=== PATIENT | female | born 1970 | race African-American/Black ===

== ENCOUNTER → 2020-01-02 13:25 | Outpatient (BNVA) | payer OTHER, SELFPAY | PROVIDERS: Visit Provider Advanced Practice Midwife | DX: Z30.42 Encounter for surveillance of injectable contraceptive (principal) | CPT/HCPCS: 96372; 99211; J1050 ==

== ENCOUNTER 2020-02-08 10:22 | Outpatient (REF) | payer OTHER, SELFPAY ==
--- NOTE | 2020-02-08 10:30 | EMG_ITS ---
HISTORY OF PRESENT ILLNESS: This is a 50-year-old woman with more than 6 month history of bilateral upper extremity numbness, tingling, dull ache, and some pain on opening and closing and spreading her fingers out. MEDICATIONS: She is currently on no medications. PHYSICAL EXAMINATION: On examination, she is alert and oriented with normal intellectual functions. Cranial nerves II through XII are normal. Muscle tone and strength are normal. No Tinel or Phalen sign. IMPRESSION: Rule out carpal tunnel syndrome, rule out cervical radiculopathy. Nerve conduction EMG study: Normal electrodiagnostic study of both upper extremities with no evidence of carpal tunnel syndrome or nerve entrapment. Normal EMG of C5-T1 innervated muscles bilaterally. MD KIA Coleman/KATHIE / [id number]
== END 2020-02-08 10:23 | disposition home or self-care (01) ==
LOC: HO.NEURO 10:22
PROVIDERS: PCP Internal Medicine; Visit Provider Internal Medicine
DX: R29.898 Other symptoms and signs involving the musculoskeletal system (principal); M79.641 Pain in right hand
CPT/HCPCS: 95886; 95913

== ENCOUNTER 2020-02-20 13:52 | Outpatient (REF) | payer OTHER, SELFPAY ==
[2020-02-21 11:56] LABS: BV Int Neg Control Negative (Negative); BV Int Pos Control Positive (Positive)
[2020-02-22 21:42] LABS: C. trachomatis RNA TMA NOT DETECTED (NOT DETECTED); N. gonorrhoeae RNA TMA NOT DETECTED (NOT DETECTED)
== END 2020-02-20 13:53 | disposition home or self-care (01) ==
LOC: HO.LAB 13:52
PROVIDERS: PCP Internal Medicine; Visit Provider Obstetrics & Gynecology
DX: Z01.419 Encounter for gynecological examination (general) (routine) without abnormal findings (principal); N84.1 Polyp of cervix uteri
CPT/HCPCS: 87480; 87491; 87510; 87591; 87660; 88305

== ENCOUNTER → 2020-02-29 13:38 | Outpatient (BNVA) | payer OTHER, SELFPAY | PROVIDERS: PCP Internal Medicine; Visit Provider Nurse Practitioner Family | DX: Z76.89 Persons encountering health services in other specified circumstances (principal) ==

== ENCOUNTER → 2020-03-23 13:59 | Outpatient (BNVA) | payer OTHER, SELFPAY | PROVIDERS: PCP Internal Medicine; Visit Provider Advanced Practice Midwife | DX: Z30.42 Encounter for surveillance of injectable contraceptive (principal) | CPT/HCPCS: 96372; 99211 ==

== ENCOUNTER 2020-03-26 12:29 | Outpatient (REF) | payer OTHER, SELFPAY ==
--- NOTE | ~2020-03-26 | MM_ITS ---
EXAMINATION: MM DIAGNOSTIC DIGITAL MAMMOGRAPHY, BILATERAL CLINICAL INFORMATION: Due for yearly. Follow-up benign-appearing nodule/duct ectasia mid right breast. No known family history breast cancer. The lifetime risk of breast cancer based on the Tyrer-Cuzick Model is 12%. COMPARISON: Mammography: 09/26/2019, 03/23/2019 (BI-RADS 0), 03/17/2018, 03/10/2017, targeted right breast ultrasound 03/29/2019. TECHNIQUE: Digital mammography is performed in craniocaudal and mediolateral oblique views along with computer-aided detection (CAD). FINDINGS: There are scattered areas of fibroglandular density (ACR BI-RADS breast composition Category b). Parenchymal pattern is similar to prior study. Nodularity central right breast just lateral to midline is stable from recent studies. There is no developing density or architectural abnormality. No abnormal calcifications. The left breast is unremarkable. The bilateral axilla and skin contours are unremarkable. There are no significant changes from prior study. Results are provided to the patient at time of visit by the technologist. MM/MM diagnostic mammo BI IMPRESSION: 1. Right: Benign nodularity central breast similar to recent exams. No suspicious changes. 2. Left: No mammographic evidence of malignancy. ASSESSMENT: BI-RADS 3: Probably Benign RECOMMENDATION: Diagnostic mammography at time of next annual exam, due in 12 months. This patient's information was entered into a reminder system with a target due date for their next mammogram.
== END 2020-03-26 12:30 | disposition home or self-care (01) ==
LOC: HO.MAMMO 12:29
PROVIDERS: PCP Internal Medicine; Visit Provider Internal Medicine
DX: R92.2 Inconclusive mammogram (principal)
CPT/HCPCS: 77066

== ENCOUNTER 2020-04-12 06:28 | Day surgery (SDC) | payer OTHER, SELFPAY ==
[2020-04-06 12:56] VITALS: BMI 20.5
--- NOTE | 2020-04-11 09:17 | P.CONAN_ITS ---
Documented by User: Enriqueta Dumont 04/11/20 09:18 HPI - Anesthesia Eval Consult details Narrative: 50yo F for Colonoscopy Confirm Height and Weight PMFSH Active Problems Active Problems: All Active Problems (Updated 04/06/20 @ 12:53 by Elma Larose) [place] contraception (Acute) Hives (Acute) Morbid obesity with BMI of 40.0-44.9, adult (Acute) Smoker (Acute) Asthma (Acute) Fibromyalgia (Acute) Bilateral hand pain (Acute) Weakness of both hands (Acute) Arthralgia (Acute) Past Medical History Medical History Arthralgia Asthma Bilateral hand pain Fibromyalgia Hives Morbid obesity with BMI of 40.0-44.9, adult REGINO on CPAP Smoker Weakness of both hands Family History Family History Father Medical history unknown Mother Medical history unknown Surgical History Surgical History History of History of repair of rotator cuff Social History Social History Are you a primary animal care provider to a significant other at home: No Do you presently have visiting nurse or other home services: No Alcohol intake: current Alcohol intake frequency: holidays/special occasions only Smoking Status: Current every day smoker Tobacco Type: Cigarette Packs Per Day: 1 Cigarettes Per Day: 20.0 Smoked in Last 30 Days: Yes Patient Interested in Nicotine Replacement: No Patient Given Instructions on How to Stop Smoking: Yes Date Education Initiated: 04/06/20 Use of substances other than those prescribed or required for medical reasons: No Have you been hit, kicked, punched, or otherwise hurt by someone within the past year? If so, by whom?: No Advance Directives: No Advance Directives Information Provided: No Advance Directives on File: No Recently lost weight without trying: No Gender identity: female Meds Allergies Allergy/AdvReac Type Severity Reaction Status Date / Time penicillin V Allergy Intermediate Hives, Verified 03/23/20 08:57 anaphylaxis Penicillins [PENICILLINS] Allergy Intermediate HIVES Verified 03/23/20 08:57 Home Medications Medication Instructions Recorded Confirmed Last Taken Type albuterol sulfate 2.5 mg CONTINUOUS NEBULIZATION TID 01/06/20 04/06/20 Unknown History PRN ml albuterol sulfate 90 mcg/actuation 2 puff INHALATION .4 TIMES A DAY 01/06/20 04/06/20 Unknown History aerosol inhaler PRN g Exam Exam Date and Time: April 11, 2020 0917 Height,Weight and Vital Signs: Height 5 ft 4 in Weight 54.431 kg Assessment and Plan Assessment Anesthesia Assessment: Chart Reviewed Documented by User: Sri Hines 04/12/20 07:35 PMFSH Past Medical History Medical History Arthralgia Asthma Bilateral hand pain Fibromyalgia Hives Morbid obesity with BMI of 40.0-44.9, adult REGINO on CPAP Smoker Weakness of both hands Family History Family History Father Medical history unknown Mother Medical history unknown Surgical History Surgical History History of History of repair of rotator cuff Social History Social History Are you a primary animal care provider to a significant other at home: No Do you presently have visiting nurse or other home services: No Alcohol intake: current Alcohol intake frequency: holidays/special occasions only Smoking Status: Current every day smoker Tobacco Type: Cigarette Packs Per Day: 1 Cigarettes Per Day: 20.0 Smoked in Last 30 Days: Yes Patient Interested in Nicotine Replacement: No Patient Given Instructions on How to Stop Smoking: Yes Date Education Initiated: 04/06/20 Use of substances other than those prescribed or required for medical reasons: No Have you been hit, kicked, punched, or otherwise hurt by someone within the past year? If so, by whom?: No Advance Directives: No Advance Directives Information Provided: No Advance Directives on File: No Recently lost weight without trying: No Gender identity: female Meds Allergies Allergy/AdvReac Type Severity Reaction Status Date / Time penicillin V Allergy Intermediate Hives, Verified 03/23/20 08:57 anaphylaxis Penicillins [PENICILLINS] Allergy Intermediate HIVES Verified 03/23/20 08:57 Home Medications Medication Instructions Recorded Confirmed Last Taken Type albuterol sulfate 2.5 mg CONTINUOUS NEBULIZATION TID 01/06/20 04/06/20 Unknown History PRN ml albuterol sulfate 90 mcg/actuation 2 puff INHALATION .4 TIMES A DAY 01/06/20 04/06/20 Unknown History aerosol inhaler PRN g Exam Airway Mallampati Class: I Neck ROM: Full Heart: RRR Lungs: CTA
[2020-04-12 06:42] VITALS: BP 136/84; PULSE 96; RESP 16; TEMP 37.1; O2SAT 97
[2020-04-12] MEDS: Lactated Ringers 1,000 ML 100 ML IVCONT (06:58)
[2020-04-12 07:46] VITALS: BMI 46.8
--- NOTE | 2020-04-12 07:48 | MHC.SHP ---
Pre-Procedural Eval Section B Chief Complaint: Screening Details of Present Illness: colon cancer screening No changes in clinical status since preop Relevant Family History (Specify if Yes): No Relevant Social History: None Present Medications: see Short Stay Collaborative assessment Medical History: Significant History (Morbid Obesity, asthma) History of Previous Operations: No relevant previous surgery Allergies: Allergies Allergy/AdvReac Type Severity Reaction Status Date / Time penicillin V Allergy Intermediate Hives, Verified 03/23/20 08:57 anaphylaxis Penicillins [PENICILLINS] Allergy Intermediate HIVES Verified 03/23/20 08:57 Review of Systems Sugical H&P ROS: Negative: Constitution, Cardiovascular and Gastrointestinal and Yes, Specify: Respiratory (asthma stable) Exam Surgical H&P Exam: Normal: HEENT, Normal: Heart, Normal: Lungs and Normal: Extremities and Significant Findings: Abdomen (central obesity) Plan Diagnosis/Plan: Unchanged I have reviewed the history and physical and performed a pertinent physical examination on my patient. No changes have occurred unless specified.yes
[2020-04-12 08:38] VITALS: BP 145/76; PULSE 97; RESP 16; TEMP 36.8; O2SAT 98
--- NOTE | 2020-04-12 08:50 | PM.OP ---
Brief Operative Note Date of Service: 04/12/20 Pre-op diagnosis: COLON CANCER SCREENING-#1 MORBID OBESITY HX REGINO-NO CPAP//ASTHMA Post-op diagnosis: other (POLYPS, ASPIRATION RISK WITH SEDATION/REGINO) Procedure: COLONOSCOPY EXCIS POLYPECTOMY X2, EPI INJECTION, HOT SNARE POLYPECTOMY X1 Implants: NONE Surgeon: Elvia Mendez MD Anesthesia: MAC (MD JOSE G--MD DONELL; RECOMEND CONSIDER GA FOR ANY FURTHER PROCEDURES WITH SEDATION.) Estimated blood loss (mL): 10 Pathology: other (PROX ASCENDING COLON, RECTAL(2POLYPS)) Condition: stable Disposition: PACU
[2020-04-12 08:53] VITALS: BP 150/78; PULSE 89; RESP 16; O2SAT 96
[2020-04-12 09:06] VITALS: BP 121/65; PULSE 86; RESP 16; O2SAT 98
--- NOTE | 2020-04-12 09:49 | HO.POSTANES ---
Post Anesthesia Evaluation Post Anesthesia Evaluation Vital Signs: Vital Signs Temp Pulse Resp BP Pulse Ox 04/12/20 09:06 86 16 121/65 98 04/12/20 08:53 89 16 150/78 H 96 04/12/20 08:38 98.2 F 97 16 145/76 H 98 04/12/20 06:42 98.8 F 96 16 136/84 97 Anesthesia: Monitored Mental Status: Awake Pain Control: Satisfactory Nausea/Vomiting: None Hydration: Adequate Anesthesia-Related Issues: No Anes. Related Issues
--- NOTE | 2020-04-12 12:59 | W.PM.OPN ---
Operative Note Operative Note Date of Service: 04/12/20 Narrative: 04/12/20 Pre-op diagnosis: COLON CANCER SCREENING-#1 MORBID OBESITY HX REGINO-NO CPAP//ASTHMA Post-op diagnosis: other (POLYPS, ASPIRATION RISK WITH SEDATION/REGINO) Procedure: COLONOSCOPY EXCIS POLYPECTOMY X2, EPI INJECTION, HOT SNARE POLYPECTOMY X1 Implants: NONE Surgeon: Elvia Mendez MD Anesthesia: MAC (MD JOSE G--MD DONELL; RECOMEND CONSIDER GA FOR ANY FURTHER PROCEDURES WITH SEDATION.) FINDINGS: MAR: Sphincter tone adequate Video colonoscope introduced without difficulty and navigated into the rectosigmoid sigmoid area. From there passage up through transverse, ascending colon wasdown into the cecum. PREP: SOME RESIDUAL SLIGHTLY THICK FLUID NEEDED FLUSNING AND SUCTIONING. There was significant spasm and increased respiratory excursions due to her REGINO. I identified a diminutive polyp in cecum-removed with excisional bx forceps. Slow withdrawal of scope, good rotational views were had. Another polyp identified in the rectum: epi injection 2cc submucosal, hot snare removal-retrieved. ARV was clear. Complex airway management due to her Morbid Obesity, Smoking hx and REGINO. Anesthesia suggested for next procedure like this consider General Anesthesia evaluation pre procedure. Estimated blood loss (mL): 10 Pathology: other (PROX ASCENDING COLON, RECTAL(2POLYPS)) Condition: stable Disposition: PACU REPEAT COLON CANCE SCREENING IN 3 YEARS DUE TO PRESENCE OF POLYPS AND SOME LIMITATIONS OF VIEWS DUE TO DIFFICULTY OF THE SEDATION.
== END 2020-04-12 09:35 | disposition home or self-care (01) ==
PROVIDERS: PCP Internal Medicine; Visit Provider Internal Medicine Gastroenterology
PROC: 0DJD8ZZ Inspection of Lower Intestinal Tract, Via Natural or Artificial Opening Endoscopic (ICD-10-PCS; CPT 45378; principal; 2020-04-12 07:30)
DX: Z12.11 Encounter for screening for malignant neoplasm of colon (principal); D12.2 Benign neoplasm of ascending colon; K62.1 Rectal polyp; J45.20 Mild intermittent asthma, uncomplicated; G47.33 Obstructive sleep apnea (adult) (pediatric); E66.01 Morbid (severe) obesity due to excess calories; Z68.41 Body mass index [BMI] 40.0-44.9, adult; F17.210 Nicotine dependence, cigarettes, uncomplicated; Z79.899 Other long term (current) drug therapy; Z88.0 Allergy status to penicillin
CPT/HCPCS: 45385; 45380; 45381; 88305; J0171

== ENCOUNTER → 2020-05-16 13:21 | Outpatient (BNVA) | payer OTHER, SELFPAY | PROVIDERS: PCP Internal Medicine; Visit Provider Nurse Practitioner Family ==

== ENCOUNTER 2020-05-17 13:39 | Outpatient (REF) | payer OTHER, SELFPAY ==
--- NOTE | ~2020-05-17 | XR_ITS ---
EXAMINATION: XR SHOULDER, LEFT CLINICAL INFORMATION: Pain COMPARISON: 07/28/2012 TECHNIQUE: AP external rotation, Grashey, scapular Y, and axillary views of the left shoulder. FINDINGS: No acute fracture or dislocation. There is widening of the acromioclavicular joint measuring up to 10 mm without step-off. Glenohumeral joint unremarkable. Soft tissues unremarkable. XR/XR shoulder LT min 2V IMPRESSION: No acute fracture or dislocation. Widening of the acromioclavicular joint may represent a grade 1 shoulder separation, indeterminate chronology.
== END 2020-05-17 13:40 | disposition home or self-care (01) ==
LOC: HO.XRAY 13:39
PROVIDERS: PCP Internal Medicine; Visit Provider Internal Medicine
DX: M25.512 Pain in left shoulder (principal)
CPT/HCPCS: 73030

== ENCOUNTER → 2020-05-23 08:46 | Outpatient (BNVA) | payer OTHER, SELFPAY | PROVIDERS: PCP Internal Medicine; Visit Provider Physician Assistant | DX: M75.82 Other shoulder lesions, left shoulder (principal) | CPT/HCPCS: 20610; 99202; J1040 ==

== ENCOUNTER 2020-05-25 18:50 | Outpatient (REF) | payer OTHER, SELFPAY ==
--- NOTE | ~2020-05-25 | MR_ITS ---
EXAMINATION: MRI LEFT SHOULDER WITHOUT CONTRAST CLINICAL INFORMATION: Left shoulder pain COMPARISON: Radiographs 05/17/2020. TECHNIQUE: MRI of the shoulder without contrast is performed on a 1.5 Kellie high-field scanner. FINDINGS: ROTATOR CUFF: Intact. Mild fatty atrophy at the subscapularis myotendinous junction which may be the result of a remote injury. BICEPS: Normal. CORACOACROMIAL ARCH: The undersurface of the acromion is flat, possibly post acromioplasty with a small subacromial spur. Resection of the distal clavicle. Mild subacromial-subdeltoid bursitis. Longitudinal edema along the posterolateral deltoid muscle superficially may be the result of a recent injection. LABRUM/CAPSULE: The posterior labrum is diminutive. GLENOHUMERAL JOINT/MARROW: No significant joint effusion. The humeral head is slightly subluxed posteriorly. ADDITIONAL FINDINGS: None. MR/MR shoulder LT wo con IMPRESSION: No rotator cuff tear. Possible remote injury at the subscapularis myotendinous junction noting fatty atrophy. Mild subacromial-subdeltoid bursitis. The posterior labrum is diminutive and the humeral head is slightly subluxed posteriorly. No acute findings.
== END 2020-05-25 18:51 | disposition home or self-care (01) ==
LOC: HO.MRI 18:50
PROVIDERS: Visit Provider Physician Assistant
DX: S46.002A Unspecified injury of muscle(s) and tendon(s) of the rotator cuff of left shoulder, initial encounter (principal)
CPT/HCPCS: 73221

== ENCOUNTER → 2020-06-07 14:26 | Outpatient (BNVA) | payer OTHER, SELFPAY | PROVIDERS: PCP Internal Medicine; Visit Provider Physician Assistant | DX: M75.82 Other shoulder lesions, left shoulder (principal); M79.7 Fibromyalgia | CPT/HCPCS: 99212 ==

== ENCOUNTER → 2020-06-08 13:00 | Outpatient (BNVA) | payer OTHER, SELFPAY | PROVIDERS: PCP Internal Medicine; Visit Provider Advanced Practice Midwife | DX: Z30.42 Encounter for surveillance of injectable contraceptive (principal) | CPT/HCPCS: 96372; 99211; J1050 ==

== ENCOUNTER 2020-06-20 15:30 | Outpatient (REF) | payer OTHER, SELFPAY ==
--- NOTE | ~2020-06-20 | US_ITS ---
EXAMINATION: LEFT UPPER EXTREMITY ULTRASOUND VENOUS DUPLEX. RIGHT SHOULDER. X-RAY. CLINICAL INFORMATION: Left arm pain. Right shoulder pain COMPARISON: None TECHNIQUE: Color, grayscale and Doppler imaging of left upper extremity was performed. Right shoulder 4 views. FINDINGS: RIGHT SHOULDER: The glenohumeral joint space is maintained normal. AC joint space is normal. There is minimal inferior glenohumeral and superior acromial spurring at the AC joint. No soft tissue calcification or loose body seen. No bony erosive changes. No acute fracture, dislocation or lytic process seen. The soft tissues are normal. ULTRASOUND VENOUS LEFT UPPER EXTREMITY: There is normal Doppler and color flow seen within left internal jugular, subclavian, axillary, basilic, brachial, radial, cephalic and ulnar veins. The soft tissues are normal. US/US venous duplex UE LT IMPRESSION: No visible acute fracture or dislocation right shoulder.
== END 2020-06-20 15:31 | disposition home or self-care (01) ==
LOC: HO.HMGCX 15:30
PROVIDERS: PCP Internal Medicine; Visit Provider Internal Medicine
DX: M79.602 Pain in left arm (principal); M25.511 Pain in right shoulder; M79.89 Other specified soft tissue disorders
CPT/HCPCS: 73030; 93971

== ENCOUNTER → 2020-07-02 15:31 | Outpatient (BNVA) | payer OTHER, SELFPAY | PROVIDERS: PCP Internal Medicine; Visit Provider Nurse Practitioner Family | DX: M79.18 Myalgia, other site (principal); M54.12 Radiculopathy, cervical region | CPT/HCPCS: 99202 ==

== ENCOUNTER 2020-07-03 12:51 | Outpatient (REF) | payer OTHER, SELFPAY ==
--- NOTE | ~2020-07-03 | XR_ITS ---
EXAMINATION: XR CERVICAL SPINE CLINICAL INFORMATION: Cervicalgia COMPARISON: 11/22/2014 TECHNIQUE: 3 views of the cervical spine were obtained. FINDINGS: No abnormal prevertebral soft tissue swelling is seen. No acute fracture is evident. There is again noted to be mild narrowing of the C5-6 disc space. Minimal spurring is present at this level. XR/XR cervical spine 3V IMPRESSION: Stable mild cervical spondylosis at the C5-6 level.
== END 2020-07-03 12:52 | disposition home or self-care (01) ==
LOC: HO.XRAY 12:51
PROVIDERS: PCP Internal Medicine; Visit Provider Nurse Practitioner Family
DX: M54.2 Cervicalgia (principal)
CPT/HCPCS: 72040

== ENCOUNTER → 2020-07-09 10:34 | Outpatient (BNVA) | payer OTHER, SELFPAY | PROVIDERS: PCP Internal Medicine; Visit Provider Nurse Practitioner Family ==

== ENCOUNTER 2020-07-10 15:08 | Outpatient (REF) | payer OTHER, SELFPAY ==
--- NOTE | ~2020-07-10 | MR_ITS ---
EXAMINATION: MR CERVICAL SPINE WITHOUT CONTRAST CLINICAL INFORMATION: Cervical region radiculopathy. COMPARISON: Cervical spine MRI 04/11/2015. TECHNIQUE: MRI of the cervical spine was obtained using routine sequences without contrast. FINDINGS: Straightening the cervical lordosis. The vertebral body heights are maintained. There is moderate disc volume loss at C5-C6. There is no bone marrow edema. There are no acute fractures. The craniocervical junction is unremarkable. The partially imaged intracranial compartment is unremarkable. No definite cord signal abnormality accounting for artifact. The cervical arterial flow voids are maintained. No significant extraspinal soft tissue findings. Small pars intermedia cyst within the posterior pituitary without mass effect. C2-C3: Shallow central disc protrusion without central canal stenosis. No foraminal stenosis. C3-C4: Uncovertebral joint spurring results in mild left-sided foraminal encroachment. No central canal and no right foraminal stenosis. C4-C5: Disc osteophyte results in mild to moderate central canal stenosis and flattening of the ventral cord. Uncovertebral joint hypertrophy and hypertrophic facet arthropathy result in mild bilateral foraminal encroachment. C5-C6: Diffuse disc osteophyte complex results in flattening of the ventral cord and moderate central canal stenosis. Advanced uncovertebral joint hypertrophy and hypertrophic facet arthropathy result in severe bilateral foraminal stenosis. C6-C7: Shallow central disc protrusion flattens the ventral cord resulting in mild to moderate central canal stenosis. Uncovertebral joint spurring and facet arthropathy result in mild to moderate left and mild right foraminal stenosis. C7-T1: Disc contour is normal. No central canal stenosis and no foraminal stenosis. MR/MR cervical spine wo con IMPRESSION: - Multilevel cervical spondylosis, greatest at C5-C6 where multifactorial degenerative changes result in moderate central canal stenosis, flattening of the ventral cord, and severe bilateral foraminal stenosis. - Spondylitic changes also result in mild to moderate central canal stenosis and flattening of the ventral cord at C4-C5 and C6-C7.
== END 2020-07-10 15:09 | disposition home or self-care (01) ==
LOC: HO.MRI 15:08
PROVIDERS: Visit Provider Anesthesiology
DX: M54.12 Radiculopathy, cervical region (principal)
CPT/HCPCS: 72141

== ENCOUNTER → 2020-07-17 11:49 | Outpatient (BNVA) | payer OTHER, SELFPAY | PROVIDERS: PCP Internal Medicine; Visit Provider Nurse Practitioner Family ==

== ENCOUNTER → 2020-08-29 13:04 | Outpatient (BNVA) | payer OTHER, SELFPAY | PROVIDERS: PCP Internal Medicine; Visit Provider Advanced Practice Midwife | DX: Z30.42 Encounter for surveillance of injectable contraceptive (principal) | CPT/HCPCS: 96372; 99211 ==

== ENCOUNTER → 2020-11-13 13:03 | Outpatient (BNVA) | payer OTHER, SELFPAY | PROVIDERS: PCP Internal Medicine; Visit Provider Advanced Practice Midwife | DX: Z30.42 Encounter for surveillance of injectable contraceptive (principal) | CPT/HCPCS: 96372; 99211 ==

== ENCOUNTER 2021-01-28 11:07 | Outpatient (REF) | payer OTHER, SELFPAY ==
[2021-01-28 11:23] LABS: MANUAL DIFF FLAG NO
[2021-01-28 11:55] LABS: Basophils Absolute Auto 0.1 X10*3/uL (0.0-0.2); Basophils Percent Auto 1.1 % (0-2); Eosinophils Absolute Auto 0.2 X10*3/uL (0.0-0.4); Eosinophils Percent Auto 2.1 % (0-4); Hematocrit 43.1 % (37.0-47.0); Hemoglobin 13.8 g/dl (12.0-16.0); Imm Gran Abs Auto 0.02 X10*3/uL (0.00-0.03); Imm Gran Pct Auto 0.3 % (0.0-0.4); Lymphocytes Absolute Auto 2.3 X10*3/uL (1.2-4.9); Lymphocytes Percent Auto 32.2 % (20-40); Mean Corpuscular Hemoglobin 29.7 pg (27.0-33.0); Mean Corpuscular Volume 92.9 fL (80.0-98.0); Mean Platelet Volume 11.2 fL (9.4-12.3); Monocytes Absolute Auto 0.6 X10*3/uL (0.1-1.2); Monocytes Percent Auto 8.1 % (2-11); Neutrophils Percent Auto 56.2 % (45-73); Platelet Count 227 X10*3/uL (160-400); Red Blood Count 4.64 X10*6/uL (4.20-5.50); Red Cell Distribution Width 15.4 % (11.0-16.0); White Blood Count 7.1 X10*3/uL (4.8-10.8)
[2021-01-28 12:20] LABS: Anion Gap 13 (12-20); Blood Urea Nitrogen 9 mg/dL (9-16); Calcium 9.3 mg/dL (8.4-10.2); Carbon Dioxide 24 mmol/L (22-29); Chloride 110 mmol/L (96-108); Cholesterol 199 mg/dL; Estimated Glomerular Filt Rate > 60; Glucose Random 111 mg/dL (60-115); HDL Cholesterol 36 mg/dL; LDL Cholesterol Calculated 145 mg/dl; Potassium 4.6 mmol/L (3.3-5.1); Sodium 142 mmol/L (135-145); Triglycerides 94 mg/dL; Uric Acid 5.8 mg/dL (2.4-5.7)
[2021-01-28 12:35] LABS: Estimated Average Glucose 120 mg/dL; Hemoglobin A1c % 5.8 %
[2021-01-28 13:07] LABS: Vitamin B12 482 pg/mL (200-900)
[2021-02-01 13:20] LABS: Vitamin D 25-OH, D2 <4 ng/mL; Vitamin D 25-OH, D3 10 ng/mL; Vitamin D 25-OH, Total 10 ng/mL (30-100)
== END 2021-01-28 11:08 | disposition home or self-care (01) ==
LOC: HO.LAB 11:07
PROVIDERS: PCP Internal Medicine; Visit Provider Nurse Practitioner Acute Care
DX: R73.03 Prediabetes (principal); M10.9 Gout, unspecified; E66.01 Morbid (severe) obesity due to excess calories
CPT/HCPCS: 36415; 80048; 80061; 82306; 82607; 82746; 83036; 84550; 85025

== ENCOUNTER 2021-02-01 13:33 | Outpatient (REF) | payer OTHER, SELFPAY ==
--- NOTE | ~2021-02-01 | MM_ITS ---
EXAMINATION: BONE DENSITOMETRY CLINICAL INDICATION: Screening for osteoporosis. COMPARISON: This is the patient's baseline examination. TECHNIQUE: Using a [employer] DXA System (software version: 13.1) manufactured by [employer], dual-energy x-ray absorptiometry was performed of the lumbar spine and left hip. The images are of good technical quality. Summary results are attached. FINDINGS: AP SPINE L1-L4: BMD 1.219 g/cm2, Z-score -0.9, T-score 0.3, normal. LEFT FEMUR, NECK: BMD 0.966 g/cm2, Z-score -1.3, T-score -0.5, normal. LEFT FEMUR, TOTAL: BMD 1.156 g/cm2, Z-score -0.1, T-score 1.2, normal. IDENTIFIED RISK FACTORS: Menopause, tobacco use (current smoker). HISTORY OF FRACTURE: None listed. MEDICATIONS: None listed. MM/XR DEXA axial skeleton IMPRESSION: 1. DIAGNOSIS: Normal bone density based on the lowest T-score value of -0.5 in the femoral neck applying World Health Organization criteria. 2. 10-YEAR FRACTURE RISK PREDICTION, FRAX: Major osteoporotic fracture (clinical spine, forearm, hip or shoulder) 1.7%. Hip fracture 0.1%. 3. Treatment Recommendations: NOF guidelines recommend consideration for treatment in postmenopausal women and men age 50 and older presenting with the following: -A hip or vertebral (clinical or morphometric) fracture. -T-score less than or equal to -2.5 at the femoral neck or spine after appropriate evaluation to exclude secondary causes. -Low bone mass at the hip or spine and a 10-year fracture probability by FRAX of greater than or equal to 3% for hip fracture or greater than or equal to 20% for major osteoporotic fracture based on the [place] adapted WHO algorithm. 4. Other Recommendations: All treatment decisions require clinical judgment and consideration of individual patient factors, including patient preferences, comorbidities, previous drug use, risk factors not captured in the FRAX model (e.g. frailty, falls, vitamin D deficiency, increased bone turnover, interval significant decline in bone density) and possible under or overestimation of fracture risk by FRAX. FUTURE SCAN RECOMMENDATION: People with diagnosed cases of osteoporosis or at high risk for fracture should have regular bone mineral density tests. For patients eligible for Medicare, routine testing is allowed once every 2 years. The testing frequency can be increased to one year for patients who have rapidly progressing disease, those who are receiving or discontinuing medical therapy to restore bone mass, or have additional risk factors.
== END 2021-02-01 13:34 | disposition home or self-care (01) ==
LOC: HO.MAMMO 13:33
PROVIDERS: PCP Internal Medicine; Visit Provider Nurse Practitioner Acute Care
DX: Z13.820 Encounter for screening for osteoporosis (principal); Z78.0 Asymptomatic menopausal state; F17.200 Nicotine dependence, unspecified, uncomplicated
CPT/HCPCS: 77080

== ENCOUNTER → 2021-02-13 15:40 | Outpatient (BNVA) | payer OTHER, SELFPAY | PROVIDERS: PCP Internal Medicine; Visit Provider Nurse Practitioner Family | DX: M25.561 Pain in right knee (principal); M25.562 Pain in left knee; M25.50 Pain in unspecified joint; M79.7 Fibromyalgia | CPT/HCPCS: 99212 ==

== ENCOUNTER 2021-02-21 13:49 | Outpatient (REF) | payer OTHER, SELFPAY ==
--- NOTE | ~2021-02-21 | XR_ITS ---
EXAMINATION: RIGHT KNEE 3 VIEWS LEFT KNEE 3 VIEWS CLINICAL INFORMATION: Pain bilateral knees COMPARISON: Knees 09/09/2017 TECHNIQUE: 3 views of the right knee 3 views of the left knee FINDINGS: Right knee: The joint spaces are preserved. There is mild osteophyte formation in the medial compartment. No joint effusion. Findings similar to prior. Left knee: The joint spaces are preserved. There is mild osteophyte formation in the medial compartment. No joint effusion. Findings progressed from prior. XR/XR knee LT 3V IMPRESSION: Mild osteoarthritis bilateral knees. No joint effusions.
--- NOTE | ~2021-02-21 | XR_ITS ---
EXAMINATION: RIGHT KNEE 3 VIEWS LEFT KNEE 3 VIEWS CLINICAL INFORMATION: Pain bilateral knees COMPARISON: Knees 09/09/2017 TECHNIQUE: 3 views of the right knee 3 views of the left knee FINDINGS: Right knee: The joint spaces are preserved. There is mild osteophyte formation in the medial compartment. No joint effusion. Findings similar to prior. Left knee: The joint spaces are preserved. There is mild osteophyte formation in the medial compartment. No joint effusion. Findings progressed from prior. XR/XR knee RT 3V IMPRESSION: Mild osteoarthritis bilateral knees. No joint effusions.
== END 2021-02-21 13:50 | disposition home or self-care (01) ==
LOC: HO.XRAY 13:49
PROVIDERS: PCP Internal Medicine; Visit Provider Nurse Practitioner Family
DX: M25.561 Pain in right knee (principal); M25.562 Pain in left knee
CPT/HCPCS: 73562

== ENCOUNTER 2021-03-07 16:28 | Outpatient (REF) | payer OTHER, SELFPAY ==
--- NOTE | ~2021-03-07 | MM_ITS ---
EXAMINATION: MM DIAGNOSTIC DIGITAL BREAST TOMOSYNTHESIS, BILATERAL CLINICAL INFORMATION: Due for yearly. Also follow-up probable benign circumscribed nodule central 11:00 right breast. The lifetime risk of breast cancer based on the Tyrer-Cuzick Model is 12%. COMPARISON: Mammography: 03/26/2020, 09/26/2019, 03/23/2019 (BI-RADS 0), 03/17/2018, 03/10/2017, targeted left breast ultrasound 03/29/2019. TECHNIQUE: Digital breast tomosynthesis is performed in both the craniocaudal and mediolateral oblique views along with computer-aided detection (CAD). Synthesized 2D images are generated from the tomosynthesis. FINDINGS: There are scattered areas of fibroglandular density (ACR BI-RADS breast composition Category b). There are no significant masses, abnormal calcifications, or other abnormalities. There is no developing density. The circumscribed nodule central 11:00 right breast is no longer seen with certainty. The axilla and skin contours are unremarkable. Results are provided to the patient at time of visit by the technologist. MM/MM tomosynthesis diagnostic BI IMPRESSION: 1. No mammographic evidence of malignancy. 2. Benign circumscribed nodule central 11:00 right breast for follow-up no longer seen with certainty. ASSESSMENT: BI-RADS 2: Benign RECOMMENDATION: Routine annual mammography screening. This patient's information was entered into a reminder system with a target due date for their next mammogram.
== END 2021-03-07 16:29 | disposition home or self-care (01) ==
LOC: HO.MAMMO 16:28
PROVIDERS: PCP Internal Medicine; Visit Provider Internal Medicine
DX: N63.11 Unspecified lump in the right breast, upper outer quadrant (principal)
CPT/HCPCS: 77062; 77066

== ENCOUNTER 2021-05-07 13:55 | Outpatient (REF) | payer OTHER, SELFPAY ==
--- NOTE | ~2021-05-07 | XR_ITS ---
EXAMINATION: XR HAND, LEFT CLINICAL INFORMATION: Pain COMPARISON: Previous x-ray September 2019 TECHNIQUE: PA, lateral, and oblique views of the left hand. FINDINGS: The bones and soft tissues are normal. No fracture. Alignment is anatomic. Joint spaces are maintained. No erosions or soft tissue calcifications. XR/XR hand LT min 3V IMPRESSION: Normal left hand.
== END 2021-05-07 13:56 | disposition home or self-care (01) ==
LOC: HO.HOSX 13:55
PROVIDERS: PCP Internal Medicine; Visit Provider Orthopaedic Surgery
DX: M77.8 Other enthesopathies, not elsewhere classified (principal); M25.532 Pain in left wrist; M79.642 Pain in left hand
CPT/HCPCS: 73130; 99202

== ENCOUNTER 2021-05-20 12:06 | Outpatient (REF) | payer OTHER, SELFPAY ==
[2021-05-20 13:22] LABS: Blood Urea Nitrogen 10 mg/dL (9-16); Estimated Glomerular Filt Rate > 60
== END 2021-05-20 12:07 | disposition home or self-care (01) ==
LOC: HO.LAB 12:06
PROVIDERS: PCP Internal Medicine; Visit Provider Internal Medicine
DX: G47.33 Obstructive sleep apnea (adult) (pediatric) (principal); M25.50 Pain in unspecified joint; G89.29 Other chronic pain; M25.551 Pain in right hip; M25.552 Pain in left hip
CPT/HCPCS: 36415; 82565; 84520

== ENCOUNTER → 2021-05-21 10:49 | Outpatient (BNVA) | payer OTHER, SELFPAY | PROVIDERS: PCP Internal Medicine; Visit Provider Nurse Practitioner Family | DX: G47.33 Obstructive sleep apnea (adult) (pediatric) (principal); R40.0 Somnolence; R06.83 Snoring | CPT/HCPCS: 99202 ==

== ENCOUNTER → 2021-06-25 10:59 | Outpatient (REF) | payer OTHER, SELFPAY | LOC: HO.SL 10:59 | PROVIDERS: PCP Internal Medicine; Visit Provider Nurse Practitioner Family | DX: E66.01 Morbid (severe) obesity due to excess calories (principal); R06.83 Snoring; R40.0 Somnolence | CPT/HCPCS: 95806 ==

== ENCOUNTER 2021-10-02 13:01 | Outpatient (REF) | payer OTHER, SELFPAY | END 2021-10-02 13:02 | disposition home or self-care (01) | LOC: HO.LAB 13:01 | PROVIDERS: PCP Internal Medicine; Visit Provider Advanced Practice Midwife | DX: Z01.419 Encounter for gynecological examination (general) (routine) without abnormal findings (principal); N84.1 Polyp of cervix uteri | CPT/HCPCS: 57500; 58558; 88305 ==

== ENCOUNTER 2021-12-25 09:20 | Outpatient (REF) | payer OTHER, SELFPAY ==
--- NOTE | 2021-12-25 09:30 | EMG_ITS ---
Please see scanned EMG / Nerve Conduction Report. MTDD
[2021-12-25 10:42] LABS: MANUAL DIFF FLAG NO
[2021-12-25 11:00] LABS: Basophils Absolute Auto 0.1 X10*3/uL (0.0-0.2); Basophils Percent Auto 0.9 % (0-2); Eosinophils Absolute Auto 0.2 X10*3/uL (0.0-0.4); Eosinophils Percent Auto 2.3 % (0-4); Hematocrit 42.7 % (37.0-47.0); Hemoglobin 13.8 g/dl (12.0-16.0); Imm Gran Abs Auto 0.02 X10*3/uL (0.00-0.03); Imm Gran Pct Auto 0.3 % (0.0-0.4); Lymphocytes Absolute Auto 2.2 X10*3/uL (1.2-4.9); Lymphocytes Percent Auto 30.1 % (20-40); Mean Corpuscular HGB Conc 32.3 g/dl (31.0-35.0); Mean Corpuscular Hemoglobin 29.7 pg (27.0-33.0); Mean Corpuscular Volume 91.8 fL (80.0-98.0); Mean Platelet Volume 10.9 fL (9.4-12.3); Monocytes Absolute Auto 0.7 X10*3/uL (0.1-1.2); Monocytes Percent Auto 9.4 % (2-11); Neutrophils Absolute Auto 4.2 x10*3/uL (2.0-8.3); Platelet Count 219 X10*3/uL (160-400); Red Blood Count 4.65 X10*6/uL (4.20-5.50); Red Cell Distribution Width 15.1 % (11.0-16.0); White Blood Count 7.4 X10*3/uL (4.8-10.8)
[2021-12-25 11:09] LABS: Estimated Average Glucose 114 mg/dL; Hemoglobin A1c % 5.6 %
[2021-12-25 11:28] LABS: Alanine Aminotransferase 14 U/L (0-31); Albumin Level 4.1 g/dL (3.5-5.0); Alkaline Phosphatase 85 U/L (39-117); Anion Gap 16 (12-20); Aspartate Amino Transferase 12 U/L (5-31); Bilirubin Total 0.4 mg/dL (0.0-1.0); Blood Urea Nitrogen 9 mg/dL (9-16); Carbon Dioxide 25 mmol/L (22-29); Chloride 106 mmol/L (96-108); Cholesterol 188 mg/dL; Estimated Glomerular Filt Rate > 60; Glucose Fasting 109 mg/dL (60-99); HDL Cholesterol 37 mg/dL; LDL Cholesterol Calculated 135 mg/dl; Potassium 4.8 mmol/L (3.3-5.1); Sodium 142 mmol/L (135-145); Total Protein 6.7 g/dL (6.5-8.0); Triglycerides 81 mg/dL
[2021-12-25 11:40] LABS: Appearance Urine Clear; Color Urine Yellow; Glucose Urine UA Negative (Negative); Leukocyte Esterase Urine Negative (Negative); Nitrite Urine Negative (Negative); Specific Gravity - Urine 1.025 (1.005-1.025); UMIC TRIGGER UACC YES; Urine Blood Small (1+) (Negative); Urine Ketones Negative (Negative); Urine Protein Negative (Neg-Trace)
[2021-12-25 11:47] LABS: Bacteria Urine 1+ (None Seen); Hyaline Casts Urine 0-2 /LPF (0-2); WBC Urine 0-5 /HPF (0-5)
[2021-12-25 11:53] LABS: TSH reflex Free T4 0.99 uIU/mL (0.32-4.0); Vitamin D 25-OH Total 13.3 ng/mL (>30)
[2021-12-25 12:09] LABS: Folate 7.5 ng/mL (> or = 4.0); Vitamin B12 512 pg/mL (200-900)
[2021-12-25 13:21] LABS: Erythrocyte Sedimentation Rate 27 MM/HR (0-20)
== END 2021-12-25 09:21 | disposition home or self-care (01) ==
LOC: HO.NEURO 09:20
PROVIDERS: PCP Internal Medicine; Visit Provider Internal Medicine
DX: M25.531 Pain in right wrist (principal); E55.9 Vitamin D deficiency, unspecified; R73.9 Hyperglycemia, unspecified; E78.00 Pure hypercholesterolemia, unspecified; I10 Essential (primary) hypertension; E53.8 Deficiency of other specified B group vitamins; M79.7 Fibromyalgia; J45.20 Mild intermittent asthma, uncomplicated; E66.01 Morbid (severe) obesity due to excess calories
CPT/HCPCS: 36415; 80053; 80061; 81001; 82306; 82607; 82746; 83036; 84443; 85025; 85652; 95885; 95913

== ENCOUNTER → 2022-03-03 10:25 | Outpatient (BNVA) | payer OTHER, SELFPAY | PROVIDERS: PCP Internal Medicine; Visit Provider Anesthesiology | DX: M25.561 Pain in right knee (principal); M25.562 Pain in left knee; M25.531 Pain in right wrist; M25.532 Pain in left wrist; M79.7 Fibromyalgia | CPT/HCPCS: 99212 ==

== ENCOUNTER 2022-03-12 13:41 | Outpatient (REF) | payer OTHER, SELFPAY ==
--- NOTE | ~2022-03-12 | MM_ITS ---
EXAMINATION: MM SCREENING DIGITAL BREAST TOMOSYNTHESIS, BILATERAL CLINICAL INFORMATION: Screening. Asymptomatic. The lifetime risk of breast cancer based on the Tyrer-Cuzick Model is 12%. COMPARISON: Mammography: 03/07/2021, 03/26/2020, 09/26/2019, 03/23/2019, ultrasound right breast 03/29/2019 TECHNIQUE: Digital breast tomosynthesis is performed in both the craniocaudal and mediolateral oblique views along with computer-aided detection (CAD). Synthesized 2D images are generated from the tomosynthesis. FINDINGS: There are scattered areas of fibroglandular density (ACR BI-RADS breast composition Category b). There are no significant masses, abnormal calcifications, or other abnormalities. Parenchymal pattern is similar to prior studies. There is no developing density or architectural abnormality. The axilla and skin contours are unremarkable. MM/MM tomosynthesis screening BI IMPRESSION: No mammographic evidence of malignancy. ASSESSMENT: BI-RADS 1: Negative RECOMMENDATION: Routine annual mammography screening. This patient's information was entered into a reminder system with a target due date for their next mammogram.
== END 2022-03-12 13:42 | disposition home or self-care (01) ==
LOC: HO.MAMMO 13:41
PROVIDERS: PCP Internal Medicine; Visit Provider Internal Medicine
DX: Z12.31 Encounter for screening mammogram for malignant neoplasm of breast (principal)
CPT/HCPCS: 77063; 77067

== ENCOUNTER → 2022-03-13 08:26 | Outpatient (BNVA) | payer OTHER, SELFPAY | PROVIDERS: PCP Internal Medicine; Visit Provider Student in an Organized Health Care Education/Training Program | DX: M25.531 Pain in right wrist (principal); M25.532 Pain in left wrist | CPT/HCPCS: 99202 ==

== ENCOUNTER 2022-04-07 13:34 | Outpatient (REF) | payer OTHER, SELFPAY ==
[2022-04-07 13:52] LABS: MANUAL DIFF FLAG NO
[2022-04-07 15:17] LABS: Basophils Absolute Auto 0.1 X10*3/uL (0.0-0.2); Basophils Percent Auto 0.8 % (0-2); Eosinophils Absolute Auto 0.1 X10*3/uL (0.0-0.4); Eosinophils Percent Auto 1.7 % (0-4); Hematocrit 43.7 % (37.0-47.0); Hemoglobin 14.2 g/dl (12.0-16.0); Imm Gran Abs Auto 0.01 X10*3/uL (0.00-0.03); Imm Gran Pct Auto 0.2 % (0.0-0.4); Lymphocytes Absolute Auto 2.6 X10*3/uL (1.2-4.9); Lymphocytes Percent Auto 39.4 % (20-40); Mean Corpuscular HGB Conc 32.5 g/dl (31.0-35.0); Mean Corpuscular Hemoglobin 29.8 pg (27.0-33.0); Mean Corpuscular Volume 91.8 fL (80.0-98.0); Monocytes Absolute Auto 0.6 X10*3/uL (0.1-1.2); Monocytes Percent Auto 8.6 % (2-11); Neutrophils Absolute Auto 3.2 x10*3/uL (2.0-8.3); Neutrophils Percent Auto 49.3 % (45-73); Platelet Count 187 X10*3/uL (160-400); Red Blood Count 4.76 X10*6/uL (4.20-5.50); Red Cell Distribution Width 16.2 % (11.0-16.0); White Blood Count 6.5 X10*3/uL (4.8-10.8)
[2022-04-07 15:17] LABS: Appearance Urine Cloudy; Color Urine Dark Yellow; Glucose Urine UA Negative (Negative); Leukocyte Esterase Urine Trace (Negative); Nitrite Urine Negative (Negative); Specific Gravity - Urine 1.025 (1.005-1.025); UMIC TRIGGER UA YES; Urine Blood Small (1+) (Negative); Urine Ketones Negative (Negative); Urine Protein Negative (Neg-Trace)
[2022-04-07 15:23] LABS: Estimated Average Glucose 128 mg/dL; Hemoglobin A1C 150.5664 umol/L; Hemoglobin A1c % 6.1 %
[2022-04-07 15:28] LABS: Bacteria Urine 4+ (None Seen); Hyaline Casts Urine 0-2 /LPF (0-2); Squamous Epithelial Cell Urine >20 /HPF (0-2)
[2022-04-07 15:41] LABS: Protein/Creatinine Ratio, Ur 0.05 (<0.2); Total Protein Urine Random 11 mg/dL (<12)
[2022-04-07 15:54] LABS: Erythrocyte Sedimentation Rate 18 MM/HR (0-20)
[2022-04-07 15:59] LABS: Alanine Aminotransferase 17 U/L (0-31); Albumin Level 4.1 g/dL (3.5-5.0); Alkaline Phosphatase 66 U/L (39-117); Anion Gap 15 (12-20); Aspartate Amino Transferase 13 U/L (5-31); Bilirubin Total 0.6 mg/dL (0.0-1.0); Blood Urea Nitrogen 13 mg/dL (9-16); C Reactive Protein 0.48 mg/dL (< or = 0.50); Calcium 9.1 mg/dL (8.4-10.2); Carbon Dioxide 26 mmol/L (22-29); Chloride 105 mmol/L (96-108); Estimated Glomerular Filt Rate 58; Glucose Random 134 mg/dL (60-115); Potassium 4.3 mmol/L (3.3-5.1); Rheumatoid Factor < 13.0 IU/mL (<15.0); Sodium 142 mmol/L (135-145); Total Protein 6.6 g/dL (6.5-8.0); Uric Acid 5.5 mg/dL (2.4-5.7)
[2022-04-08 11:39] LABS: Complement C3 182 mg/dL (83-193)
[2022-04-08 12:59] LABS: Anti DNA DS Antibody <1 IU/mL; Antibody to SS-A Antigen <1.0 NEG AI (<1.0 NEG); Antibody to SS-B Antigen <1.0 NEG AI (<1.0 NEG); SM/Ribonucleoprotein Ab <1.0 NEG AI (<1.0 NEG); Smith Protein <1.0 NEG AI (<1.0 NEG)
[2022-04-08 14:18] LABS: Cyclic Citrullinated Peptide <16 UNITS
[2022-04-08 15:13] LABS: Anti Nuclear Antibody Screen NEGATIVE (NEGATIVE)
[2022-04-09 07:39] LABS: HBc Num1 0.13 S/CO (0.00-0.79); HBsAGNum1 0.23 S/CO (0.00-0.99); Hepatitis A Antibody IgM 0.24 Index (0-0.79); Hepatitis B Core Antibody Nonreactive (Nonreactive); Hepatitis B Surface Antigen Negative (Negative); ~HepC Num1 0.04 S/CO (0.00-0.79); ~Hepatitis A Antibody IgM Nonreactive (Nonreactive); ~Hepatitis B Surface Antibody NONREACTIVE (Nonreactive); ~Hepatitis C Antibody Nonreactive (Nonreactive)
[2022-04-09 11:33] LABS: Prot Elec - Albumin 3.8 g/dL (3.8-4.8); Prot Elec - Alpha1 0.3 g/dL (0.2-0.3); Prot Elec - Alpha2 1.1 g/dL (0.5-0.9); Prot Elec - Beta 1 0.4 g/dL (0.4-0.6); Prot Elec - Beta 2 0.4 g/dL (0.2-0.5); Prot Elec - Gamma 0.8 g/dL (0.8-1.7); Prot Elec - Total Protein 6.8 g/dL (6.1-8.1)
[2022-04-09 14:44] LABS: IgA 99 mg/dL (47-310); IgG 805 mg/dL (600-1640); IgM 134 mg/dL (50-300)
[2022-04-11 13:23] LABS: DNAds, Crithidia Antibody Negative (Negative)
== END 2022-04-07 13:35 | disposition home or self-care (01) ==
LOC: HO.LAB 13:34
PROVIDERS: PCP Internal Medicine; Visit Provider Student in an Organized Health Care Education/Training Program
DX: Z13.1 Encounter for screening for diabetes mellitus (principal); Z11.59 Encounter for screening for other viral diseases; M06.9 Rheumatoid arthritis, unspecified; M25.561 Pain in right knee; M25.562 Pain in left knee; M32.9 Systemic lupus erythematosus, unspecified
CPT/HCPCS: 36415; 80053; 81001; 82784; 83036; 84156; 84165; 84550; 85025; 85652; 86038; 86039; 86140; 86160; 86200; 86225; 86235; 86255; 86334; 86431; 86704; 86706; 86709; 86803; 87340

== ENCOUNTER → 2022-04-11 10:12 | Outpatient (BNVA) | payer OTHER, SELFPAY | PROVIDERS: PCP Internal Medicine; Visit Provider Psychiatry & Neurology Neurology | DX: M25.532 Pain in left wrist (principal); R20.0 Anesthesia of skin; R20.2 Paresthesia of skin; G47.33 Obstructive sleep apnea (adult) (pediatric) | CPT/HCPCS: 99212 ==

== ENCOUNTER → 2022-05-16 13:46 | Outpatient (BNVA) | payer OTHER, SELFPAY | PROVIDERS: PCP Internal Medicine; Visit Provider Student in an Organized Health Care Education/Training Program | DX: M06.09 Rheumatoid arthritis without rheumatoid factor, multiple sites (principal); M79.7 Fibromyalgia; E66.01 Morbid (severe) obesity due to excess calories; Z68.42 Body mass index [BMI] 45.0-49.9, adult; Z79.631 Long term (current) use of antimetabolite agent; Z79.52 Long term (current) use of systemic steroids | CPT/HCPCS: 99212 ==

== ENCOUNTER 2022-09-05 14:20 | Outpatient (REF) | payer OTHER, SELFPAY ==
[2022-09-05 14:32] LABS: MANUAL DIFF FLAG NO
[2022-09-05 15:58] LABS: Basophils Absolute Auto 0.1 X10*3/uL (0.0-0.2); Eosinophils Absolute Auto 0.2 X10*3/uL (0.0-0.4); Eosinophils Percent Auto 2.7 % (0-4); Hematocrit 44.1 % (37.0-47.0); Hemoglobin 14.2 g/dl (12.0-16.0); Imm Gran Abs Auto 0.02 X10*3/uL (0.00-0.03); Imm Gran Pct Auto 0.3 % (0.0-0.4); Lymphocytes Absolute Auto 2.6 X10*3/uL (1.2-4.9); Lymphocytes Percent Auto 36.2 % (20-40); Mean Corpuscular HGB Conc 32.2 g/dl (31.0-35.0); Mean Corpuscular Hemoglobin 29.5 pg (27.0-33.0); Mean Corpuscular Volume 91.5 fL (80.0-98.0); Mean Platelet Volume 12.3 fL (9.4-12.3); Monocytes Absolute Auto 0.9 X10*3/uL (0.1-1.2); Monocytes Percent Auto 12.6 % (2-11); Neutrophils Absolute Auto 3.3 x10*3/uL (2.0-8.3); Neutrophils Percent Auto 47.2 % (45-73); Platelet Count 230 X10*3/uL (160-400); Red Blood Count 4.82 X10*6/uL (4.20-5.50); Red Cell Distribution Width 15.2 % (11.0-16.0); White Blood Count 7.1 X10*3/uL (4.8-10.8)
[2022-09-05 16:54] LABS: Alanine Aminotransferase 25 U/L (0-31); Alkaline Phosphatase 73 U/L (39-117); Anion Gap 13 (12-20); Aspartate Amino Transferase 17 U/L (5-31); Bilirubin Total 0.4 mg/dL (0.0-1.0); Blood Urea Nitrogen 10 mg/dL (9-16); Calcium 9.5 mg/dL (8.4-10.2); Carbon Dioxide 25 mmol/L (22-29); Chloride 105 mmol/L (96-108); Estimated Glomerular Filt Rate > 60; Glucose Random 70 mg/dL (60-115); Potassium 4.3 mmol/L (3.3-5.1); Sodium 139 mmol/L (135-145)
[2022-09-05 16:59] LABS: Erythrocyte Sedimentation Rate 20 MM/HR (0-20)
[2022-09-08 16:28] LABS: TS Negative Control Passed; TS Panel A 1; TS Panel B 0; TS Positive Control Passed; TSpotTB Negative (Negative)
== END 2022-09-05 14:21 | disposition home or self-care (01) ==
LOC: HO.LAB 14:20
PROVIDERS: PCP Internal Medicine; Visit Provider Student in an Organized Health Care Education/Training Program
DX: Z11.7 Encounter for testing for latent tuberculosis infection (principal); Z79.631 Long term (current) use of antimetabolite agent
CPT/HCPCS: 36415; 80053; 85025; 85652; 86140; 86481

== ENCOUNTER 2022-09-08 12:05 | Outpatient (REF) | payer OTHER, SELFPAY ==
[2022-09-08 12:29] LABS: MANUAL DIFF FLAG NO
[2022-09-08 13:10] LABS: Appearance Urine Cloudy; Color Urine Yellow; Glucose Urine UA Negative (Negative); Leukocyte Esterase Urine Negative (Negative); Nitrite Urine Negative (Negative); Specific Gravity - Urine 1.025 (1.005-1.025); UMIC TRIGGER UACC YES; Urine Blood Moderate (2+) (Negative); Urine Ketones Negative (Negative); Urine Protein Negative (Neg-Trace)
[2022-09-08 13:31] LABS: Basophils Absolute Auto 0.1 X10*3/uL (0.0-0.2); Basophils Percent Auto 0.8 % (0-2); Eosinophils Absolute Auto 0.2 X10*3/uL (0.0-0.4); Eosinophils Percent Auto 2.6 % (0-4); Hematocrit 43.4 % (37.0-47.0); Imm Gran Abs Auto 0.03 X10*3/uL (0.00-0.03); Imm Gran Pct Auto 0.4 % (0.0-0.4); Lymphocytes Absolute Auto 2.7 X10*3/uL (1.2-4.9); Lymphocytes Percent Auto 35.8 % (20-40); Mean Corpuscular HGB Conc 32.3 g/dl (31.0-35.0); Mean Corpuscular Hemoglobin 29.6 pg (27.0-33.0); Mean Corpuscular Volume 91.8 fL (80.0-98.0); Mean Platelet Volume 12.2 fL (9.4-12.3); Monocytes Absolute Auto 0.8 X10*3/uL (0.1-1.2); Monocytes Percent Auto 10.1 % (2-11); Neutrophils Absolute Auto 3.8 x10*3/uL (2.0-8.3); Neutrophils Percent Auto 50.3 % (45-73); Platelet Count 210 X10*3/uL (160-400); Red Blood Count 4.73 X10*6/uL (4.20-5.50); Red Cell Distribution Width 15.3 % (11.0-16.0); White Blood Count 7.6 X10*3/uL (4.8-10.8)
[2022-09-08 13:36] LABS: Bacteria Urine 3+ (None Seen); Squamous Epithelial Cell Urine >20 /HPF (0-2); UACC Culture Trigger YES
[2022-09-08 13:46] LABS: Estimated Average Glucose 120 mg/dL; Hemoglobin A1c % 5.8 %
[2022-09-08 13:54] LABS: Alanine Aminotransferase 26 U/L (0-31); Alkaline Phosphatase 80 U/L (39-117); Anion Gap 11 (12-20); Aspartate Amino Transferase 16 U/L (5-31); Bilirubin Total 0.3 mg/dL (0.0-1.0); Blood Urea Nitrogen 13 mg/dL (9-16); Calcium 9.4 mg/dL (8.4-10.2); Carbon Dioxide 27 mmol/L (22-29); Chloride 109 mmol/L (96-108); Cholesterol 233 mg/dL; Estimated Glomerular Filt Rate > 60; Glucose Fasting 93 mg/dL (60-99); HDL Cholesterol 41 mg/dL; LDL Cholesterol Calculated 148 mg/dl; Potassium 4.4 mmol/L (3.3-5.1); Sodium 143 mmol/L (135-145); Total Protein 7.1 g/dL (6.5-8.0); Triglycerides 223 mg/dL
[2022-09-08 14:10] LABS: TSH reflex Free T4 1.61 uIU/mL (0.32-4.0); Vitamin D 25-OH Total 36.6 ng/mL (>30)
== END 2022-09-08 12:06 | disposition home or self-care (01) ==
LOC: HO.LAB 12:05
PROVIDERS: PCP Internal Medicine; Visit Provider Internal Medicine
DX: R30.0 Dysuria (principal); R73.01 Impaired fasting glucose; E78.00 Pure hypercholesterolemia, unspecified; E55.9 Vitamin D deficiency, unspecified; I10 Essential (primary) hypertension
CPT/HCPCS: 36415; 80053; 80061; 81001; 81003; 82306; 83036; 84443; 85025; 87086

== ENCOUNTER 2022-09-11 09:50 | Outpatient (AMB) | payer OTHER, SELFPAY ==
[2022-09-11 09:48] VITALS: BP 130/84; PULSE 89; RESP 18; TEMP 36.7; O2SAT 99; BMI 48.9
--- NOTE | 2022-09-11 09:48 | A.OFFVIS_ITS ---
Intake Vital Signs 09/11/22 09:48 Height 5 ft 4 in Weight 285 lb BMI 48.9 BP 130/84 Blood Pressure Location Rt brachial Position Sitting Respiration 18 Pulse 89 Pulse Source Pulse Oximeter Temp 98.1 F Temp Source Temporal Artery Scan Pulse Oximetry (%) 99 Oxygen Delivery Method Room Air Intake Visit Reasons: RA Allergies tramadol Allergy (Severe, Verified 09/11/22 10:00) n/v Penicillins [PENICILLINS] Allergy (Intermediate, Verified 09/11/22 10:00) HIVES Medication List - Last Reconciled 09/11/22 by Phil Peters MD brimonidine 0.2% 1 drp ophthalmic (eye) Q8H cetirizine (Zyrtec) 10 mg PO DAILY cholecalciferol (vitamin D3) 50 mcg PO DAILY 90 days fluocinonide 0.05% topical BID fluticasone propionate 110 mcg/actuation (Flovent HFA) 2 puffs inhalation BID 30 days folic acid 1 mg PO DAILY ibuprofen (Advil) 200 mg PO Q6H PRN ibuprofen-acetaminophen 125-250 mg (Advil Dual Action) 3 tabs PO ONCE PRN latanoprost 0.005% 1 drp ophthalmic (eye) QPM methotrexate sodium 20 mg (8 x 2.5 mg) PO QWEEK prednisone Take 2 tabs once daily by mouth with breakfast for 2 weeks then 1 time daily for 2 weeks then stop Ventolin HFA 90 mcg/actuation (albuterol sulfate) 2 puffs inhalation Q6H PRN 30 days NS HPI HPI Comments History of Present Illness Details 52-year-old female with seronegative rheumatoid arthritis returns for follow-up. Patient did not take methotrexate as instructed as she was worried about side effects. She continues to have pain and swelling in her wrists, knees, ankles, feet. States that only medication that helped was the prednisone. Initial history: This is a 52-year-old morbidly obese female with a past medical history of asthma, anxiety, fibromyalgia, REGINO, degenerative disc disease cervical spine presents for evaluation of bilateral hand pain and swelling. Per patient the condition started a little over a year ago with bilateral hands, wrist swelling and pain, associated with morning stiffness lasting 30 minutes. Patient would have difficulty grabbing objects. Recently been having left ankle swelling without pain. Patient states that adult dual action will provide some relief. She stated she had hives do weeks ago resolved with Zyrtec. She denies any history suggestive of Raynaud's. She continues to smoke. No history of DVT/PE. [facility] Medical History Arthralgia Asthma Bilateral hand pain Degenerative cervical spinal stenosis Dermatitis Fibromyalgia Hives Impaired fasting glucose Morbid obesity with body mass index (BMI) of 40.0 to 49.9 Numbness and tingling in left hand Obstructive sleep apnea REGINO on CPAP Pain and swelling of left upper extremity Polyarthritis Pure hypercholesterolemia Right shoulder pain Smoker Tubular adenoma Weakness of both hands Surgical History H/O colonoscopy H/O neck surgery History of History of repair of rotator cuff Family History Father Medical history unknown Mother Medical history unknown Social History Household Members: Family Housing: House Are you a primary senior resident care director to a significant other at home: No Do you presently have visiting nurse or other home services: No Alcohol intake: current Alcohol intake frequency: holidays/special occasions only Patient Tobacco Use Status: Current everyday Tobacco user Tobacco use type: Cigarette Cigarettes Per Day: 10 e-Cigarette/Vaping Use: Never Used Second Hand Smoke Exposure: Yes service: No Current occupational status: disabled Gender identity: Female Cognitive needs: No Hearing needs: No Vision needs: No Review of Systems Musc Reports arthralgias, Reports joint swelling and Reports stiffness Physical Exam Vital Signs: Last Vital Signs Temp 98.1 F 09/11/22 09:48 Pulse 89 09/11/22 09:48 Resp 18 09/11/22 09:48 BP 130/84 09/11/22 09:48 Pulse Ox 99 09/11/22 09:48 Oxygen Delivery Method Room Air 09/11/22 09:48 BMI result Body Mass Index 48.9 Const General: cooperative, healthy appearing, comfortable and no acute distress Nutritional Appearance: obese morbidly obese Orientation/consciousness: patient oriented x3 Limitations: no limitations HEENT Head: Yes normocephalic and Yes atraumatic Resp Effort & Inspection: normal respiratory effort and able to speak in complete sentences Neuro General: patient oriented x3 Extrem Other: Bilateral wrist pain with full flexion and extension Bilateral 1st MCP swelling and tenderness Bilateral diffuse MCP puffiness Bilateral weak document scanner Left ankle swelling and tenderness Bilateral dorsal foot swelling and tenderness Negative MTP squeeze test bilaterally Left knee tenderness medially Assessment & Plan Assessment & Plan (1) Rheumatoid arthritis: Comment: seroneg 05/08 SSZ started 09/07 Code(s): M06.9 - Rheumatoid arthritis, unspecified Qualifiers: Rheumatoid arthritis location: multiple sites Rheumatoid factor presence: without rheumatoid factor Qualified Code(s): M06.09 - Rheumatoid arthritis without rheumatoid factor, multiple sites Plan: This is a 52-year-old female with seronegative rheumatoid arthritis presents for follow-up. Patient did not start methotrexate as instructed for fear of side effects. Continues to have diffuse active synovitis. We discussed other DMARDs for rheumatoid arthritis. Discussed risks and benefits of sulfasalazine Start sulfasalazine 500 mg 1 tab twice daily uptitrated to 2 tabs twice daily. Labs before next visit in 2 months Infectious screening: Hepatitis panel and T spot -ve 2022 Orders: Orders Complete Blood Count Auto Diff 2 Months M06.9 - Rheumatoid arthritis, unspecified Comprehensive Met. Panel 2 Months M06.9 - Rheumatoid arthritis, unspecified C Reactive Protein 2 Months M06.9 - Rheumatoid arthritis, unspecified Erythrocyte Sedimentation Rate 2 Months M06.9 - Rheumatoid arthritis, unspecified Medications: New prednisone Take 2 tabs once daily with breakfast for 1 week then 1 tab daily for 1 week then stop 21 tabs 1RF sulfasalazine Give with meal/snack Take 1 tab Twice daily for 1 week then 2 tabs in the morning and 1 tab at night for 1 week then 2 tabs Twice daily 240 tabs 0RF Coding Level of Care Code Est Pt Level 3 (22932) Diagnoses Rheumatoid arthritis M06.09 Rheumatoid arthritis location: multiple sites Rheumatoid factor presence: without rheumatoid factor
== END 2022-09-11 10:24 | disposition home or self-care (01) ==
PROVIDERS: PCP Internal Medicine; Visit Provider Student in an Organized Health Care Education/Training Program
DX: M06.09 Rheumatoid arthritis without rheumatoid factor, multiple sites (principal)
CPT/HCPCS: 99213

== ENCOUNTER → 2022-09-11 09:50 | Outpatient (BNVA) | payer OTHER, SELFPAY | PROVIDERS: PCP Internal Medicine; Visit Provider Student in an Organized Health Care Education/Training Program | DX: M06.09 Rheumatoid arthritis without rheumatoid factor, multiple sites (principal) | CPT/HCPCS: 99212 ==

== ENCOUNTER 2022-09-15 09:17 | Outpatient (AMB) | payer OTHER, SELFPAY ==
[2022-09-15 09:23] VITALS: BP 122/84; PULSE 96; O2SAT 94; BMI 47.8
--- NOTE | 2022-09-15 09:23 | A.OFFPC_ITS ---
Vital Signs 09/15/22 09:23 Height 5 ft 4 in Weight 278 lb 6 oz BMI 47.8 BP 122/84 Blood Pressure Location Lt brachial Position Sitting Pulse 96 Pulse Source Pulse Oximeter Pulse Oximetry (%) 94 Oxygen Delivery Method Room Air Intake Visit Reasons: 4m F/U Application Designer Required: No Accompanied by: Self / Same As Patient Allergies tramadol Allergy (Severe, Verified 09/15/22 09:42) n/v Penicillins [PENICILLINS] Allergy (Intermediate, Verified 09/15/22 09:42) HIVES Medication List - Last Reconciled 09/15/22 by Bunny Hdez MD brimonidine 0.2% 1 drp ophthalmic (eye) Q8H cetirizine (Zyrtec) 10 mg PO DAILY cholecalciferol (vitamin D3) 50 mcg PO DAILY 90 days fluocinonide 0.05% topical BID fluticasone propionate 110 mcg/actuation (Flovent HFA) 2 puffs inhalation BID 30 days folic acid 1 mg PO DAILY ibuprofen (Advil) 200 mg PO Q6H PRN ibuprofen-acetaminophen 125-250 mg (Advil Dual Action) 3 tabs PO ONCE PRN latanoprost 0.005% 1 drp ophthalmic (eye) QPM prednisone Take 2 tabs once daily with breakfast for 1 week then 1 tab daily for 1 week then stop sulfasalazine Give with meal/snack Take 1 tab Twice daily for 1 week then 2 tabs in the morning and 1 tab at night for 1 week then 2 tabs Twice daily Tobacco use date assessed: 09/15/22 Dental Screening Dental Screen Date: 09/15/22 Did you have a dental visit in the last 12 months?: Yes Did you have a dental problem in the last 6 months where you did not have access to dental care?: No Was dental information given to patient?: Patient has dentist HPI 4m F/U HPI Details Patient comes in today for her follow up visit States that she continues to experience diffuse joint pains, especially over her hips, knees and hands Was last seen by rheumatology for follow up a few days ago - has been diagnosed with seronegative RA and was previously prescribed Methotrexate, which patient did NOT take due to concerns about side effects States that her understanding is that this is a cancer medication and she does not see why she has to take this and put up with all of the potential side effects from cancer treatment that she has seen other cancer patients go through (including loss of appetite, nausea/vomiting and hair loss) States that she feels okay otherwise physically Denies any headaches or dizziness Denies any chest pains, no SOB No nausea/vomiting, no abdominal pain No change in bowel habits noted Had her follow up labs done last week - to discuss her results [facility] Medical History Arthralgia Asthma Bilateral hand pain Degenerative cervical spinal stenosis Dermatitis Fibromyalgia Hives Impaired fasting glucose Morbid obesity with body mass index (BMI) of 40.0 to 49.9 Numbness and tingling in left hand Obstructive sleep apnea REGINO on CPAP Pain and swelling of left upper extremity Polyarthritis Pure hypercholesterolemia Right shoulder pain Smoker Tubular adenoma Weakness of both hands Surgical History H/O colonoscopy H/O neck surgery History of History of repair of rotator cuff Family History Father Medical history unknown Mother Medical history unknown Social History Household Members: Family Housing: House Are you a primary property caretaker to a significant other at home: No Do you presently have visiting nurse or other home services: No Alcohol intake: current Alcohol intake frequency: holidays/special occasions only Patient Tobacco Use Status: Current everyday Tobacco user Tobacco use type: Cigarette Cigarettes Per Day: 10 e-Cigarette/Vaping Use: Never Used Second Hand Smoke Exposure: Yes service: No Current occupational status: disabled Gender identity: Female Cognitive needs: No Hearing needs: No Vision needs: No Questionnaire PHQ-9 Over the last 2 weeks, how often have you been bothered by any of the following problems? 1. Little interest or pleasure in doing things: several days 2. Feeling down, depressed, or hopeless: several days 3. Trouble falling or staying asleep, or sleeping too much: several days 4. Feeling tired or having little energy: several days 5. Poor appetite or overeating: not at all 6. Feeling bad about yourself - or that you are a failure or have let yourself or your family down: several days 7. Trouble concentrating on things, such as reading the newspaper or watching television: not at all 8. Moving or speaking so slowly that other people could have noticed. Or the opposite - being so fidgety or restless that you have been moving around a lot more than usual: not at all 9. Thoughts that you would be better off or of hurting yourself in some way: several days Total score: 6 Depression Screening Interpretation: Positive Depression Screening Follow-up: Existing condition and Community Mental Health Worker F/U 70550 - PHQ-9 Billing: Yes Source: Developed by Drs. Alberto Gaytan, Wendy Hernandez, Tonny Ward and colleagues, with an educational di from [employer]. Thrive Questionnaire Date Thrive assessed: 09/15/22 I am a: Patient What is your living situation today?: I have a steady place to live Within the past 12 months, did the food you bought not last and you didn't have the money to get more?: Never true Within the past 12 months, did you worry whether your food would run out before you got money to buy more?: Never true Do you have trouble paying for medicines?: No Do you have trouble getting transportation to medical appointments?: No Do you have trouble paying your heating and electricity bill?: No Do you have trouble taking care of your child, family member or friend?: No Do you have trouble with day-to-day activities such as bathing, preparing meals, shopping, managing finances, etc.?: No Are you currently unemployed and looking for a job?: No Are you interested in more education?: No Please select the resources that you would like help with: None Currently or been in a relationship where the following occur: no concerns reported AUDIT C Alcohol Use Questionnaire (AUDIT-C) 1. How often do you have a drink containing alcohol?: Never 3. How often do you have six or more drinks on one occasion?: Never Total Score: 0 Score Reviewed/Action Taken: Yes VIPUL-7 AMB Questionnaire VIPUL-7 Date VIPUL - 7 assessed: 09/15/22 Feeling nervous, anxious, or on edge: 0 = Not at all Not being able to stop or control worryin = More than half the days Worrying too much about different things: 0 = Not at all Trouble relaxin = Not at all Being so restless that it is hard to sit still: 1 = Several days Becoming easily annoyed or irritable: 3 = Nearly every day Feeling afraid as if something awful might happen: 0 = Not at all Total VIPUL-7 score (0-4 normal; 5-9 mild; 10-14 moderate; 15-21 severe): 6 Source: Developed by Drs. Alberto Gaytan, Wendy Hernandez, Tonny Ward and colleagues, with an educational di from [employer]. Review of Systems Const Reports difficulty sleeping, Reports fatigue, Denies fever(s) and Denies headache(s) ENT Denies dysphagia, Denies dizziness, Denies headache(s), Reports neck pain and Denies sore throat Card Denies chest pain, Denies palpitations and Denies dyspnea Resp Denies chest congestion, Denies cough, Denies dyspnea and Denies wheezing GI Denies abdominal pain, Denies constipation, Denies dysphagia, Denies heartburn, Denies diarrhea, Denies nausea and Denies vomiting Denies difficulty voiding, Denies nocturia and Denies dysuria Musc Details: worsening bilateral hand pain and weakness Reports back pain, Reports myalgias (diffuse), Reports arthralgias (over multiple joints; pain over both wrists and hands - better w prednisone), Reports neck pain and Reports stiffness (over multiple joints) Neuro Denies dizziness and Denies headache(s) Endo Reports fatigue and Denies palpitations Aller/Immun Denies wheezing Physical exam (Primary Care) Vital Signs: Last Vital Signs Pulse 96 09/15/22 09:23 BP 122/84 09/15/22 09:23 Pulse Ox 94 09/15/22 09:23 Oxygen Delivery Method Room Air 09/15/22 09:23 BMI result Body Mass Index 47.8 Tobacco/Smoking Status: Tobacco use Status Tobacco use date assessed 09/15/22 09/15/22 09:30 Patient Tobacco Use Status Current everyday Tobacco 09/15/22 09:30 Tobacco use type Cigarette 09/15/22 09:30 e-Cigarette/Vaping Use Never Used 09/15/22 09:30 PHQ-9: PHQ-9 Score PHQ-9: Total score 6 09/15/22 09:54 Depression Screening Interpretation: Positive Depression Screening Follow-up: Existing condition and Community Mental Health Worker F/U Thrive Assessment: Date of Thrive Assessment Date Thrive assessed 09/15/22 09/15/22 09:30 Currently or been in a relationship where the following occur: no concerns reported Const General: no acute distress and alert HENMT Ears: TM's normal bilaterally and EAC's normal Throat: Yes posterior oropharynx normal and Yes tonsils normal (no TP congestion noted) Neck Neck: Yes no lymphadenopathy and Yes supple Resp Auscultation: clear to auscultation bilaterally, no rales, no wheezes and diminished lung sounds (slightly) diffuse Cardio Rate: regular rate Rhythm: regular rhythm Heart sounds: no murmurs GI Palpation (GI): Soft to palpation and nontender Auscultation: normal bowel sounds Back/Spine/Pelvis Cervical Spine: Cervical spine tenderness Thoracic/Lumbar Spine: lumbar spinal tenderness Extrem General: Yes no clubbing, cyanosis or edema Right upper extremity: wrist Details: tenderness; no swelling Left upper extremity: wrist ((+) Phalen's test) Right lower extremity: hip/thigh Details: tenderness Location: of the hip and knee Details: tenderness Left lower extremity: hip/thigh Details: tenderness Location: of the hip and knee Details: tenderness Results Reviewed Results Reviewed: Laboratory Tests 12/25/21 09/05/22 09/08/22 10:40 14:31 12:25 WBC Hgb Hct Plt Count ESR 20 Sodium Potassium Creatinine Estimated GFR Fasting Glucose Hemoglobin A1c % Calcium AST ALT Triglycerides 81 Cholesterol 188 LDL Cholesterol, Calc 135 HDL Cholesterol 25-OH Vitamin D Total TSH Ur Specific [place] 1.025 Urine Protein Negative Urine Glucose (UA) Negative Urine Blood Moderate (2+) H 09/08/22 09/08/22 09/08/22 12:27 12:27 12:27 WBC 7.6 Hgb 14.0 Hct 43.4 Plt Count 210 ESR Sodium 143 Potassium 4.4 Creatinine 0.87 Estimated GFR > 60 Fasting Glucose 93 Hemoglobin A1c % 5.8 Calcium 9.4 AST 16 ALT 26 Triglycerides 223 Cholesterol 233 LDL Cholesterol, Calc 148 HDL Cholesterol 41 25-OH Vitamin D Total 36.6 TSH 1.61 Ur Specific [place] Urine Protein Urine Glucose (UA) Urine Blood Assessment and Plan Assessment & Plan (1) Pure hypercholesterolemia: Code(s): E78.00 - Pure hypercholesterolemia, unspecified Plan: Results of her labs done last week reviewed and discussed with patient - cautioned that her cholesterol levels are elevated (LDL remains high but her serum TG has increased significantly from last year) Reinforced low cholesterol diet Will recheck her labs and fasting lipids in 4 months for follow up (2) Impaired fasting glucose: Code(s): R73.01 - Impaired fasting glucose Plan: HgbA1c was borderline at 6.1% a few months ago but this has improved to 5.8% on her labs done last week Reinforced low calorie/low carb diet Advised again that exercise and losing weight can also help but she repeated that it is impossible for her to do any exercise given her current conditions Will recheck her FBS and HgbA1c in 4 months for follow up (3) Asthma: Code(s): J45.909 - Unspecified asthma, uncomplicated Qualifiers: Asthma complication type: uncomplicated Asthma persistence: intermittent Asthma severity: mild Qualified Code(s): J45.20 - Mild intermittent asthma, uncomplicated Plan: Appears stable and better controlled lately Continue Flovent HFA 110 mcg 2 inhalations BID, Montelukast 10 mg QD and Albuterol HFA 2 inhalations every 6 hours as needed (4) Fibromyalgia: Code(s): M79.7 - Fibromyalgia Plan: Encouraged again to continue with regular exercise and physical activity (as tolerated) to help manage her fibromyalgia symptoms better Was on Pregabalin 150 mg TID for a few months but states that it has not helped Was also seen by rheumatology (Dr. Lucero) last year and no additional recommendations were provided Is now seeing [facility] and was recently worked up for inflammatory arthritis; was advised that she has seronegative rheumatoid arthritis and was recommended to start Tx with Methotrexate but she declined due to fear of side effects Was instead given Rx for Sulfasalazine a few days ago, which she is still debating on whether to take or not Follow up with rheumatology as scheduled (5) Polyarthritis: Code(s): M13.0 - Polyarthritis, unspecified Plan: Follow up with [facility] and with [facility] rheumatology as scheduled Has received joint injections in the past but patient states that they did not help much Has been advised by orthopedics that they will only consider scheduling her for joint replacement surgery if she can lose weight and get her BMI down to at least <45 - patient reports that she can hardly do any activity or exercise and is not optimistic that she can lose any significant amount of weight Was seen by [facility] Pain Management a few months and instructed to increase her Duloxetine to 60 mg a day but patient STOPPED taking the Rx after she had trouble sleeping at night when she went up on her dose; has not followed up with pain management since as she does not think that they have anything else to offer her that she would agree to at this time Was recently diagnosed with RA and is being treated/managed now by rheumatology (6) Chronic hip pain, bilateral: Code(s): M25.551 - Pain in right hip; M25.552 - Pain in left hip; G89.29 - Other chronic pain Plan: MRI of the hips done back in 2012 revealed minimal degenerative arthritis in the left hip and mild degenerative arthritis in the right hip Per request, was sent for repeat MRI of the hips for further evaluation of her increasing bilateral hip pain but this was denied by insurance Follow up with [facility] as scheduled (7) Degenerative cervical spinal stenosis: Comment: S/P anterior discectomy Code(s): M48.02 - Spinal stenosis, cervical region Plan: Patient reports (+) improvement of pain in her left wrist but still has weakness and on and off pain radiating down her left arm at times Follow up with neurosurgery as scheduled (8) Vitamin D deficiency: Code(s): E55.9 - Vitamin D deficiency, unspecified Plan: Continue Vitamin D3 2000 units QD (9) Obstructive sleep apnea: Code(s): G47.33 - Obstructive sleep apnea (adult) (pediatric) Plan: Follow up with sleep medicine as scheduled Was scheduled for a repeat study at [facility] in December 2021 but states that she was recently advised by sleep specialist that it is not worth doing as it is not going to provide any additional useful information at this time Am not sure what other recommendations they have for her at this time as I do not have any records of her OV notes with them to go over (10) Smoker: Code(s): F17.200 - Nicotine dependence, unspecified, uncomplicated Plan: Counseled again on smoking cessation (11) Morbid obesity with body mass index (BMI) of 40.0 to 49.9: Code(s): E66.01 - Morbid (severe) obesity due to excess calories Plan: Reinforced diet/exercise as tolerated/lose weight but patient states that exercise is unrealistic given her current multiple conditions Plan Follow up in 4 months Orders: Orders Comprehensive [place]. Panel Fast 4 Months E78.00 - Pure hypercholesterolemia, unspecified Lipid Panel 4 Months E78.00 - Pure hypercholesterolemia, unspecified TSH reflex Free T4 4 Months E78.00 - Pure hypercholesterolemia, unspecified Vitamin D 25-OH Total 4 Months E55.9 - Vitamin D deficiency, unspecified Hemoglobin A1c 4 Months R73.01 - Impaired fasting glucose Complete Blood Count Auto Diff 4 Months I10 - Essential (primary) hypertension UA CC w/rflx Micro + Cult 4 Months R30.0 - Dysuria Coding Level of Care Code Est Pt Level 4 (66972) Diagnoses Pure hypercholesterolemia E78.00 Impaired fasting glucose R73.01 Asthma J45.20 Asthma complication type: uncomplicated Asthma persistence: intermittent Asthma severity: mild Fibromyalgia M79.7 Polyarthritis M13.0 Chronic hip pain, bilateral M25.551; M25.552; G89.29 Degenerative cervical spinal stenosis M48.02 Vitamin D deficiency E55.9 Obstructive sleep apnea G47.33 Smoker F17.200 Morbid obesity with body mass index (BMI) of 40.0 to 49.9 E66.01
== END 2022-09-15 10:00 | disposition home or self-care (01) ==
PROVIDERS: PCP Internal Medicine; Visit Provider Internal Medicine
DX: E78.00 Pure hypercholesterolemia, unspecified (principal); R73.01 Impaired fasting glucose; J45.20 Mild intermittent asthma, uncomplicated; M79.7 Fibromyalgia; M13.0 Polyarthritis, unspecified; M25.551 Pain in right hip; M25.552 Pain in left hip; G89.29 Other chronic pain; M48.02 Spinal stenosis, cervical region; E55.9 Vitamin D deficiency, unspecified; G47.33 Obstructive sleep apnea (adult) (pediatric); F17.200 Nicotine dependence, unspecified, uncomplicated
CPT/HCPCS: 99214

== ENCOUNTER 2022-10-08 13:02 | Outpatient (AMB) | payer OTHER, SELFPAY ==
--- NOTE | 2022-10-08 13:06 | A.OFFVIS_ITS ---
Intake Vital Signs 10/08/22 13:07 Height 5 ft 4 in Weight 285 lb BMI 48.9 BP 122/86 Intake Visit Reasons: Annual Intake Note: The patient agreed to use of a chief medical officer during this encounter. Scribed for KULWANT Lockhart by Bertha Hdez chief medical officer, on 10/08/2022 at 1:26 pm EST. Manager Pricing: Manager Pricing Present (Gwendolyn) Allergies tramadol Allergy (Severe, Verified 10/08/22 13:07) n/v Penicillins [PENICILLINS] Allergy (Intermediate, Verified 10/08/22 13:07) HIVES HPI HPI Comments History of Present Illness Details She is a postmenopausal woman presenting for annual exam. Complains of hot flashes but has hx of sweating and is unsure if it is due to menopause. Concerns about weight fluctuations. Patient admits she tries to eat a healthy diet including Calcium and Vitamin D. She does not stay active with exercise due to living environment/neighborhood. Currently not sexually active. Reports being on Depo up to 2 years ago and hasn't had her menses since. Reports a vulva sore that is like a bubble. Denies vaginal itching and irritation. Denies family hx of breast, colon and ovarian cancer. Last pap smear 12/05/18. Last mammogram 03/12/22. UTD on colonoscopy. [facility] Medical History Arthralgia Asthma Bilateral hand pain Degenerative cervical spinal stenosis Dermatitis Fibromyalgia Hives Hot flashes Impaired fasting glucose Morbid obesity with body mass index (BMI) of 40.0 to 49.9 Numbness and tingling in left hand Obstructive sleep apnea REGINO on CPAP Pain and swelling of left upper extremity Polyarthritis Pure hypercholesterolemia Right shoulder pain Smoker Tubular adenoma Weakness of both hands Surgical History H/O colonoscopy H/O neck surgery History of History of repair of rotator cuff Family History Father Medical history unknown Mother Medical history unknown Paternal Grandfather Diabetes FH: HTN (hypertension) Social History Household Members: Family Housing: House Are you a primary nurse behavioral health care to a significant other at home: No Do you presently have visiting nurse or other home services: No Alcohol intake: current Alcohol intake frequency: holidays/special occasions only Patient Tobacco Use Status: Current everyday Tobacco user Tobacco use type: Cigarette Cigarettes Per Day: 10 e-Cigarette/Vaping Use: Never Used Second Hand Smoke Exposure: Yes service: No Current occupational status: disabled Gender identity: Female Cognitive needs: No Hearing needs: No Vision needs: No Female Reproductive History Menstrual Total pregnancies: 2 Number of Living Children: 0 Ab induced: 2 Date of last pap smear: 12/05/18 (neg pap and hpv) Date of Mammogram: 03/12/22 (Birad 1) Physical Exam Vital Signs: Last Vital Signs BP 122/86 10/08/22 13:07 BMI result Body Mass Index 48.9 Const General: cooperative, healthy appearing, no acute distress, well developed and alert Orientation/consciousness: patient oriented x3 HEENT Head: Yes normal to inspection Eyes General: appearance normal, both eyes and all related structures Neck Neck: Yes normal visual inspection Thyroid: Thyroid normal Chest Chest palpation & inspection: normal inspection of the chest Breast/axilla inspection: normal inspection of the breasts (no puckering, dimpling, peau de orange, retraction, discharge, masses) Breast/axilla palpation: normal palpation of the breasts Resp Effort & Inspection: normal respiratory effort GI Inspection: Yes normal to inspection and Yes obesity Palpation (GI): Soft to palpation (to palpation) Rectal Exam - Female: deferred Other: limited exam due to body habitus no vulvar lesions noted or visualized General: Yes bladder normal to inspection External Female Exam: normal external appearance and normal appearance of the urethra Speculum Exam - Vagina: normal appearance of the vagina, normal palpation and normal vaginal discharge Speculum Exam - Cervix: normal appearance of the cervix and normal palpation Bimanual exam- vagina & uterus: normal palpation and normal palpation Bimanual Exam- Adnexa, other: normal adnexae and no masses Skin General skin exam: no rashes or lesions noted Neuro General: patient oriented x3 Cognition (Neuro): normal cognition Extrem General: Yes normal to inspection Psych Attitude: cooperative Thought process: Normal thought process present Assessment & Plan Assessment & Plan (1) Encounter for well woman exam: Code(s): Z01.419 - Encounter for gynecological examination (general) (routine) without abnormal findings Plan: Discussed: Current recommendations for pap smears per ASCCP guidelines. Breast awareness and periodic self breast exams. Encouraged yearly mammograms. Maintaining a healthy lifestyle including a well balanced diet including Calcium and Vitamin D, limit salt intake and routine exercise such as yoga or at home work outs. Contact office with any PMB. All of her questions and concerns were addressed to the best of my ability RTO in 1 year for AG. (2) Hot flashes: Code(s): R23.2 - Flushing Plan: Counseled on hot flashes. Avoid spicy foods and alcohol. Wear light, layered clothing. Sleep with fan on. Can also try a cooling pillow or mattress. Stay well hydrated. (3) Morbid obesity with body mass index (BMI) of 40.0 to 49.9: Code(s): E66.01 - Morbid (severe) obesity due to excess calories Plan: Informed weight can vary depending on the time of day and prednisone can lead to weight gain, and retaining water. Follow up with PCP regarding weight concerns. Coding Level of Care Code Est Pt Prev Care 40-64y(64820) Diagnoses Encounter for well woman exam Z01.419 Hot flashes R23.2 Morbid obesity with body mass index (BMI) of 40.0 to 49.9 E66.01
[2022-10-08 13:07] VITALS: BP 122/86; BMI 48.9
== END 2022-10-08 13:50 | disposition home or self-care (01) ==
LOC: HO.HWS 13:02
PROVIDERS: PCP Internal Medicine; Visit Provider Advanced Practice Midwife
DX: Z01.419 Encounter for gynecological examination (general) (routine) without abnormal findings (principal); R23.2 Flushing; E66.01 Morbid (severe) obesity due to excess calories
CPT/HCPCS: 99396

== ENCOUNTER → 2022-10-08 13:02 | Outpatient (BNVA) | payer OTHER, SELFPAY | PROVIDERS: PCP Internal Medicine; Visit Provider Advanced Practice Midwife ==

== ENCOUNTER 2022-10-31 12:00 | Outpatient (REF) | payer OTHER, SELFPAY ==
[2022-10-31 12:21] LABS: MANUAL DIFF FLAG NO
[2022-10-31 13:06] LABS: Basophils Absolute Auto 0.1 X10*3/uL (0.0-0.2); Basophils Percent Auto 0.8 % (0-2); Eosinophils Absolute Auto 0.2 X10*3/uL (0.0-0.4); Eosinophils Percent Auto 2.2 % (0-4); Hematocrit 42.8 % (37.0-47.0); Hemoglobin 14.1 g/dl (12.0-16.0); Imm Gran Abs Auto 0.02 X10*3/uL (0.00-0.03); Imm Gran Pct Auto 0.3 % (0.0-0.4); Lymphocytes Absolute Auto 2.7 X10*3/uL (1.2-4.9); Mean Corpuscular HGB Conc 32.9 g/dl (31.0-35.0); Mean Corpuscular Hemoglobin 29.8 pg (27.0-33.0); Mean Corpuscular Volume 90.5 fL (80.0-98.0); Mean Platelet Volume 11.3 fL (9.4-12.3); Monocytes Absolute Auto 0.8 X10*3/uL (0.1-1.2); Monocytes Percent Auto 10.9 % (2-11); Neutrophils Absolute Auto 3.9 x10*3/uL (2.0-8.3); Neutrophils Percent Auto 50.8 % (45-73); Platelet Count 223 X10*3/uL (160-400); Red Blood Count 4.73 X10*6/uL (4.20-5.50); Red Cell Distribution Width 16.1 % (11.0-16.0); White Blood Count 7.6 X10*3/uL (4.8-10.8)
[2022-10-31 13:58] LABS: Erythrocyte Sedimentation Rate 18 MM/HR (0-20)
[2022-10-31 15:23] LABS: Alanine Aminotransferase 11 U/L (0-31); Alkaline Phosphatase 68 U/L (39-117); Anion Gap 14 (12-20); Aspartate Amino Transferase 12 U/L (5-31); Bilirubin Total 0.2 mg/dL (0.0-1.0); Blood Urea Nitrogen 14 mg/dL (9-16); C Reactive Protein 0.62 mg/dL (< or = 0.50); Calcium 9.2 mg/dL (8.4-10.2); Carbon Dioxide 25 mmol/L (22-29); Chloride 107 mmol/L (96-108); Estimated Glomerular Filt Rate 54; Glucose Random 100 mg/dL (60-115); Potassium 4.5 mmol/L (3.3-5.1); Sodium 141 mmol/L (135-145); Total Protein 6.7 g/dL (6.5-8.0)
== END 2022-10-31 12:01 | disposition home or self-care (01) ==
LOC: HO.LAB 12:00
PROVIDERS: PCP Internal Medicine; Visit Provider Student in an Organized Health Care Education/Training Program
DX: M06.9 Rheumatoid arthritis, unspecified (principal)
CPT/HCPCS: 36415; 80053; 85025; 85652; 86140

== ENCOUNTER 2022-11-04 11:34 | Outpatient (AMB) | payer OTHER, SELFPAY ==
[2022-11-04 11:37] VITALS: BP 128/72; PULSE 91; TEMP 36.3; O2SAT 96; BMI 48.4
--- NOTE | 2022-11-04 11:37 | A.OFFVIS_ITS ---
Intake Vital Signs 11/04/22 11:37 Height 5 ft 4 in Weight 282 lb 3.067 oz BMI 48.4 BP 128/72 Blood Pressure Location Rt brachial Position Sitting Pulse 91 Pulse Source Pulse Oximeter Temp 97.3 F Temp Source Skin Pulse Oximetry (%) 96 Intake Visit Reasons: RA Intake Note: Pt seen today for RA follow up. C/o bl knee pain, worse with stairs. Jalousies Installer Required: No Accompanied by: Self / Same As Patient Allergies tramadol Allergy (Severe, Verified 11/04/22 11:40) n/v Penicillins [PENICILLINS] Allergy (Intermediate, Verified 11/04/22 11:40) HIVES Medication List - Last Reconciled 11/04/22 by Phil Peters MD albuterol sulfate 90 mcg/actuation (Ventolin HFA) inhalation brimonidine 0.2% 1 drp ophthalmic (eye) Q8H cetirizine (Zyrtec) 10 mg PO DAILY cholecalciferol (vitamin D3) 50 mcg PO DAILY 90 days fluocinonide 0.05% topical BID fluticasone propionate 110 mcg/actuation (Flovent HFA) 2 puffs inhalation BID 30 days folic acid 1 mg PO DAILY ibuprofen (Advil) 200 mg PO Q6H PRN ibuprofen-acetaminophen 125-250 mg (Advil Dual Action) 3 tabs PO ONCE PRN latanoprost 0.005% 1 drp ophthalmic (eye) QPM netarsudil 0.02% (Rhopressa) 1 drp ophthalmic (eye) BEDTIME prednisone Take 2 tabs once daily with breakfast for 1 week then 1 tab daily for 1 week then stop sulfasalazine 1 g (2 x 500 mg) PO BID HPI HPI Comments History of Present Illness Details 52-year-old female with seronegative rhe umatoid arthritis returns for follow-up. She is on sulfasalazine 1000 mg Twice daily. She took prednisone for 2 weeks. Patient states that she feels about the same. Continues to have pain in her wrists, knees. States that prednisone gives her about 80% relief. Initial history: This is a 52-year-old morbidly obese female with a past medical history of asthma, anxiety, fibromyalgia, REGINO, degenerative disc disease cervical spine presents for evaluation of bilateral hand pain and swelling. Per patient the condition started a little over a year ago with bilateral hands, wrist swelling and pain, associated with morning stiffness lasting 30 minutes. Patient would have difficulty grabbing objects. Recently been having left ankle swelling without pain. Patient states that adult dual action will provide some relief. She stated she had hives do weeks ago resolved with Zyrtec. She denies any history suggestive of Raynaud's. She continues to smoke. No history of DVT/PE. [facility] History Hot flashes Pure hypercholesterolemia Impaired fasting glucose Numbness and tingling in left hand Obstructive sleep apnea Polyarthritis Degenerative cervical spinal stenosis Morbid obesity with body mass index (BMI) of 40.0 to 49.9 Right shoulder pain Pain and swelling of left upper extremity Dermatitis Tubular adenoma REGINO on CPAP Hives Smoker Asthma Fibromyalgia Bilateral hand pain Weakness of both hands Arthralgia Surgical History H/O neck surgery H/O colonoscopy History of History of repair of rotator cuff Family History Father Medical history unknown Mother Medical history unknown Paternal Grandfather Diabetes FH: HTN (hypertension) Social History Household Members: Family Housing: House Are you a primary career placement specialist to a significant other at home: No Do you presently have visiting nurse or other home services: No Alcohol intake: current Alcohol intake frequency: holidays/special occasions only Patient Tobacco Use Status: Current everyday Tobacco user Tobacco use type: Cigarette Cigarettes Per Day: 10 e-Cigarette/Vaping Use: Never Used Second Hand Smoke Exposure: Yes service: No Current occupational status: disabled Gender identity: Female Cognitive needs: No Hearing needs: No Vision needs: No Review of Systems Musc Reports arthralgias, Reports joint swelling and Reports stiffness Physical Exam Vital Signs: Last Vital Signs Temp 97.3 F 11/04/22 11:37 Pulse 91 11/04/22 11:37 BP 128/72 11/04/22 11:37 Pulse Ox 96 11/04/22 11:37 BMI result Body Mass Index 48.4 Const General: cooperative, healthy appearing, comfortable and no acute distress Nutritional Appearance: obese morbidly obese Orientation/consciousness: patient oriented x3 Limitations: no limitations HEENT Head: Yes normocephalic and Yes atraumatic Resp Effort & Inspection: normal respiratory effort and able to speak in complete sentences Neuro General: patient oriented x3 Extrem Other: Bilateral wrist pain with full flexion and extension Negative MCP squeeze test bilateral Bilateral diffuse MCP puffiness Mildly reduced left manager orange strength No ankle swelling or tenderness today Negative MTP squeeze test bilaterally Left knee tenderness medially Assessment & Plan Assessment & Plan (1) Rheumatoid arthritis: Comment: seroneg 05/08 SSZ started 09/07 incomplete response Code(s): M06.9 - Rheumatoid arthritis, unspecified Qualifiers: Rheumatoid arthritis location: multiple sites Rheumatoid factor presence: without rheumatoid factor Qualified Code(s): M06.09 - Rheumatoid arthritis without rheumatoid factor, multiple sites Plan: This is a 52-year-old female with seronegative rheumatoid arthritis presents for follow-up. She is on sulfasalazine 1000 mg Twice daily. She has incomplete response to sulfasalazine. Patient previously refused to take methotrexate for fear of side effects. Today I discussed risks and benefits of TNF inhibitors. Patient agreed to proceed. Will start prior authorization for Enbrel. Continue sulfasalazine 1000 mg bid. Labs before next visit in 10 weeks Infectious screening: Hepatitis panel and T spot -ve 2022 (2) On sulfasalazine therapy: Code(s): Z79.899 - Other correction (current) drug therapy Plan: Monitor safety labs for sulfasalazine Side effects of Enbrel were discussed with the patient in detail including increased risk of infection, demyelinating disease, reactivation of latent TB, possible increased risk of solid and skin tumors. Patient fully aware. Advised patient to seek medical care DANIELA if patient has an infection and advised patient to stop the medication until the infection is resolved. Plan I spent 26 minutes reviewing patient's chart, evaluating patient, ordering diagnostic workup, counseling patient and documenting in the chart Coding Level of Care Code Est Pt Level 4 (80317) Diagnoses Rheumatoid arthritis of multiple sites with negative rheumatoid factor M06.09 Rheumatoid arthritis location: multiple sites Rheumatoid factor presence: without rheumatoid factor On sulfasalazine therapy Z79.899
== END 2022-11-04 12:16 | disposition home or self-care (01) ==
PROVIDERS: PCP Internal Medicine; Visit Provider Student in an Organized Health Care Education/Training Program
DX: M06.09 Rheumatoid arthritis without rheumatoid factor, multiple sites (principal); Z79.899 Other long term (current) drug therapy
CPT/HCPCS: 99214

== ENCOUNTER → 2022-11-04 11:34 | Outpatient (BNVA) | payer OTHER, SELFPAY | PROVIDERS: PCP Internal Medicine; Visit Provider Student in an Organized Health Care Education/Training Program | DX: M06.09 Rheumatoid arthritis without rheumatoid factor, multiple sites (principal); Z79.899 Other long term (current) drug therapy | CPT/HCPCS: 99212 ==

== ENCOUNTER 2022-12-08 15:52 | Outpatient (AMB) | payer OTHER, SELFPAY ==
--- NOTE | 2022-12-08 15:54 | A.OFFVIS_ITS ---
Intake Vital Signs 12/08/22 16:08 Height 5 ft 4 in Weight 284 lb 2 oz BMI 48.8 BP 150/66 H Blood Pressure Location Lt brachial Position Sitting Pulse 105 H Pulse Source Pulse Oximeter Pulse Oximetry (%) 95 Oxygen Delivery Method Room Air Intake Visit Reasons: Severe left knee pain Allergies tramadol Allergy (Severe, Verified 12/08/22 16:07) n/v Penicillins [PENICILLINS] Allergy (Intermediate, Verified 12/08/22 16:07) HIVES Medication List - Last Reconciled 12/08/22 by Bety Brand RN albuterol sulfate 90 mcg/actuation (Ventolin HFA) inhalation brimonidine 0.2% 1 drp ophthalmic (eye) Q8H cetirizine (Zyrtec) 10 mg PO DAILY cholecalciferol (vitamin D3) 50 mcg PO DAILY 90 days etanercept (Enbrel SureClick) 50 mg subcut QWEEK fluticasone propionate 110 mcg/actuation (Flovent HFA) 2 puffs inhalation BID 30 days folic acid 1 mg PO DAILY ibuprofen (Advil) 200 mg PO Q6H PRN ibuprofen-acetaminophen 125-250 mg (Advil Dual Action) 3 tabs PO ONCE PRN latanoprost 0.005% 1 drp ophthalmic (eye) QPM netarsudil 0.02% (Rhopressa) 1 drp ophthalmic (eye) BEDTIME sulfasalazine 1 g (2 x 500 mg) PO BID HPI HPI Comments History of Present Illness Details Sonia is in my office today complaining mostly on the pain on the inner portion of the left knee. She suffers from OA and RA and she is under care of fire sprinkler service technician who started her on Enbrel. Long time ago she had x-ray of the left knee however not recently. In the order to proceed for for the treatment of her knee pain I need to perform knee x-ray for her. Will schedule her for these study DANIELA. I will see her in 10 days to evaluate the pathology in the knee. We discussed today possibility of treating her knee pain with genicular nerve block and or infrapatellar saphenous nerve block diagnostic both. We could make a decision on whether her on not radiofrequency ablation versus peripheral nerve stimulation of the genicular nerves is the right thing to do for the patient. X-ray of the knee could be instrumental in this decision. PRIOR: Sonia returns to discuss the worsening of her overall pain especially in her bilateral knees. Since the last visit she underwent anterior cervical discectomy with fusion of C5-C6 with Dr. Cross and had complete alleviation of her left radiating shoulder pain. PRIOR: Sonia is a pleasant 50 year old female who presents to the office with complaints of left arm/shoulder pain. She states the pain started at the end of April without any inciting events. She notes having this same pain about a year ago which resolved spontaneously. She reports the pain starts in the left neck and radiates towards her shoulder with associated numbness and tingling throughout her entire arm and hands. She has been referred here by orthopedic, as they ruled out shoulder pathology. She was sent for imaging and given a cortisone injection of the shoulder with no improvement in her pain. She has also had an EMG which did not reveal anything significant, ruling out nerve impingement and CTS. She also received the J&J COVID vaccine 05/23/20, so she was sent for an US of the LUE to rule out any clots, which was negative. She reports pain onset was sudden, constant and rates the pain a 10/10. She states the pain is interfering with sleep, activities of daily living and she cannot function normally. Her pain is exacerbated by activity, weather changes but can be present at rest.he patient reports the pain in terms of tissue damage as pulsing, throbbing, shooting, stabbing, sharp, wrenching, burning as well as tingling, heavy, tiring and radiating. She has tried lidocaine patches, tylenol and advil with minimal improvement in her pain. She has had some alleviation in her pain with heat application. Previously she has tried physical therapy but not recently. She is not interested as she has not benefited in the past.? Denies any chiropractic manipulation, massage or acupuncture. She notes having bilateral arthroscopic shoulder surgery over ten years ago. [facility] Medical History Hot flashes Pure hypercholesterolemia Impaired fasting glucose Numbness and tingling in left hand Obstructive sleep apnea Polyarthritis Degenerative cervical spinal stenosis Morbid obesity with body mass index (BMI) of 40.0 to 49.9 Right shoulder pain Pain and swelling of left upper extremity Dermatitis Tubular adenoma REGINO on CPAP Hives Smoker Asthma Fibromyalgia Bilateral hand pain Weakness of both hands Arthralgia Surgical History H/O neck surgery H/O colonoscopy History of History of repair of rotator cuff Family History Father Medical history unknown Mother Medical history unknown Paternal Grandfather Diabetes FH: HTN (hypertension) Social History Household Members: Family Housing: House Are you a primary home health care worker to a significant other at home: No Do you presently have visiting nurse or other home services: No Alcohol intake: current Alcohol intake frequency: holidays/special occasions only Patient Tobacco Use Status: Current everyday Tobacco user Tobacco use type: Cigarette Cigarettes Per Day: 10 e-Cigarette/Vaping Use: Never Used Second Hand Smoke Exposure: Yes service: No Current occupational status: disabled Gender identity: Female Cognitive needs: No Hearing needs: No Vision needs: No Review of Systems Const All systems reviewed & are unremarkable except as noted in HPI and below Eyes Denies photophobia ENT Reports Normal hearing present Neuro Reports Normal hearing present Physical Exam Vital Signs: Last Vital Signs Pulse 105 H 12/08/22 16:08 BP 150/66 H 12/08/22 16:08 Pulse Ox 95 12/08/22 16:08 Oxygen Delivery Method Room Air 12/08/22 16:08 BMI result Body Mass Index 48.8 Const General: cooperative, healthy appearing, no acute distress and alert Orientation/consciousness: patient oriented x3 Limitations: No ambulation with cane, No ambulation with walker and No wheelchair HEENT Head: Yes normal to inspection, Yes normocephalic and Yes atraumatic Ears: hearing grossly normal bilaterally Eyes General: appearance normal, both eyes and all related structures Eyelids: Yes eyelids normal Sclerae: sclerae normal Pupils: Equal, round and reactive pupils present EOM: EOMs intact bilaterally Direct Ophthalmoscopy: No photophobia Neck Neck: Yes normal visual inspection, Yes full ROM, Yes trachea midline and Yes no JVD Chest Chest palpation & inspection: normal inspection of the chest Resp Effort & Inspection: normal respiratory effort, able to speak in complete sentences and no audible wheezes Cardio Jugular venous distension: no JVD Palpation: other (no appreciable rhythmic abnormalities) Peripheral pulses: radial pulses present (no palpable rhythmic abnormalities detected) bilateral and other Back/Spine/Pelvis Other: Patient with normal cervical ROM but reports moderate discomfort with movement, especially lateral rotation. Spurling compression test positive. Pain is unaffected by Spurling manuever with retraction. Elvey's tension test positive on left with radiation of pain from neck to wrist. Lhermitte's test negative. Patient demonstrated 4/5 motor strength of bilateral upper extremities. 2+ radial pulses. DTR symmetrical. Multiple tender points throughout left upper trapezius muscle. Sensation intact. Cervical Spine: cervical ROM normal, pain with cervical ROM and Cervical spine tenderness Neuro General: patient oriented x3, gait normal, moves all extremities and Normal light touch and pain sensation Cranial nerves: Yes Equal, round and reactive pupils present and Yes Normal hearing present Cognition (Neuro): normal cognition Gait exam (Neuro): Normal gait present Extrem General: Yes normal to inspection, Yes full ROM and Yes no pedal edema Assessment & Plan Assessment & Plan (1) Bilateral knee pain: Code(s): M25.561 - Pain in right knee; M25.562 - Pain in left knee (2) Polyarthralgia: Comment: multiple joints Code(s): M25.50 - Pain in unspecified joint (3) Fibromyalgia: Code(s): M79.7 - Fibromyalgia (4) Bilateral wrist pain: Code(s): M25.531 - Pain in right wrist; M25.532 - Pain in left wrist (5) Arthritis of left knee: Code(s): M17.12 - Unilateral primary osteoarthritis, left knee (6) Left knee pain: Code(s): M25.562 - Pain in left knee Plan I will schedule this patient for x-ray of the left knee and I will evaluate her and make a conclusion in 10 days. If there is significant osteoarthritis on the knee we can offer her genicular nerve block versus infrapatellar saphenous nerve block to prepare her for potentially RFA of the knee versus PNS of the knee infrapatellar saphenous position his freedom/cure on X. Next appointment in 10 days. Orders: Orders XR knee LT 4V Today M17.12 - Unilateral primary osteoarthritis, left knee, M25.562 - Pain in left knee Coding Level of Care Code Est Pt Level 4 (30772) Diagnoses Bilateral knee pain M25.561; M25.562 Polyarthralgia M25.50 Fibromyalgia M79.7 Bilateral wrist pain M25.531; M25.532 Arthritis of left knee M17.12 Left knee pain M25.562
[2022-12-08 16:08] VITALS: BP 150/66; PULSE 105; O2SAT 95; BMI 48.8
== END 2022-12-08 17:18 | disposition home or self-care (01) ==
PROVIDERS: PCP Internal Medicine; Visit Provider Anesthesiology
DX: M25.561 Pain in right knee (principal); M25.562 Pain in left knee; M25.50 Pain in unspecified joint; M79.7 Fibromyalgia; M25.531 Pain in right wrist; M25.532 Pain in left wrist; M17.12 Unilateral primary osteoarthritis, left knee
CPT/HCPCS: 99213

== ENCOUNTER → 2022-12-08 15:52 | Outpatient (BNVA) | payer OTHER, SELFPAY | PROVIDERS: PCP Internal Medicine; Visit Provider Anesthesiology | DX: M25.561 Pain in right knee (principal); M25.562 Pain in left knee; M25.50 Pain in unspecified joint; M79.7 Fibromyalgia; M25.531 Pain in right wrist; M25.532 Pain in left wrist; M17.12 Unilateral primary osteoarthritis, left knee | CPT/HCPCS: 99212 ==

== ENCOUNTER 2022-12-10 10:55 | Outpatient (REF) | payer OTHER, SELFPAY ==
--- NOTE | ~2022-12-10 | XR_ITS ---
EXAMINATION: XR KNEE, LEFT CLINICAL INFORMATION: Pain. COMPARISON: Radiographs dated 02/21/2021. TECHNIQUE: AP, lateral, tunnel, and sunrise views of the left knee. FINDINGS: No fracture or joint effusion. Alignment is anatomic. Joint spaces are maintained. No abnormal soft tissue calcification. XR/XR knee LT 4V IMPRESSION: Normal left knee.
== END 2022-12-10 10:56 | disposition home or self-care (01) ==
LOC: HO.XRAY 10:55
PROVIDERS: Visit Provider Anesthesiology
DX: M17.12 Unilateral primary osteoarthritis, left knee (principal)
CPT/HCPCS: 73564

== ENCOUNTER 2022-12-18 09:53 | Outpatient (AMB) | payer OTHER, SELFPAY ==
--- NOTE | 2022-12-18 10:08 | MHC.OFFVIS ---
Intake Vital Signs 12/18/22 10:14 Height 5 ft 4 in Weight 282 lb BMI 48.4 BP 130/80 Blood Pressure Location Lt brachial Position Sitting Respiration 16 Pulse 95 Pulse Source Pulse Oximeter Pulse Oximetry (%) 97 Oxygen Delivery Method Room Air Intake Visit Reasons: Xray Review/ CONFIRMED Intake Note: patient comes in for xray results. Allergies tramadol Allergy (Severe, Verified 12/18/22 10:15) n/v Penicillins [PENICILLINS] Allergy (Intermediate, Verified 12/18/22 10:15) HIVES HPI HPI Comments History of Present Illness Details Sonia is in my office today complaining mostly on the pain on the inner portion of the left knee. She suffers from OA and RA and she is under care of delimer who started her on Enbrel. She was sent for the knee x-ray and results of the knee x-ray were normal. However she reports severe pain in the left knee. Most likely it is result of the rheumatoid arthritis which did not yet progressed enough to the damage of the bones of her knee. Nevertheless she experiences severe pain and there is objective severe tenderness on palpation in un tear medial portion of the left knee. I offered her infrapatellar saphenous nerve block to make a decision whether any manipulation with infrapatellar saphenous nerve would result in any improvement. Genicular nerve block also can be considered in the future if infrapatellar saphenous nerve resulted in no improvement. PRIOR: Sonia returns to discuss the worsening of her overall pain especially in her bilateral knees. Since the last visit she underwent anterior cervical discectomy with fusion of C5-C6 with Dr. Cross and had complete alleviation of her left radiating shoulder pain. PRIOR: Sonia is a pleasant 50 year old female who presents to the office with complaints of left arm/shoulder pain. She states the pain started at the end of April without any inciting events. She notes having this same pain about a year ago which resolved spontaneously. She reports the pain starts in the left neck and radiates towards her shoulder with associated numbness and tingling throughout her entire arm and hands. She has been referred here by orthopedic, as they ruled out shoulder pathology. She was sent for imaging and given a cortisone injection of the shoulder with no improvement in her pain. She has also had an EMG which did not reveal anything significant, ruling out nerve impingement and CTS. She also received the [employer] COVID vaccine 05/23/20, so she was sent for an US of the LUE to rule out any clots, which was negative. She reports pain onset was sudden, constant and rates the pain a 10/10. She states the pain is interfering with sleep, activities of daily living and she cannot function normally. Her pain is exacerbated by activity, weather changes but can be present at rest.he patient reports the pain in terms of tissue damage as pulsing, throbbing, shooting, stabbing, sharp, wrenching, burning as well as tingling, heavy, tiring and radiating. She has tried lidocaine patches, tylenol and advil with minimal improvement in her pain. She has had some alleviation in her pain with heat application. Previously she has tried physical therapy but not recently. She is not interested as she has not benefited in the past.? Denies any chiropractic manipulation, massage or acupuncture. She notes having bilateral arthroscopic shoulder surgery over ten years ago. [facility] [place] Medical History Hot flashes Pure hypercholesterolemia Impaired fasting glucose Numbness and tingling in left hand Obstructive sleep apnea Polyarthritis Degenerative cervical spinal stenosis Morbid obesity with body mass index (BMI) of 40.0 to 49.9 Right shoulder pain Pain and swelling of left upper extremity Dermatitis Tubular adenoma REGINO on CPAP Hives Smoker Asthma Fibromyalgia Bilateral hand pain Weakness of both hands Arthralgia Surgical History H/O neck surgery H/O colonoscopy History of History of repair of rotator cuff Family History Father Medical history unknown Mother Medical history unknown Paternal Grandfather Diabetes FH: HTN (hypertension) Social History Household Members: Family Housing: House Are you a primary home health aide caregiver to a significant other at home: No Do you presently have visiting nurse or other home services: No Alcohol intake: current Alcohol intake frequency: holidays/special occasions only Patient Tobacco Use Status: Current everyday Tobacco user Tobacco use type: Cigarette Cigarettes Per Day: 10 e-Cigarette/Vaping Use: Never Used Second Hand Smoke Exposure: Yes service: No Current occupational status: disabled Gender identity: Female Cognitive needs: No Hearing needs: No Vision needs: No Review of Systems Const All systems reviewed & are unremarkable except as noted in HPI and below Eyes Denies photophobia ENT Reports Normal hearing present Neuro Reports Normal hearing present Physical Exam Vital Signs: Last Vital Signs Pulse 95 12/18/22 10:14 Resp 16 12/18/22 10:14 BP 130/80 12/18/22 10:14 Pulse Ox 97 12/18/22 10:14 Oxygen Delivery Method Room Air 12/18/22 10:14 BMI result Body Mass Index 48.4 Const General: cooperative, healthy appearing, no acute distress and alert Orientation/consciousness: patient oriented x3 Limitations: No ambulation with cane, No ambulation with walker and No wheelchair HEENT Head: Yes normal to inspection, Yes normocephalic and Yes atraumatic Ears: hearing grossly normal bilaterally Eyes General: appearance normal, both eyes and all related structures Eyelids: Yes eyelids normal Sclerae: sclerae normal Pupils: Equal, round and reactive pupils present EOM: EOMs intact bilaterally Direct Ophthalmoscopy: No photophobia Neck Neck: Yes normal visual inspection, Yes full ROM, Yes trachea midline and Yes no JVD Chest Chest palpation & inspection: normal inspection of the chest Resp Effort & Inspection: normal respiratory effort, able to speak in complete sentences and no audible wheezes Cardio Jugular venous distension: no JVD Palpation: other (no appreciable rhythmic abnormalities) Peripheral pulses: radial pulses present (no palpable rhythmic abnormalities detected) bilateral and other Back/Spine/Pelvis Other: Patient with normal cervical ROM but reports moderate discomfort with movement, especially lateral rotation. Spurling compression test positive. Pain is unaffected by Spurling manuever with retraction. Elvey's tension test positive on left with radiation of pain from neck to wrist. Lhermitte's test negative. Patient demonstrated 4/5 motor strength of bilateral upper extremities. 2+ radial pulses. DTR symmetrical. Multiple tender points throughout left upper trapezius muscle. Sensation intact. Cervical Spine: cervical ROM normal, pain with cervical ROM and Cervical spine tenderness Neuro General: patient oriented x3, gait normal, moves all extremities and Normal light touch and pain sensation Cranial nerves: Yes Equal, round and reactive pupils present and Yes Normal hearing present Cognition (Neuro): normal cognition Gait exam (Neuro): Normal gait present Extrem Other: Severe tenderness on palpation on the anterior medial surface of the left knee. There is bilateral edema of bilateral knees. Right knees also tender on palpation but in lesser extent. Anterior posterior drawers symptoms are negative bilaterally. Anterior and posterior crucial ligaments also stable with lateral and medial shift test. No cogwheel motion is detected. The range daigle of motion is approximately 110 degrees. Slightly limited compared to normal. Most likely secondary to pain. Assessment & Plan Assessment & Plan (1) Bilateral knee pain: Code(s): M25.561 - Pain in right knee; M25.562 - Pain in left knee (2) Polyarthralgia: Comment: multiple joints Code(s): M25.50 - Pain in unspecified joint (3) Fibromyalgia: Code(s): M79.7 - Fibromyalgia (4) Bilateral wrist pain: Code(s): M25.531 - Pain in right wrist; M25.532 - Pain in left wrist (5) Arthritis of left knee: Code(s): M17.12 - Unilateral primary osteoarthritis, left knee (6) Left knee pain: Code(s): M25.562 - Pain in left knee (7) Rheumatoid arthritis: Comment: seroneg 05/08 SSZ started 09/07 incomplete response Code(s): M06.9 - Rheumatoid arthritis, unspecified Qualifiers: Rheumatoid arthritis location: multiple sites Rheumatoid factor presence: without rheumatoid factor Qualified Code(s): M06.09 - Rheumatoid arthritis without rheumatoid factor, multiple sites Plan The knee x-ray result came back normal with normal images of the bony elements. It does not mean that the patient has no inflammation in the bones and soft tissues. She is suffering from rheumatoid arthritis and she has left knee pain I will schedule her for infrapatellar saphenous diagnostic injection. Her pain is mostly on the medial side of the knee possibility exists that with sprint PNS versus curonNIX PNS we can help her pain in the knee. Coding Level of Care Code Est Pt Level 3 (43203) Diagnoses Bilateral knee pain M25.561; M25.562 Polyarthralgia M25.50 Fibromyalgia M79.7 Bilateral wrist pain M25.531; M25.532 Arthritis of left knee M17.12 Left knee pain M25.562 Rheumatoid arthritis of multiple sites with negative rheumatoid factor M06.09 Rheumatoid arthritis location: multiple sites Rheumatoid factor presence: without rheumatoid factor
[2022-12-18 10:14] VITALS: BP 130/80; PULSE 95; RESP 16; O2SAT 97; BMI 48.4
== END 2022-12-18 10:37 | disposition home or self-care (01) ==
PROVIDERS: PCP Internal Medicine; Visit Provider Anesthesiology
DX: M25.561 Pain in right knee (principal); M25.562 Pain in left knee; M25.50 Pain in unspecified joint; M79.7 Fibromyalgia; M25.531 Pain in right wrist; M25.532 Pain in left wrist; M17.12 Unilateral primary osteoarthritis, left knee; M06.09 Rheumatoid arthritis without rheumatoid factor, multiple sites
CPT/HCPCS: 99213

== ENCOUNTER → 2022-12-18 09:53 | Outpatient (BNVA) | payer OTHER, SELFPAY | PROVIDERS: PCP Internal Medicine; Visit Provider Anesthesiology | DX: M06.09 Rheumatoid arthritis without rheumatoid factor, multiple sites (principal); M25.50 Pain in unspecified joint; M79.7 Fibromyalgia; M25.561 Pain in right knee; M25.562 Pain in left knee; M25.531 Pain in right wrist; M25.532 Pain in left wrist | CPT/HCPCS: 99212 ==

== ENCOUNTER 2023-01-19 11:32 | Outpatient (REF) | payer OTHER, SELFPAY ==
[2023-01-19 11:57] LABS: MANUAL DIFF FLAG NO
[2023-01-19 12:11] LABS: Basophils Absolute Auto 0.1 X10*3/uL (0.0-0.2); Basophils Percent Auto 1.2 % (0-2); Eosinophils Absolute Auto 0.1 X10*3/uL (0.0-0.4); Eosinophils Percent Auto 2.1 % (0-4); Hematocrit 43.2 % (37.0-47.0); Hemoglobin 14.1 g/dl (12.0-16.0); Imm Gran Abs Auto 0.02 X10*3/uL (0.00-0.03); Imm Gran Pct Auto 0.3 % (0.0-0.4); Lymphocytes Absolute Auto 3.1 X10*3/uL (1.2-4.9); Lymphocytes Percent Auto 45.4 % (20-40); Mean Corpuscular HGB Conc 32.6 g/dl (31.0-35.0); Mean Corpuscular Hemoglobin 30.1 pg (27.0-33.0); Mean Corpuscular Volume 92.3 fL (80.0-98.0); Mean Platelet Volume 11.4 fL (9.4-12.3); Monocytes Absolute Auto 0.8 X10*3/uL (0.1-1.2); Monocytes Percent Auto 11.5 % (2-11); Neutrophils Absolute Auto 2.7 x10*3/uL (2.0-8.3); Neutrophils Percent Auto 39.5 % (45-73); Platelet Count 189 X10*3/uL (160-400); Red Blood Count 4.68 X10*6/uL (4.20-5.50); White Blood Count 6.7 X10*3/uL (4.8-10.8)
[2023-01-19 12:35] LABS: Alanine Aminotransferase 12 U/L (0-31); Alkaline Phosphatase 65 U/L (39-117); Anion Gap 11 (12-20); Aspartate Amino Transferase 13 U/L (5-31); Bilirubin Total 0.3 mg/dL (0.0-1.0); Blood Urea Nitrogen 11 mg/dL (9-16); C Reactive Protein 0.42 mg/dL (< or = 0.50); Calcium 9.4 mg/dL (8.4-10.2); Carbon Dioxide 28 mmol/L (22-29); Chloride 106 mmol/L (96-108); Estimated Glomerular Filt Rate > 60; Glucose Random 168 mg/dL (60-115); Potassium 4.4 mmol/L (3.3-5.1); Sodium 141 mmol/L (135-145); Total Protein 6.5 g/dL (6.5-8.0)
[2023-01-19 13:05] LABS: Erythrocyte Sedimentation Rate 12 MM/HR (0-20)
== END 2023-01-19 11:33 | disposition home or self-care (01) ==
LOC: HO.LAB 11:32
PROVIDERS: Student in an Organized Health Care Education/Training Program; PCP Internal Medicine; Visit Provider Internal Medicine
DX: M06.9 Rheumatoid arthritis, unspecified (principal); Z79.899 Other long term (current) drug therapy
CPT/HCPCS: 36415; 80053; 85025; 85652; 86140

== ENCOUNTER 2023-01-20 06:21 | Outpatient (REF) | payer OTHER, SELFPAY ==
--- NOTE | ~2023-01-20 | FL_ITS ---
EXAMINATION: XR FLUOROSCOPY WITH IMAGES CLINICAL INFORMATION: Pain in left knee. COMPARISON: None available. TECHNIQUE: Fluoroscopy Supervised By: Dr. Romario Mathias. Fluoroscopy Time: 0.0 minutes. Cumulative Dose: 1.29 mGy. DAP: 0.287 Gycm2. Images: 2. FINDINGS: Images demonstrate needle placement adjacent to the medial left proximal tibial metaphysis FL/FL guidance in treatment room IMPRESSION: Fluoroscopy for pain management procedure.
== END 2023-01-20 06:22 | disposition home or self-care (01) ==
LOC: CF 06:21
PROVIDERS: Visit Provider Anesthesiology
DX: M17.12 Unilateral primary osteoarthritis, left knee (principal); M25.561 Pain in right knee; M25.50 Pain in unspecified joint; M79.7 Fibromyalgia; M25.531 Pain in right wrist; M25.532 Pain in left wrist; M06.09 Rheumatoid arthritis without rheumatoid factor, multiple sites
CPT/HCPCS: 64450; 77002; J2795

== ENCOUNTER 2023-01-20 13:14 | Outpatient (AMB) | payer OTHER, SELFPAY ==
[2023-01-20 13:13] VITALS: BP 122/78; PULSE 101; RESP 12; O2SAT 98
--- NOTE | 2023-01-20 13:13 | MHC.OFFVIS ---
Intake Vital Signs 01/20/23 13:13 01/20/23 14:37 BP 122/78 140/82 H Blood Pressure Location Rt radial Rt brachial Position Sitting Respiration 12 12 Pulse 101 H 86 Pulse Source Pulse Oximeter Pulse Oximeter Pulse Oximetry (%) 98 97 Oxygen Delivery Method Room Air Room Air Intake Visit Reasons: L DX INFRAPATELLAR SAPH NB/LOCAL Allergies tramadol Allergy (Severe, Verified 01/20/23 13:20) n/v Penicillins [PENICILLINS] Allergy (Intermediate, Verified 01/20/23 13:20) HIVES [facility] Medical History Hot flashes Pure hypercholesterolemia Impaired fasting glucose Numbness and tingling in left hand Obstructive sleep apnea Polyarthritis Degenerative cervical spinal stenosis Morbid obesity with body mass index (BMI) of 40.0 to 49.9 Right shoulder pain Pain and swelling of left upper extremity Dermatitis Tubular adenoma REGINO on CPAP Hives Smoker Asthma Fibromyalgia Bilateral hand pain Weakness of both hands Arthralgia Surgical History H/O neck surgery H/O colonoscopy History of History of repair of rotator cuff Family History Father Medical history unknown Mother Medical history unknown Paternal Grandfather Diabetes FH: HTN (hypertension) Social History Household Members: Family Housing: House Are you a primary caregivers homecare to a significant other at home: No Do you presently have visiting nurse or other home services: No Alcohol intake: current Alcohol intake frequency: holidays/special occasions only Patient Tobacco Use Status: Current everyday Tobacco user Tobacco use type: Cigarette Cigarettes Per Day: 10 e-Cigarette/Vaping Use: Never Used Second Hand Smoke Exposure: Yes service: No Current occupational status: disabled Gender identity: Female Cognitive needs: No Hearing needs: No Vision needs: No Physical Exam Vital Signs: Last Vital Signs Pulse 86 01/20/23 14:37 Resp 12 01/20/23 14:37 BP 140/82 H 01/20/23 14:37 Pulse Ox 97 01/20/23 14:37 Oxygen Delivery Method Room Air 01/20/23 14:37 Assessment & Plan Assessment & Plan (1) Bilateral knee pain: Code(s): M25.561 - Pain in right knee; M25.562 - Pain in left knee (2) Polyarthralgia: Comment: multiple joints Code(s): M25.50 - Pain in unspecified joint (3) Fibromyalgia: Code(s): M79.7 - Fibromyalgia (4) Bilateral wrist pain: Code(s): M25.531 - Pain in right wrist; M25.532 - Pain in left wrist (5) Arthritis of left knee: Code(s): M17.12 - Unilateral primary osteoarthritis, left knee (6) Left knee pain: Code(s): M25.562 - Pain in left knee Plan: Left infrapatellar saphenous nerve block diagnostic. ? After obtaining informed consent the patient came to the operating room . She was positioned supine on the operating table.? Time-out procedure was performed delineating correct site and side of the injections, patient's name and date of , allergies, need for antibiotics, the patient had no hardware in the knee so the antibiotic is not required. Patient's left knee as well as anterior surface of lower thigh as well as anterior surface of upper shins were prepped with ChloraPrep and draped with sterile towels.? Sterilely draped C-arm was brought over the operating field and sq picture of the patient's left knee-was obtained on the screen.? The point of interest was delineated as the confluence of the diaphysis and metaphysis - on the medial tibial bone.? The point of interest projection to the skin were injected with small amount of Lidocaine and after that 22 g. 3&1/2 spinal needle was inserted through the skin .? The needle was driven to the the point of interest on anterior posterior and lateral views.? When on lateral views the needles were positioned with the tips in the projection of mid shaft of the bone the 1.5 to 2 cc of Marcaine - was injected into the needle after that needle was withdrawn sterile Band-Aid was applied,? patient tolerated procedure well (7) Rheumatoid arthritis: Comment: seroneg 05/08 SSZ started 09/07 incomplete response Code(s): M06.9 - Rheumatoid arthritis, unspecified Qualifiers: Rheumatoid arthritis location: multiple sites Rheumatoid factor presence: without rheumatoid factor Qualified Code(s): M06.09 - Rheumatoid arthritis without rheumatoid factor, multiple sites Plan The knee x-ray result came back normal with normal images of the bony elements. It does not mean that the patient has no inflammation in the bones and soft tissues. She is suffering from rheumatoid arthritis and she has left knee pain I will schedule her for infrapatellar saphenous diagnostic injection. Her pain is mostly on the medial side of the knee possibility exists that with sprint PNS versus curonNIX PNS we can help her pain in the knee. Orders: Orders FL guidance in treatment room 01/20/23 M25.562 - Pain in left knee Coding Level of Care Code Procedure Only Diagnoses Bilateral knee pain M25.561; M25.562 Polyarthralgia M25.50 Fibromyalgia M79.7 Bilateral wrist pain M25.531; M25.532 Arthritis of left knee M17.12 Left knee pain M25.562 Rheumatoid arthritis of multiple sites with negative rheumatoid factor M06.09 Rheumatoid arthritis location: multiple sites Rheumatoid factor presence: without rheumatoid factor
[2023-01-20 14:37] VITALS: BP 140/82; PULSE 86; RESP 12; O2SAT 97
== END 2023-01-20 14:04 | disposition home or self-care (01) ==
LOC: HO.PMCPRC 13:14
PROVIDERS: PCP Internal Medicine; Visit Provider Anesthesiology
DX: M25.562 Pain in left knee (principal)
CPT/HCPCS: 64450; 77002

== ENCOUNTER 2023-01-21 09:05 | Outpatient (REF) | payer OTHER, SELFPAY ==
[2023-01-21 09:28] LABS: MANUAL DIFF FLAG NO
[2023-01-21 09:53] LABS: Basophils Absolute Auto 0.1 X10*3/uL (0.0-0.2); Basophils Percent Auto 1.1 % (0-2); Eosinophils Absolute Auto 0.2 X10*3/uL (0.0-0.4); Eosinophils Percent Auto 2.1 % (0-4); Hematocrit 42.9 % (37.0-47.0); Imm Gran Abs Auto 0.01 X10*3/uL (0.00-0.03); Imm Gran Pct Auto 0.1 % (0.0-0.4); Lymphocytes Absolute Auto 3.4 X10*3/uL (1.2-4.9); Lymphocytes Percent Auto 47.5 % (20-40); Mean Corpuscular HGB Conc 32.6 g/dl (31.0-35.0); Mean Corpuscular Hemoglobin 29.9 pg (27.0-33.0); Mean Corpuscular Volume 91.7 fL (80.0-98.0); Mean Platelet Volume 11.1 fL (9.4-12.3); Monocytes Absolute Auto 0.9 X10*3/uL (0.1-1.2); Monocytes Percent Auto 12.3 % (2-11); Neutrophils Absolute Auto 2.6 x10*3/uL (2.0-8.3); Neutrophils Percent Auto 36.9 % (45-73); Platelet Count 191 X10*3/uL (160-400); Red Blood Count 4.68 X10*6/uL (4.20-5.50); Red Cell Distribution Width 15.8 % (11.0-16.0); White Blood Count 7.2 X10*3/uL (4.8-10.8)
[2023-01-21 09:58] LABS: Appearance Urine Clear; Color Urine Yellow; Glucose Urine UA Negative (Negative); Leukocyte Esterase Urine Negative (Negative); Nitrite Urine Negative (Negative); Specific Gravity - Urine 1.025 (1.005-1.025); UMIC TRIGGER UACC YES; Urine Blood Small (1+) (Negative); Urine Ketones Negative (Negative); Urine Protein Negative (Neg-Trace)
[2023-01-21 10:04] LABS: Bacteria Urine 1+ (None Seen); Hyaline Casts Urine 0-2 /LPF (0-2); WBC Urine 0-5 /HPF (0-5)
[2023-01-21 10:39] LABS: Estimated Average Glucose 120 mg/dL; Hemoglobin A1c % 5.8 % (<6.0)
[2023-01-21 10:46] LABS: Alanine Aminotransferase 11 U/L (0-31); Alkaline Phosphatase 65 U/L (39-117); Anion Gap 13 (12-20); Aspartate Amino Transferase 13 U/L (5-31); Bilirubin Total 0.3 mg/dL (0.0-1.0); Blood Urea Nitrogen 15 mg/dL (9-16); Calcium 9.6 mg/dL (8.4-10.2); Carbon Dioxide 25 mmol/L (22-29); Chloride 108 mmol/L (96-108); Cholesterol 211 mg/dL (<200); Estimated Glomerular Filt Rate > 60; Glucose Fasting 105 mg/dL (60-99); HDL Cholesterol 39 mg/dL (>40); LDL Cholesterol Calculated 153 mg/dL (<100); Potassium 4.7 mmol/L (3.3-5.1); Sodium 141 mmol/L (135-145); Total Protein 6.8 g/dL (6.5-8.0); Triglycerides 95 mg/dL (<150)
[2023-01-21 10:51] LABS: TSH reflex Free T4 1.76 uIU/mL (0.32-4.0); Vitamin D 25-OH Total 35.7 ng/mL (>30)
== END 2023-01-21 09:06 | disposition home or self-care (01) ==
LOC: HO.LAB 09:05
PROVIDERS: PCP Internal Medicine; Visit Provider Internal Medicine
DX: E78.00 Pure hypercholesterolemia, unspecified (principal); R73.01 Impaired fasting glucose; E55.9 Vitamin D deficiency, unspecified; I10 Essential (primary) hypertension
CPT/HCPCS: 36415; 80053; 80061; 81001; 82306; 83036; 84443; 85025

== ENCOUNTER 2023-01-22 09:26 | Outpatient (AMB) | payer OTHER, SELFPAY ==
[2023-01-22 09:32] VITALS: BP 124/86; PULSE 101; O2SAT 96; BMI 48.4
--- NOTE | 2023-01-22 09:32 | MHC.PC.OV ---
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: No Accompanied by: Self / Same As Patient Allergies tramadol Allergy (Severe, Verified 01/22/23 10:10) n/v Penicillins [PENICILLINS] Allergy (Intermediate, Verified 01/22/23 10:10) HIVES Medication List - Last Reconciled 01/22/23 by Bunny Hdez MD albuterol sulfate 90 mcg/actuation (Ventolin HFA) inhalation brimonidine 0.2% 1 drp ophthalmic (eye) Q8H cetirizine (Zyrtec) 10 mg PO DAILY cholecalciferol (vitamin D3) 50 mcg PO DAILY 90 days Enbrel SureClick (etanercept) 50 mg subcut QWEEK NS fluticasone propionate 110 mcg/actuation (Flovent HFA) 2 puffs inhalation BID 30 days folic acid 1 mg PO DAILY ibuprofen (Advil) 200 mg PO Q6H PRN ibuprofen-acetaminophen 125-250 mg (Advil Dual Action) 3 tabs PO ONCE PRN latanoprost 0.005% 1 drp ophthalmic (eye) QPM netarsudil 0.02% (Rhopressa) 1 drp ophthalmic (eye) BEDTIME sulfasalazine 1 g (2 x 500 mg) PO BID Tobacco use date assessed: 01/22/23 Dental Screening Dental Screen Date: 01/22/23 Did you have a dental visit in the last 12 months?: Yes Did you have a dental problem in the last 6 months where you did not have access to dental care?: No Was dental information given to patient?: Patient has dentist HPI hyperlipidemia, asthma, RA HPI Details Patient comes in today for her follow up visit States that she is still experiencing diffuse joint pains, especially over her hips, knees and hands She was started on Sulfasalazine by rheumatology a few months ago for her seronegative rheumatoid arthritis but did not appear to have responded much to Tx; was started on Enbrel and she will be on Enbrel for 8 weeks by tomorrow States that she has also not really experienced any significant improvement of her symptom/arthralgia on Enbrel so far She has a follow up appointment with rheumatology tomorrow and will discuss this further with Dr. Peters She also presently appears to be dealing with issues with glaucoma in her eyes and was just seen by an older adult social work specialist from [facility] last week States that they increased the frequency of one of her eyedrops (patient is not sure which one but it is likely his Brimonidine) to 3 times a day She denies any headaches or dizziness Denies any chest pains, no increased SOB No nausea/vomiting, no abdominal pain No change in bowel habits noted Adds that she has been experiencing issues with anxiety / PTSD lately Has not seen a therapist in a while now since her last therapist quit her job 1 to 2 years ago - was going to [place] Does not want to be referred at this time but states that she will think about it and will discuss this again at her next follow up appt Would like to go back to [place] if she has to see psychiatry again; does not want to go to [facility] as her mother supposedly works there Needs her Cetirizine Rx refilled Had her follow up labs done yesterday - to discuss her results [facility] Medical History Anxiety Glaucoma Seronegative rheumatoid arthritis Hot flashes Pure hypercholesterolemia Impaired fasting glucose Numbness and tingling in left hand Obstructive sleep apnea Polyarthritis Degenerative cervical spinal stenosis Morbid obesity with body mass index (BMI) of 40.0 to 49.9 Right shoulder pain Pain and swelling of left upper extremity Dermatitis Tubular adenoma REGINO on CPAP Hives Smoker Asthma Fibromyalgia Bilateral hand pain Weakness of both hands Arthralgia Surgical History H/O neck surgery H/O colonoscopy History of History of repair of rotator cuff Family History Father Medical history unknown Mother Medical history unknown Paternal Grandfather Diabetes FH: HTN (hypertension) Social History Household Members: Family Housing: House Are you a primary critical care cns to a significant other at home: No Do you presently have visiting nurse or other home services: No Alcohol intake: current Alcohol intake frequency: holidays/special occasions only Patient Tobacco Use Status: Current everyday Tobacco user Tobacco use type: Cigarette Cigarettes Per Day: 10 e-Cigarette/Vaping Use: Never Used Second Hand Smoke Exposure: Yes service: No Current occupational status: disabled Gender identity: Female Cognitive needs: No Hearing needs: No Vision needs: No Questionnaire PHQ-9 Over the last 2 weeks, how often have you been bothered by any of the following problems? 1. Little interest or pleasure in doing things: several days 2. Feeling down, depressed, or hopeless: several days 3. Trouble falling or staying asleep, or sleeping too much: several days 4. Feeling tired or having little energy: several days 5. Poor appetite or overeating: not at all 6. Feeling bad about yourself - or that you are a failure or have let yourself or your family down: several days 7. Trouble concentrating on things, such as reading the newspaper or watching television: not at all 8. Moving or speaking so slowly that other people could have noticed. Or the opposite - being so fidgety or restless that you have been moving around a lot more than usual: not at all 9. Thoughts that you would be better off or of hurting yourself in some way: several days Total score: 6 Depression Screening Interpretation: Positive Depression Screening Follow-up: Existing condition and Community Mental Health Worker F/U Depression Screening Done: Yes 74473 - PHQ-9 Billing: Yes Source: Developed by Drs. Alberto Gaytan, Wendy Hernandez, Tonny Ward and colleagues, with an educational di from [employer]. Thrive Questionnaire Date Thrive assessed: 01/22/23 I am a: Patient What is your living situation today?: I have a steady place to live Within the past 12 months, did the food you bought not last and you didn't have the money to get more?: Never true Within the past 12 months, did you worry whether your food would run out before you got money to buy more?: Never true Do you have trouble paying for medicines?: No Do you have trouble getting transportation to medical appointments?: No Do you have trouble paying your heating and electricity bill?: No Do you have trouble taking care of your child, family member or friend?: No Do you have trouble with day-to-day activities such as bathing, preparing meals, shopping, managing finances, etc.?: No Are you currently unemployed and looking for a job?: No Are you interested in more education?: No Please select the resources that you would like help with: None Currently or been in a relationship where the following occur: no concerns reported AUDIT C Alcohol Use Questionnaire (AUDIT-C) 1. How often do you have a drink containing alcohol?: Never 3. How often do you have six or more drinks on one occasion?: Never Total Score: 0 Score Reviewed/Action Taken: Yes VIPUL-7 AMB Questionnaire VIPUL-7 Date VIPUL - 7 assessed: 01/22/23 Feeling nervous, anxious, or on edge: 0 = Not at all Not being able to stop or control worryin = More than half the days Worrying too much about different things: 0 = Not at all Trouble relaxin = Not at all Being so restless that it is hard to sit still: 1 = Several days Becoming easily annoyed or irritable: 3 = Nearly every day Feeling afraid as if something awful might happen: 0 = Not at all Total VIPUL-7 score (0-4 normal; 5-9 mild; 10-14 moderate; 15-21 severe): 6 Source: Developed by Drs. Alberto Gaytan, Wendy Hernandez, Tonny Ward and colleagues, with an educational di from [employer]. Review of Systems Const Reports body aches, Reports difficulty sleeping, Reports fatigue, Denies fever(s) and Denies headache(s) Eyes Reports blurry vision ENT Denies dysphagia, Denies dizziness, Denies otalgia, Denies headache(s), Reports neck pain, Denies odynophagia and Denies sore throat Card Denies chest pain, Denies palpitations and Denies dyspnea Resp Denies chest congestion, Denies cough, Denies dyspnea and Denies wheezing GI Denies abdominal pain, Denies constipation, Denies dysphagia, Denies heartburn, Denies diarrhea, Denies nausea, Denies odynophagia and Denies vomiting Denies difficulty voiding, Denies nocturia, Denies dysuria and Denies urinary urgency Musc Reports back pain, Reports myalgias (diffuse), Reports arthralgias (over multiple joints; pain over both wrists and hands & knees), Reports neck pain and Reports stiffness (over multiple joints) Skin/Breast Denies rash Neuro Denies dizziness and Denies headache(s) Endo Reports fatigue and Denies palpitations Aller/Immun Denies wheezing Physical exam (Primary Care) Vital Signs: Last Vital Signs Pulse 101 H 01/22/23 09:32 BP 124/86 01/22/23 09:32 Pulse Ox 96 01/22/23 09:32 Oxygen Delivery Method Room Air 01/22/23 09:32 BMI result Body Mass Index 48.4 Tobacco/Smoking Status: Tobacco use Status Tobacco use date assessed 01/22/23 01/22/23 09:38 Patient Tobacco Use Status Current everyday Tobacco 01/22/23 09:38 Tobacco use type Cigarette 01/22/23 09:38 e-Cigarette/Vaping Use Never Used 01/22/23 09:38 PHQ-9: PHQ-9 Score PHQ-9: Total score 6 01/22/23 10:15 Depression Screening Interpretation: Positive Depression Screening Follow-up: Existing condition and Community Mental Health Worker F/U Thrive Assessment: Date of Thrive Assessment Date Thrive assessed 01/22/23 01/22/23 09:38 Currently or been in a relationship where the following occur: no concerns reported Const General: no acute distress and alert HENMT Ears: TM's normal bilaterally and EAC's normal Throat: Yes posterior oropharynx normal and Yes tonsils normal (no TP congestion noted) Neck Neck: Yes no lymphadenopathy and Yes supple Resp Auscultation: clear to auscultation bilaterally, no rales, no wheezes and diminished lung sounds (slightly) diffuse Cardio Rate: regular rate Rhythm: regular rhythm Heart sounds: no murmurs GI Palpation (GI): Soft to palpation and nontender Auscultation: normal bowel sounds Back/Spine/Pelvis Cervical Spine: Cervical spine tenderness Thoracic/Lumbar Spine: lumbar spinal tenderness Extrem General: Yes no clubbing, cyanosis or edema Right upper extremity: wrist Details: tenderness; no swelling Left upper extremity: wrist ((+) Phalen's test) Right lower extremity: hip/thigh Details: tenderness Location: of the hip and knee Details: tenderness Left lower extremity: hip/thigh Details: tenderness Location: of the hip and knee Details: tenderness Results Reviewed Results Reviewed: Laboratory Tests 01/19/23 01/21/23 01/21/23 11:56 09:27 09:27 WBC 7.2 Hgb Hct Plt Count ESR 12 Sodium Potassium Creatinine Estimated GFR Fasting Glucose Hemoglobin A1c % Calcium AST ALT Triglycerides Cholesterol LDL Cholesterol, Calc HDL Cholesterol 39 L 25-OH Vitamin D Total 35.7 TSH 1.76 Ur Specific [place] Urine Protein Urine Glucose (UA) Urine Blood 01/21/23 01/21/23 09:27 09:30 WBC Hgb 14.0 Hct 42.9 Plt Count 191 ESR Sodium 141 Potassium 4.7 Creatinine 0.83 Estimated GFR > 60 Fasting Glucose 105 H Hemoglobin A1c % 5.8 Calcium 9.6 AST 13 ALT 11 Triglycerides 95 Cholesterol 211 H LDL Cholesterol, Calc 153 H HDL Cholesterol 25-OH Vitamin D Total TSH Ur Specific [place] 1.025 Urine Protein Negative Urine Glucose (UA) Negative Urine Blood Small (1+) H Assessment and Plan Assessment & Plan (1) Pure hypercholesterolemia: Code(s): E78.00 - Pure hypercholesterolemia, unspecified Plan: Results of her labs done a few days ago reviewed and discussed with patient - cautioned that her cholesterol levels are still elevated but they have improved slightly from previous Reinforced low cholesterol diet Will recheck her labs and fasting lipids in 4 months for follow up (2) Impaired fasting glucose: Code(s): R73.01 - Impaired fasting glucose Plan: HgbA1c was at 5.8% on her labs done a few days ago; she was borderline at 6.1% a few months ago Reinforced low calorie/low carb diet Advised again that exercise and losing weight can also help but she states again that it is impossible for her to do any exercise given her current conditions Will recheck her FBS and HgbA1c again in 4 months for follow up (3) Asthma: Code(s): J45.909 - Unspecified asthma, uncomplicated Qualifiers: Asthma complication type: uncomplicated Asthma persistence: intermittent Asthma severity: mild Qualified Code(s): J45.20 - Mild intermittent asthma, uncomplicated Plan: Appears stable and better controlled lately Continue Flovent HFA 110 mcg 2 inhalations BID, Montelukast 10 mg QD and Albuterol HFA 2 inhalations every 6 hours as needed (4) Seronegative rheumatoid arthritis: Code(s): M06.00 - Rheumatoid arthritis without rheumatoid factor, unspecified site Plan: She was seen by rheumatology (Dr. Lucero) last year and no additional recommendations were provided/offered Is now seeing [facility] - was worked up for inflammatory arthritis and diagnosed with seronegative rheumatoid arthritis Patient declined offer to start her on Methotrexate previously due to fear of side effects and was tried instead on Sulfasalazine 1 gm BID She was determined to have inadequate response to Tx at her last visit and was started additionally on Enbrel - states that she will be on Enbrel x 8 weeks by tomorrow and has a follow up appointment with rheumatology tomorrow to assess her Tx response (5) Fibromyalgia: Code(s): M79.7 - Fibromyalgia Plan: She was again encouraged to continue with regular exercise and physical activity (as tolerated) to help manage her fibromyalgia symptoms better Was on Pregabalin 150 mg TID for a few months but states that it has not helped (6) Polyarthritis: Code(s): M13.0 - Polyarthritis, unspecified Plan: Follow up with [facility] and with [facility] rheumatology as scheduled Has received joint injections in the past but patient states that they did not help much although she recently started back up with pain management again and received some injections into her knee a couple of days ago, which she feels have not helped much Has been advised by orthopedics that they will only consider scheduling her for joint replacement surgery if she can lose weight and get her BMI down to at least <45 - patient reports that she can hardly do any activity or exercise and is not optimistic that she can lose any significant amount of weight Was recently diagnosed with RA and is being treated/managed by rheumatology for this (7) Chronic hip pain, bilateral: Code(s): M25.551 - Pain in right hip; M25.552 - Pain in left hip; G89.29 - Other chronic pain Plan: MRI of the hips done back in 2012 revealed minimal degenerative arthritis in the left hip and mild degenerative arthritis in the right hip Per request, was sent for repeat MRI of the hips for further evaluation of her increasing bilateral hip pain but this was denied by insurance Follow up with [facility] as scheduled (8) Degenerative cervical spinal stenosis: Comment: S/P anterior discectomy Code(s): M48.02 - Spinal stenosis, cervical region Plan: Patient reports (+) improvement of pain in her left wrist but still has weakness and on and off pain radiating down her left arm at times Follow up with neurosurgery as scheduled (9) Hives: Code(s): L50.9 - Urticaria, unspecified Plan: Continue Cetirizine 10 mg QD PRN - Rx refilled (10) Vitamin D deficiency: Code(s): E55.9 - Vitamin D deficiency, unspecified Plan: Continue Vitamin D3 2000 units QD (11) Obstructive sleep apnea: Code(s): G47.33 - Obstructive sleep apnea (adult) (pediatric) Plan: Follow up with sleep medicine as scheduled Was scheduled for a repeat study at [facility] in December 2021 but states that she was recently advised by sleep specialist that it is not worth doing as it is not going to provide any additional useful information at this time Am not sure what other recommendations they have for her at this time as I do not have any records of her OV notes with them to go over (12) Glaucoma: Code(s): H40.9 - Unspecified glaucoma Qualifiers: Glaucoma type: unspecified Laterality: bilateral Qualified Code(s): H40.9 - Unspecified glaucoma Plan: Continue Rhopressa 1 drop into each eye Q HS, Latanoprost 0.005% 1 drop into each eye Q PM and Brimonidine 0.2% 1 drop into each eye TID Follow up with ophthalmology as scheduled (13) Anxiety: Code(s): F41.9 - Anxiety disorder, unspecified Plan: Patient feels that she has been having issues with anxiety lately - thinks she has PTSD Was seeing therapist at [facility] in the past but states that her therapist left the area months ago and she has not seen anybody since She does not want to go to [facility] as her mother supposedly works there Have offered to refer her back to [facility] but she declined at this time - states that she would like to think about it a little more and will call for referral if she makes up her mind to go back to [facility] (14) Smoker: Code(s): F17.200 - Nicotine dependence, unspecified, uncomplicated Plan: Counseled again on smoking cessation (15) Morbid obesity with body mass index (BMI) of 40.0 to 49.9: Code(s): E66.01 - Morbid (severe) obesity due to excess calories Plan: Reinforced diet/exercise as tolerated/lose weight but patient states that exercise is unrealistic given her current multiple conditions Plan Follow up in 4 months Orders: Orders Lipid Panel 4 Months E78.00 - Pure hypercholesterolemia, unspecified Complete Blood Count Auto Diff 4 Months I10 - Essential (primary) hypertension Hemoglobin A1c 4 Months R73.01 - Impaired fasting glucose Vitamin D 25-OH Total 4 Months E55.9 - Vitamin D deficiency, unspecified Comprehensive [place]. Panel Fast 4 Months E78.00 - Pure hypercholesterolemia, unspecified TSH reflex Free T4 4 Months E78.00 - Pure hypercholesterolemia, unspecified UA CC w/rflx Micro + Cult 4 Months R30.0 - Dysuria Medications: Refilled cetirizine (Zyrtec) 10 mg PO DAILY 90 tabs 1RF allergy symptoms L28.2 - Other prurigo Coding Level of Care Code Est Pt Level 4 (69097) Diagnoses Pure hypercholesterolemia E78.00 Impaired fasting glucose R73.01 Mild intermittent asthma without complication J45.20 Asthma complication type: uncomplicated Asthma persistence: intermittent Asthma severity: mild Seronegative rheumatoid arthritis M06.00 Fibromyalgia M79.7 Polyarthritis M13.0 Chronic hip pain, bilateral M25.551; M25.552; G89.29 Degenerative cervical spinal stenosis M48.02 Hives L50.9 Vitamin D deficiency E55.9 Obstructive sleep apnea G47.33 Glaucoma of both eyes, unspecified glaucoma type H40.9 Glaucoma type: unspecified Laterality: bilateral Anxiety F41.9 Smoker F17.200 Morbid obesity with body mass index (BMI) of 40.0 to 49.9 E66.01
== END 2023-01-22 10:27 | disposition home or self-care (01) ==
PROVIDERS: PCP Internal Medicine; Visit Provider Internal Medicine
DX: E78.00 Pure hypercholesterolemia, unspecified (principal); M06.00 Rheumatoid arthritis without rheumatoid factor, unspecified site; E66.01 Morbid (severe) obesity due to excess calories; Z68.42 Body mass index [BMI] 45.0-49.9, adult; R73.01 Impaired fasting glucose; J45.20 Mild intermittent asthma, uncomplicated; M79.7 Fibromyalgia; M13.0 Polyarthritis, unspecified; M25.551 Pain in right hip; G89.29 Other chronic pain; M25.552 Pain in left hip; M48.02 Spinal stenosis, cervical region
CPT/HCPCS: 99214

== ENCOUNTER 2023-01-23 10:14 | Outpatient (AMB) | payer OTHER, SELFPAY ==
--- NOTE | 2023-01-23 10:24 | MHC.OFFVIS ---
Intake Vital Signs 01/23/23 10:25 Height 5 ft 4 in Weight 286 lb 9.615 oz BMI 49.2 BP 118/72 Blood Pressure Location Rt brachial Position Sitting Pulse 101 H Pulse Source Pulse Oximeter Temp 97 F Temp Source Skin Pulse Oximetry (%) 97 Oxygen Delivery Method Room Air Intake Visit Reasons: RA Intake Note: Pt last seen 11/04/22, presents today for follow up and test results. Portfolio Management Marketing Required: No Accompanied by: Self / Same As Patient Allergies tramadol Allergy (Severe, Verified 01/23/23 10:24) n/v Penicillins [PENICILLINS] Allergy (Intermediate, Verified 01/23/23 10:24) HIVES Medication List - Last Reconciled 01/23/23 by Phil Peters MD albuterol sulfate 90 mcg/actuation (Ventolin HFA) inhalation brimonidine 0.2% 1 drp ophthalmic (eye) Q8H cetirizine (Zyrtec) 10 mg PO DAILY cholecalciferol (vitamin D3) 50 mcg PO DAILY 90 days Enbrel SureClick (etanercept) 50 mg subcut QWEEK NS fluticasone propionate 110 mcg/actuation (Flovent HFA) 2 puffs inhalation BID 30 days folic acid 1 mg PO DAILY ibuprofen (Advil) 200 mg PO Q6H PRN ibuprofen-acetaminophen 125-250 mg (Advil Dual Action) 3 tabs PO ONCE PRN latanoprost 0.005% 1 drp ophthalmic (eye) QPM netarsudil 0.02% (Rhopressa) 1 drp ophthalmic (eye) BEDTIME sulfasalazine 1 g (2 x 500 mg) PO BID HPI HPI Comments History of Present Illness Details 53-year-old female with seronegative rheumatoid arthritis returns for follow-up. She is on sulfasalazine 1000 mg Twice daily and Enbrel weekly. Enbrel started about 8 weeks ago. She states that she feels about the same overall. Majority of her pain is in her left knee. She went for infrapatellar saphenous nerve block by Pain Management a few days ago with significant relief of left knee pain. Initial history: This is a 52-year-old morbidly obese female with a past medical history of asthma, anxiety, fibromyalgia, REGINO, degenerative disc disease cervical spine presents for evaluation of bilateral hand pain and swelling. Per patient the condition started a little over a year ago with bilateral hands, wrist swelling and pain, associated with morning stiffness lasting 30 minutes. Patient would have difficulty grabbing objects. Recently been having left ankle swelling without pain. Patient states that adult dual action will provide some relief. She stated she had hives do weeks ago resolved with Zyrtec. She denies any history suggestive of Raynaud's. She continues to smoke. No history of DVT/PE. [facility] Medical History (Updated 01/23/23 @ 10:52 by Phil Peters MD) Cataract Anxiety Glaucoma Seronegative rheumatoid arthritis Hot flashes Pure hypercholesterolemia Impaired fasting glucose Numbness and tingling in left hand Obstructive sleep apnea Polyarthritis Degenerative cervical spinal stenosis Morbid obesity with body mass index (BMI) of 40.0 to 49.9 Right shoulder pain Pain and swelling of left upper extremity Dermatitis Tubular adenoma REGINO on CPAP Hives Smoker Asthma Fibromyalgia Bilateral hand pain Weakness of both hands Arthralgia Surgical History H/O neck surgery H/O colonoscopy History of History of repair of rotator cuff Family History Father Medical history unknown Mother Medical history unknown Paternal Grandfather Diabetes FH: HTN (hypertension) Social History Household Members: Family Housing: House Are you a primary care transport nurse to a significant other at home: No Do you presently have visiting nurse or other home services: No Alcohol intake: current Alcohol intake frequency: holidays/special occasions only Patient Tobacco Use Status: Current everyday Tobacco user Tobacco use type: Cigarette Cigarettes Per Day: 10 e-Cigarette/Vaping Use: Never Used Second Hand Smoke Exposure: Yes service: No Current occupational status: disabled Gender identity: Female Cognitive needs: No Hearing needs: No Vision needs: No Review of Systems Musc Reports arthralgias, Reports joint swelling and Reports stiffness Physical Exam Vital Signs: Last Vital Signs Temp 97 F 01/23/23 10:25 Pulse 101 H 01/23/23 10:25 BP 118/72 01/23/23 10:25 Pulse Ox 97 01/23/23 10:25 Oxygen Delivery Method Room Air 01/23/23 10:25 BMI result Body Mass Index 49.2 Const General: cooperative, healthy appearing, comfortable and no acute distress Nutritional Appearance: obese morbidly obese Orientation/consciousness: patient oriented x3 Limitations: no limitations HEENT Head: Yes normocephalic and Yes atraumatic Resp Effort & Inspection: normal respiratory effort and able to speak in complete sentences Neuro General: patient oriented x3 Extrem Other: No wrist pain with flexion extension today Negative MCP squeeze test bilateral Bilateral diffuse MCP puffiness but no tenderness Mildly reduced left social service agency director strength No ankle swelling or tenderness today Negative MTP squeeze test bilaterally Left knee tenderness medially Assessment & Plan Assessment & Plan (1) Rheumatoid arthritis: Comment: seroneg 05/08 SSZ started 09/07 incomplete response Enbrel added 12/08 effective Code(s): M06.9 - Rheumatoid arthritis, unspecified Qualifiers: Rheumatoid arthritis location: multiple sites Rheumatoid factor presence: without rheumatoid factor Qualified Code(s): M06.09 - Rheumatoid arthritis without rheumatoid factor, multiple sites Plan: This is a 52-year-old female with seronegative rheumatoid arthritis presents for follow-up. Sheitis is on sulfasalazine 1000 mg Twice daily and Enbrel 50 mg once weekly. Doing much better overall. ?today the only involved joint is her knees which is likely related to osteoarthritis. Inflammatory markers have normalized. 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 Patient fully aware. Advised patient to seek medical care DANIELA if patient has an infection and advised patient to stop the medication until the infection is resolved. (3) Immunization counseling: Code(s): Z71.85 - Encounter for immunization safety counseling Plan: Discussed ACR vaccination guidelines follows with autoimmune rheumatic disease. Patient received the COVID booster vaccine for this season but she did not get the flu vaccine. She states that she generally gets side effects with flu vaccine Plan I spent 26 minutes reviewing patient's chart, evaluating patient, ordering diagnostic workup, counseling patient and documenting in the chart Orders: Orders Erythrocyte Sedimentation Rate 01/19/23 M06.9 - Rheumatoid arthritis, unspecified, Z79.899 - Other marine oil terminal superintendent (current) drug therapy Comprehensive Met. Panel 3 Months M06.00 - Rheumatoid arthritis without rheumatoid factor, unspecified site Erythrocyte Sedimentation Rate 3 Months M06.00 - Rheumatoid arthritis without rheumatoid factor, unspecified site C Reactive Protein 01/19/23 M06.9 - Rheumatoid arthritis, unspecified, Z79.899 - Other marine oil terminal superintendent (current) drug therapy Complete Blood Count Auto Diff 01/19/23 M06.9 - Rheumatoid arthritis, unspecified, Z79.899 - Other marine oil terminal superintendent (current) drug therapy Comprehensive Met. Panel 01/19/23 M06.9 - Rheumatoid arthritis, unspecified, Z79.899 - Other marine oil terminal superintendent (current) drug therapy Complete Blood Count Auto Diff 3 Months M06.00 - Rheumatoid arthritis without rheumatoid factor, unspecified site C Reactive Protein 3 Months M06.00 - Rheumatoid arthritis without rheumatoid factor, unspecified site Coding Level of Care Code Est Pt Level 4 (00875) Diagnoses Rheumatoid arthritis of multiple sites with negative rheumatoid factor M06.09 Rheumatoid arthritis location: multiple sites Rheumatoid factor presence: without rheumatoid factor On sulfasalazine therapy Z79.899 Immunization counseling Z71.85
[2023-01-23 10:25] VITALS: BP 118/72; PULSE 101; TEMP 36.1; O2SAT 97; BMI 49.2
== END 2023-01-23 10:50 | disposition home or self-care (01) ==
PROVIDERS: PCP Internal Medicine; Visit Provider Student in an Organized Health Care Education/Training Program
DX: M06.09 Rheumatoid arthritis without rheumatoid factor, multiple sites (principal); Z79.899 Other long term (current) drug therapy; Z71.85 Encounter for immunization safety counseling
CPT/HCPCS: 99214

== ENCOUNTER → 2023-01-23 10:14 | Outpatient (BNVA) | payer OTHER, SELFPAY | PROVIDERS: PCP Internal Medicine; Visit Provider Student in an Organized Health Care Education/Training Program | DX: M06.9 Rheumatoid arthritis, unspecified (principal); Z79.899 Other long term (current) drug therapy; Z71.85 Encounter for immunization safety counseling | CPT/HCPCS: 99212 ==

== ENCOUNTER → 2023-01-26 08:40 | Outpatient (BNVA) | payer OTHER, SELFPAY | PROVIDERS: PCP Internal Medicine; Visit Provider Anesthesiology ==

== ENCOUNTER 2023-04-16 13:12 | Outpatient (REF) | payer OTHER, SELFPAY | END 2023-04-16 13:13 | disposition home or self-care (01) | LOC: HO.MAMMO 13:12 | PROVIDERS: PCP Internal Medicine; Visit Provider Internal Medicine | DX: Z12.31 Encounter for screening mammogram for malignant neoplasm of breast (principal) | CPT/HCPCS: 77063; 77067 ==

== ENCOUNTER → 2023-04-16 13:15 | Outpatient (BNV) | payer OTHER, SELFPAY | PROVIDERS: PCP Internal Medicine; Visit Provider Radiology Diagnostic Radiology | DX: Z12.31 Encounter for screening mammogram for malignant neoplasm of breast (principal) | CPT/HCPCS: 77063; 77067 ==

== ENCOUNTER 2023-04-24 14:38 | Outpatient (REF) | payer OTHER, SELFPAY ==
[2023-04-24 15:01] LABS: MANUAL DIFF FLAG NO
[2023-04-24 15:39] LABS: Basophils Absolute Auto 0.1 X10*3/uL (0.0-0.2); Basophils Percent Auto 0.8 % (0-2); Eosinophils Percent Auto 0.1 % (0-4); Hemoglobin 14.1 g/dl (12.0-16.0); Imm Gran Abs Auto 0.04 X10*3/uL (0.00-0.03); Imm Gran Pct Auto 0.5 % (0.0-0.4); Lymphocytes Absolute Auto 1.6 X10*3/uL (1.2-4.9); Lymphocytes Percent Auto 19.7 % (20-40); Mean Corpuscular HGB Conc 33.6 g/dl (31.0-35.0); Mean Corpuscular Hemoglobin 30.9 pg (27.0-33.0); Mean Corpuscular Volume 92.1 fL (80.0-98.0); Monocytes Absolute Auto 0.4 X10*3/uL (0.1-1.2); Neutrophils Absolute Auto 5.9 x10*3/uL (2.0-8.3); Neutrophils Percent Auto 73.9 % (45-73); Platelet Count 207 X10*3/uL (160-400); Red Blood Count 4.56 X10*6/uL (4.20-5.50); Red Cell Distribution Width 15.8 % (11.0-16.0)
[2023-04-24 16:15] LABS: Alanine Aminotransferase 17 U/L (0-31); Albumin Level 4.2 g/dL (3.5-5.0); Alkaline Phosphatase 69 U/L (39-117); Anion Gap 10 (12-20); Aspartate Amino Transferase 13 U/L (5-31); Bilirubin Total 0.2 mg/dL (0.0-1.0); Blood Urea Nitrogen 9 mg/dL (9-16); C Reactive Protein 0.33 mg/dL (< or = 0.50); Calcium 9.3 mg/dL (8.4-10.2); Carbon Dioxide 25 mmol/L (22-29); Chloride 108 mmol/L (96-108); Estimated Glomerular Filt Rate > 60; Glucose Random 115 mg/dL (60-115); Potassium 4.2 mmol/L (3.3-5.1); Sodium 139 mmol/L (135-145); Total Protein 6.8 g/dL (6.5-8.0)
[2023-04-24 16:18] LABS: Erythrocyte Sedimentation Rate 10 MM/HR (0-20)
== END 2023-04-24 14:39 | disposition home or self-care (01) ==
LOC: HO.LAB 14:38
PROVIDERS: PCP Internal Medicine; Visit Provider Student in an Organized Health Care Education/Training Program
DX: M06.00 Rheumatoid arthritis without rheumatoid factor, unspecified site (principal)
CPT/HCPCS: 36415; 80053; 85025; 85652; 86140

== ENCOUNTER 2023-04-28 13:32 | Outpatient (AMB) | payer OTHER, SELFPAY ==
[2023-04-28 13:35] VITALS: BP 134/62; PULSE 89; O2SAT 97; BMI 48.4
--- NOTE | 2023-04-28 13:35 | A.OFFVIS_ITS ---
Intake Vital Signs 04/28/23 13:35 Height 5 ft 4 in Weight 282 lb 3.067 oz BMI 48.4 BP 134/62 Blood Pressure Location Rt brachial Position Sitting Pulse 89 Pulse Source Pulse Oximeter Pulse Oximetry (%) 97 Oxygen Delivery Method Room Air Intake Visit Reasons: RA Intake Note: Patient last seen 01/23/23 presents today for follow up and test results. Clinic Office Manager Required: No Accompanied by: Self / Same As Patient Allergies tramadol Allergy (Severe, Verified 04/28/23 13:38) n/v Penicillins [PENICILLINS] Allergy (Intermediate, Verified 04/28/23 13:38) HIVES Medication List - Last Reconciled 04/28/23 by Phil Peters MD brimonidine 0.2% 1 drp ophthalmic (eye) Q8H cetirizine (Zyrtec) 10 mg PO DAILY cholecalciferol (vitamin D3) 50 mcg PO DAILY 90 days Enbrel SureClick (etanercept) 50 mg subcut QWEEK NS fluticasone propionate 110 mcg/actuation (Flovent HFA) 2 puffs inhalation BID 30 days folic acid 1 mg PO DAILY ibuprofen (Advil) 200 mg PO Q6H PRN ibuprofen-acetaminophen 125-250 mg (Advil Dual Action) 3 tabs PO ONCE PRN latanoprost 0.005% 1 drp ophthalmic (eye) QPM lidocaine 5% 1 patch topical DAILY 30 days netarsudil 0.02% (Rhopressa) 1 drp ophthalmic (eye) BEDTIME sulfasalazine 1 g (2 x 500 mg) PO BID Ventolin HFA 90 mcg/actuation (albuterol sulfate) 2 puffs inhalation Q6H PRN NS HPI HPI Comments History of Present Illness Details 53-year-old female with seronegative rhe umatoid arthritis returns for follow-up. She is on sulfasalazine 1000 mg Twice daily and Enbrel weekly. About 1 month ago patient missed 2 of her Enbrel shots as she was in the process of moving. She requested prednisone taper which helped. Now she is back on track. She denies any joint pain except for both her knees, worse on the left. She has been using lidocaine patches which are helping. Initial history: This is a 52-year-old morbidly obese female with a past medical history of asthma, anxiety, fibromyalgia, REGINO, degenerative disc disease cervical spine presents for evaluation of bilateral hand pain and swelling. Per patient the condition started a little over a year ago with bilateral hands, wrist swelling and pain, associated with morning stiffness lasting 30 minutes. Patient would have difficulty grabbing objects. Recently been having left ankle swelling without pain. Patient states that adult dual action will provide some relief. She stated she had hives do weeks ago resolved with Zyrtec. She denies any history suggestive of Raynaud's. She continues to smoke. No history of DVT/PE. [facility] Medical History Cataract Anxiety Glaucoma Seronegative rheumatoid arthritis Hot flashes Pure hypercholesterolemia Impaired fasting glucose Numbness and tingling in left hand Obstructive sleep apnea Polyarthritis Degenerative cervical spinal stenosis Morbid obesity with body mass index (BMI) of 40.0 to 49.9 Right shoulder pain Pain and swelling of left upper extremity Dermatitis Tubular adenoma REGINO on CPAP Hives Smoker Asthma Fibromyalgia Bilateral hand pain Weakness of both hands Arthralgia Surgical History H/O neck surgery H/O colonoscopy History of History of repair of rotator cuff Family History Father Medical history unknown Mother Medical history unknown Paternal Grandfather Diabetes FH: HTN (hypertension) Social History Household Members: Family Housing: House Are you a primary healthcare architect to a significant other at home: No Do you presently have visiting nurse or other home services: No Alcohol intake: current Alcohol intake frequency: holidays/special occasions only Patient Tobacco Use Status: Current everyday Tobacco user Tobacco use type: Cigarette Cigarettes Per Day: 10 e-Cigarette/Vaping Use: Never Used Second Hand Smoke Exposure: Yes service: No Current occupational status: disabled Gender identity: Female Cognitive needs: No Hearing needs: No Vision needs: No Review of Systems Musc Reports arthralgias and Reports stiffness Physical Exam Vital Signs: Last Vital Signs Pulse 89 04/28/23 13:35 BP 134/62 04/28/23 13:35 Pulse Ox 97 04/28/23 13:35 Oxygen Delivery Method Room Air 04/28/23 13:35 BMI result Body Mass Index 48.4 Const General: cooperative, healthy appearing, comfortable and no acute distress Nutritional Appearance: obese morbidly obese Orientation/consciousness: patient oriented x3 Limitations: no limitations HEENT Head: Yes normocephalic and Yes atraumatic Resp Effort & Inspection: normal respiratory effort and able to speak in complete sentences Neuro General: patient oriented x3 Extrem Other: No wrist pain with flexion extension today Negative MCP squeeze test bilateral Bilateral diffuse MCP puffiness but no tenderness Mildly reduced right hand retail store associate strength By left ankle swelling compared to the right but no active synovitis Negative MTP squeeze test bilaterally Left knee pain with full flexion and extension Assessment & Plan Assessment & Plan (1) Rheumatoid arthritis: Comment: seroneg 05/08 SSZ started 09/07 incomplete response Enbrel added 12/08 effective Code(s): M06.9 - Rheumatoid arthritis, unspecified Qualifiers: Rheumatoid arthritis location: multiple sites Rheumatoid factor presence: without rheumatoid factor Qualified Code(s): M06.09 - Rheumatoid arthritis without rheumatoid factor, multiple sites Plan: This is a 53-year-old female with seronegative rheumatoid arthritis presents for follow-up. Shes is on sulfasalazine 1000 mg Twice daily and Enbrel 50 mg once weekly. Doing well overall with no active synovitis. Her left knee pain is likely due to degenerative arthritis Continue sulfasalazine 1000 mg Twice daily and Enbrel 50 mg once weekly Labs before next visit in 3 months (2) On sulfasalazine therapy: Code(s): Z79.899 - Other usp (current) drug therapy Plan: Monitor safety labs for sulfasalazine Side effects of Enbrel were discussed with the patient in detail including increased risk of infection, demyelinating disease, reactivation of latent TB, possible increased risk of solid and skin tumors. Patient fully aware. Advised patient to seek medical care DANIELA if patient has an infect ion and advised patient to stop the medication until the infection is resolved. Plan I spent 26 minutes reviewing patient's chart, evaluating patient, ordering diagnostic workup, counseling patient and documenting in the chart Orders: Orders Complete Blood Count Auto Diff 3 Months M06.00 - Rheumatoid arthritis without rheumatoid factor, unspecified site, Z79.899 - Other usp (current) drug therapy Comprehensive Met. Panel 3 Months M06.00 - Rheumatoid arthritis without rheumatoid factor, unspecified site, Z79.899 - Other bed bug exterminator (current) drug therapy C Reactive Protein 3 Months M06.00 - Rheumatoid arthritis without rheumatoid factor, unspecified site, Z79.899 - Other bed bug exterminator (current) drug therapy Erythrocyte Sedimentation Rate 3 Months M06.00 - Rheumatoid arthritis without rheumatoid factor, unspecified site, Z79.899 - Other bed bug exterminator (current) drug therapy Coding Level of Care Code Est Pt Level 4 (11878) Diagnoses Rheumatoid arthritis of multiple sites with negative rheumatoid factor M06.09 Rheumatoid arthritis location: multiple sites Rheumatoid factor presence: without rheumatoid factor On sulfasalazine therapy Z79.899
== END 2023-04-28 13:57 | disposition home or self-care (01) ==
PROVIDERS: PCP Internal Medicine; Visit Provider Student in an Organized Health Care Education/Training Program
DX: M06.09 Rheumatoid arthritis without rheumatoid factor, multiple sites (principal); Z79.899 Other long term (current) drug therapy
CPT/HCPCS: 99214

== ENCOUNTER → 2023-04-28 13:32 | Outpatient (BNVA) | payer OTHER, SELFPAY | PROVIDERS: PCP Internal Medicine; Visit Provider Student in an Organized Health Care Education/Training Program | DX: M06.09 Rheumatoid arthritis without rheumatoid factor, multiple sites (principal); Z79.899 Other long term (current) drug therapy | CPT/HCPCS: 99212 ==

== ENCOUNTER 2023-05-21 08:14 | Outpatient (AMB) | payer OTHER, SELFPAY ==
--- NOTE | 2023-05-21 08:20 | A.OFFVIS_ITS ---
Intake Vital Signs 05/21/23 08:33 Height 5 ft 4 in Weight 288 lb 12.889 oz BMI 49.6 BP 144/78 H Blood Pressure Location Rt brachial Position Sitting Pulse 114 H Pulse Source Pulse Oximeter Pulse Oximetry (%) 96 Oxygen Delivery Method Room Air Intake Visit Reasons: Lt Knee Pain/CM Intake Note: Pt seen today for L knee, foot and ankle pain/swelling since Thursday. Requesting refill for Sulfasalazine Network Consultant Required: No Accompanied by: Self / Same As Patient Allergies tramadol Allergy (Severe, Verified 05/21/23 08:35) n/v Penicillins [PENICILLINS] Allergy (Intermediate, Verified 05/21/23 08:35) HIVES Medication List - Last Reconciled 05/21/23 by Phil Peters MD brimonidine 0.2% 1 drp ophthalmic (eye) Q8H cetirizine (Zyrtec) 10 mg PO DAILY cholecalciferol (vitamin D3) 50 mcg PO DAILY 90 days Enbrel SureClick (etanercept) 50 mg subcut QWEEK NS fluticasone propionate 110 mcg/actuation (Flovent HFA) 2 puffs inhalation BID 30 days folic acid 1 mg PO DAILY ibuprofen (Advil) 200 mg PO Q6H PRN ibuprofen-acetaminophen 125-250 mg (Advil Dual Action) 3 tabs PO ONCE PRN latanoprost 0.005% 1 drp ophthalmic (eye) QPM lidocaine 5% 1 patch topical DAILY 30 days netarsudil 0.02% (Rhopressa) 1 drp ophthalmic (eye) BEDTIME sulfasalazine 1 g (2 x 500 mg) PO BID Ventolin HFA 90 mcg/actuation (albuterol sulfate) 2 puffs inhalation Q6H PRN NS HPI HPI Comments History of Present Illness Details 53-year-old female with seronegative rhe umatoid arthritis returns for follow-up. She is on sulfasalazine 1000 mg Twice daily and Enbrel weekly. She states that she finished her prednisone taper about 2 weeks ago. She states that she has has been having bilateral knee pain, worse on the left, as well as bilateral ankle and feet swelling, worse on the left. Initial history: This is a 52-year-old morbidly obese female with a past medical history of asthma, anxiety, fibromyalgia, REGINO, degenerative disc disease cervical spine presents for evaluation of bilateral hand pain and swelling. Per patient the condition started a little over a year ago with bilateral hands, wrist swelling and pain, associated with morning stiffness lasting 30 minutes. Patient would have difficulty grabbing objects. Recently been having left ankle swelling without pain. Patient states that adult dual action will provide some relief. She stated she had hives do weeks ago resolved with Zyrtec. She denies any history suggestive of Raynaud's. She continues to smoke. No history of DVT/PE. [facility] Medical History Cataract Anxiety Glaucoma Seronegative rheumatoid arthritis Hot flashes Pure hypercholesterolemia Impaired fasting glucose Numbness and tingling in left hand Obstructive sleep apnea Polyarthritis Degenerative cervical spinal stenosis Morbid obesity with body mass index (BMI) of 40.0 to 49.9 Right shoulder pain Pain and swelling of left upper extremity Dermatitis Tubular adenoma REGINO on CPAP Hives Smoker Asthma Fibromyalgia Bilateral hand pain Weakness of both hands Arthralgia Surgical History H/O neck surgery H/O colonoscopy History of History of repair of rotator cuff Family History Father Medical history unknown Mother Medical history unknown Paternal Grandfather Diabetes FH: HTN (hypertension) Social History Household Members: Family Housing: House Are you a primary care program director to a significant other at home: No Do you presently have visiting nurse or other home services: No Alcohol intake: current Alcohol intake frequency: holidays/special occasions only Patient Tobacco Use Status: Current everyday Tobacco user Tobacco use type: Cigarette Cigarettes Per Day: 10 e-Cigarette/Vaping Use: Never Used Second Hand Smoke Exposure: Yes service: No Current occupational status: disabled Gender identity: Female Cognitive needs: No Hearing needs: No Vision needs: No Review of Systems Musc Reports arthralgias, Reports joint swelling and Reports stiffness Physical Exam Vital Signs: Last Vital Signs Pulse 114 H 05/21/23 08:33 BP 144/78 H 05/21/23 08:33 Pulse Ox 96 05/21/23 08:33 Oxygen Delivery Method Room Air 05/21/23 08:33 BMI result Body Mass Index 49.6 Const General: cooperative, healthy appearing, comfortable and no acute distress Nutritional Appearance: obese morbidly obese Orientation/consciousness: patient oriented x3 Limitations: no limitations HEENT Head: Yes normocephalic and Yes atraumatic Resp Effort & Inspection: normal respiratory effort and able to speak in complete sentences Neuro General: patient oriented x3 Extrem Other: No wrist pain with flexion extension today Negative MCP squeeze test bilateral Bilateral diffuse MCP puffiness but no tenderness Mildly reduced right hand home health aide strength Bilateral ankle and feet swelling Left ankle tenderness anteriorly Negative MTP squeeze test bilaterally Left knee pain with full flexion and extension Office Procedures Joint Injection/Drain Joint Injection/Drain Primary Site: left knee Prep: site was prepped using sterile technique and ethochloride spray was applied Injected: 40 mg of, Kenalog and other (2 mL of 1% lidocaine) Approach Used: medial parapatellar Procedure: The patient tolerated the procedure well Coding Details: With the patient's consent the left knee was prepped with ChloraPrep and alcohol. The skin was anesthetized with 2 cc of 1% lidocaine. The knee was then injected with 40 mg of triamcinolone and 2 cc of I % lidocaine. The patient tolerated the procedure with no immediate adverse effects. 72640 - Large joint Procedure code (CPT) selection complete Assessment & Plan Assessment & Plan (1) Rheumatoid arthritis: Comment: seroneg 05/08 SSZ started 09/07 incomplete response Enbrel added 12/08 effective Code(s): M06.9 - Rheumatoid arthritis, unspecified Qualifiers: Rheumatoid arthritis location: multiple sites Rheumatoid factor presence: without rheumatoid factor Qualified Code(s): M06.09 - Rheumatoid arthritis without rheumatoid factor, multiple sites Plan: This is a 53-year-old female with seronegative rheumatoid arthritis presents for follow-up. Shes is on sulfasalazine 1000 mg Twice daily and Enbrel 50 mg once weekly. Patient was on a prednisone taper that was completed about 2 weeks ago. States she presents complaining of bilateral knee pain bilateral ankle and feet pain and swelling. With patient's consent, left knee was injected with Kenalog today. Will advance sulfasalazine to 1500 mg Twice daily Continue Enbrel 50 mg weekly Labs before next visit in 8 weeks Labs before next visit in 8 weeks (2) On sulfasalazine therapy: Code(s): Z79.899 - Other long-term (current) drug therapy Plan: Monitor safety labs for sulfasalazine Side effects of Enbrel were discussed with the patient in detail including increased risk of infection, demyelinating disease, reactivation of latent TB, possible increased risk of solid and skin tumors. Patient fully aware. Advised patient to seek medical care DANIELA if patient has an infection and advised patient to stop the medication until the infection is resolved. Plan I spent 26 minutes reviewing patient's chart, evaluating patient, ordering diagnostic workup, counseling patient and documenting in the chart Orders: Orders Complete Blood Count Auto Diff 8 Weeks M06.00 - Rheumatoid arthritis without rheumatoid factor, unspecified site, Z79.899 - Other middle or intermediate school principal (current) drug therapy AMB Joint Injection/Aspiration Today M06.00 - Rheumatoid arthritis without rheumatoid factor, unspecified site Comprehensive Met. Panel 8 Weeks M06.00 - Rheumatoid arthritis without rheumatoid factor, unspecified site, Z79.899 - Other long-term (current) drug therapy C Reactive Protein 8 Weeks M06.00 - Rheumatoid arthritis without rheumatoid factor, unspecified site, Z79.899 - Other middle or intermediate school principal (current) drug therapy Erythrocyte Sedimentation Rate 8 Weeks M06.00 - Rheumatoid arthritis without rheumatoid factor, unspecified site, Z79.899 - Other long-term (current) drug therapy Medications: Changed From sulfasalazine 1 g (2 x 500 mg) PO BID 360 tabs 1RF To sulfasalazine 1.5 grams (3 x 500 mg) PO BID 360 tabs 0RF Coding Level of Care Code Est Pt Level 4 (27139) Diagnoses Rheumatoid arthritis of multiple sites with negative rheumatoid factor M06.09 Rheumatoid arthritis location: multiple sites Rheumatoid factor presence: without rheumatoid factor On sulfasalazine therapy Z79.899 CPT Codes Coding - 20425 Large joint: 53790 - Large joint ([id number])
[2023-05-21 08:33] VITALS: BP 144/78; PULSE 114; O2SAT 96; BMI 49.6
== END 2023-05-21 08:59 | disposition home or self-care (01) ==
PROVIDERS: PCP Internal Medicine; Visit Provider Student in an Organized Health Care Education/Training Program
DX: M06.09 Rheumatoid arthritis without rheumatoid factor, multiple sites (principal); Z79.899 Other long term (current) drug therapy; M25.562 Pain in left knee
CPT/HCPCS: 20610; 99214

== ENCOUNTER → 2023-05-21 08:14 | Outpatient (BNVA) | payer OTHER, SELFPAY | PROVIDERS: PCP Internal Medicine; Visit Provider Student in an Organized Health Care Education/Training Program | DX: M06.09 Rheumatoid arthritis without rheumatoid factor, multiple sites (principal); Z79.899 Other long term (current) drug therapy | CPT/HCPCS: 20610; 99212 ==

== ENCOUNTER 2023-06-11 09:24 | Outpatient (AMB) | payer OTHER, SELFPAY ==
--- NOTE | 2023-06-11 09:26 | MHC.PC.OV ---
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 Allergies tramadol Allergy (Severe, Verified 07/29/23 13:42) n/v Penicillins [PENICILLINS] Allergy (Intermediate, Verified 07/29/23 13:42) HIVES Medication List - Last Reconciled 06/11/23 by Bunny Hdez MD brimonidine 0.2% 1 drp ophthalmic (eye) Q8H cetirizine (Zyrtec) 10 mg PO DAILY cholecalciferol (vitamin D3) 50 mcg PO DAILY 90 days Enbrel SureClick (etanercept) 50 mg subcut QWEEK NS fluticasone propionate 110 mcg/actuation (Flovent HFA) 2 puffs inhalation BID 30 days folic acid 1 mg PO DAILY ibuprofen (Advil) 200 mg PO Q6H PRN ibuprofen-acetaminophen 125-250 mg (Advil Dual Action) 3 tabs PO ONCE PRN latanoprost 0.005% 1 drp ophthalmic (eye) QPM lidocaine 5% 1 patch topical DAILY 30 days netarsudil 0.02% (Rhopressa) 1 drp ophthalmic (eye) BEDTIME sulfasalazine 1.5 grams (3 x 500 mg) PO BID Ventolin HFA 90 mcg/actuation (albuterol sulfate) 2 puffs inhalation Q6H PRN NS Tobacco use date assessed: 06/11/23 Dental Screening Dental Screen Date: 06/11/23 Did you have a dental visit in the last 12 months?: Yes Did you have a dental problem in the last 6 months where you did not have access to dental care?: No Was dental information given to patient?: Patient has dentist HPI hyperlipidemia, OA, RA, asthma, IFG HPI Details Patient comes in today for her follow up visit States that she has been experiencing increased bilateral knee pain (worse on the left side) as well as bilateral ankle and feet swelling (also worse on the left side) despite her current meds (is on Sulfasalazine and Enbrel) and continues to follow-up with Rheumatology for these issues States that she just finished her prednisone taper a few weeks ago with some relief She denies any fever, headaches or dizziness Denies any chest pains, no shortness of breath No nausea / vomiting, no abdominal pain No change in bowel habits noted She has not had any follow-up done recently She is also requesting for some prescription again to help her quit smoking [facility] Medical History Cataract Anxiety Glaucoma Seronegative rheumatoid arthritis Hot flashes Pure hypercholesterolemia Impaired fasting glucose Numbness and tingling in left hand Obstructive sleep apnea Polyarthritis Degenerative cervical spinal stenosis Morbid obesity with body mass index (BMI) of 40.0 to 49.9 Right shoulder pain Pain and swelling of left upper extremity Dermatitis Tubular adenoma REGINO on CPAP Hives Smoker Asthma Fibromyalgia Bilateral hand pain Weakness of both hands Arthralgia Surgical History H/O neck surgery H/O colonoscopy History of History of repair of rotator cuff Family History Father Medical history unknown Mother Medical history unknown Paternal Grandfather Diabetes FH: HTN (hypertension) Social History Household Members: Family Housing: House Are you a primary critical care technician to a significant other at home: No Do you presently have visiting nurse or other home services: No Alcohol intake: current Alcohol intake frequency: holidays/special occasions only Patient Tobacco Use Status: Current everyday Tobacco user Tobacco use type: Cigarette Cigarettes Per Day: 10 e-Cigarette/Vaping Use: Never Used Second Hand Smoke Exposure: Yes service: No Current occupational status: disabled Gender identity: Female Cognitive needs: No Hearing needs: No Vision needs: No Questionnaire PHQ-9 Over the last 2 weeks, how often have you been bothered by any of the following problems? 1. Little interest or pleasure in doing things: several days 2. Feeling down, depressed, or hopeless: several days 3. Trouble falling or staying asleep, or sleeping too much: several days 4. Feeling tired or having little energy: several days 5. Poor appetite or overeating: not at all 6. Feeling bad about yourself - or that you are a failure or have let yourself or your family down: several days 7. Trouble concentrating on things, such as reading the newspaper or watching television: not at all 8. Moving or speaking so slowly that other people could have noticed. Or the opposite - being so fidgety or restless that you have been moving around a lot more than usual: not at all 9. Thoughts that you would be better off or of hurting yourself in some way: several days Total score: 6 Depression Screening Interpretation: Positive Depression Screening Follow-up: Existing condition and Community Mental Health Worker F/U Depression Screening Done: Yes 87178 - PHQ-9 Billing: Yes Source: Developed by Drs. Alberto Gaytan, Wendy Hernandez, Tonny Ward and colleagues, with an educational di from [employer]. Thrive Questionnaire Date Thrive assessed: 06/11/23 I am a: Patient What is your living situation today?: I have a steady place to live Within the past 12 months, did the food you bought not last and you didn't have the money to get more?: Never true Within the past 12 months, did you worry whether your food would run out before you got money to buy more?: Never true Do you have trouble paying for medicines?: No Do you have trouble getting transportation to medical appointments?: No Do you have trouble paying your heating and electricity bill?: No Do you have trouble taking care of your child, family member or friend?: No Do you have trouble with day-to-day activities such as bathing, preparing meals, shopping, managing finances, etc.?: No Are you currently unemployed and looking for a job?: No Are you interested in more education?: No Please select the resources that you would like help with: None Currently or been in a relationship where the following occur: no concerns reported THRIVE Score: 0 AUDIT C Alcohol Use Questionnaire (AUDIT-C) 1. How often do you have a drink containing alcohol?: Never 3. How often do you have six or more drinks on one occasion?: Never Total Score: 0 Score Reviewed/Action Taken: Yes VIPUL-7 AMB Questionnaire VIPUL-7 Date VIPUL - 7 assessed: 06/11/23 Feeling nervous, anxious, or on edge: 2 = More than half the days Not being able to stop or control worryin = More than half the days Worrying too much about different things: 0 = Not at all Trouble relaxin = Not at all Being so restless that it is hard to sit still: 1 = Several days Becoming easily annoyed or irritable: 3 = Nearly every day Feeling afraid as if something awful might happen: 0 = Not at all Total VIPUL-7 score (0-4 normal; 5-9 mild; 10-14 moderate; 15-21 severe): 8 Source: Developed by Drs. Alberto Gaytan, Wendy Hernandez, Tonny Ward and colleagues, with an educational di from [employer]. VIPUL-7 Assessment Billing VIPUL-7 Assessment Tool: VIPLU-7 Assessment 30706 Review of Systems Const Reports body aches, Reports difficulty sleeping, Reports fatigue, Denies fever(s) and Denies headache(s) ENT Denies dysphagia, Denies dizziness, Denies otalgia, Denies headache(s), Reports neck pain, Denies odynophagia and Denies sore throat Card Denies chest pain, Denies palpitations and Denies dyspnea Resp Denies chest congestion, Denies cough, Denies dyspnea and Denies wheezing GI Denies abdominal pain, Denies constipation, Denies dysphagia, Denies heartburn, Denies diarrhea, Denies nausea, Denies odynophagia and Denies vomiting Denies difficulty voiding, Denies nocturia, Denies dysuria and Denies urinary urgency Musc Reports back pain, Reports myalgias (diffuse), Reports arthralgias (over multiple joints; pain over both wrists and hands & knees), Reports neck pain and Reports stiffness (over multiple joints) Skin/Breast Denies rash Neuro Denies dizziness and Denies headache(s) Endo Reports fatigue and Denies palpitations Aller/Immun Denies wheezing Physical exam (Primary Care) Vital Signs: Last Vital Signs Pulse 91 06/11/23 09:27 BP 132/80 06/11/23 09:27 Pulse Ox 98 06/11/23 09:27 Oxygen Delivery Method Room Air 06/11/23 09:27 BMI result Body Mass Index 48.1 Tobacco/Smoking Status: Tobacco use Status Tobacco use date assessed 06/11/23 06/11/23 09:28 Patient Tobacco Use Status Current everyday Tobacco 06/11/23 09:28 Tobacco use type Cigarette 04/25/24 09:28 e-Cigarette/Vaping Use Never Used 06/11/23 09:28 PHQ-9: PHQ-9 Score PHQ-9: Total score 6 06/16/23 04:01 Depression Screening Interpretation: Positive Depression Screening Follow-up: Existing condition and Community Mental Health Worker F/U Thrive Assessment: Date of Thrive Assessment Date Thrive assessed 06/11/23 06/11/23 09:28 Currently or been in a relationship where the following occur: no concerns reported Const General: no acute distress and alert HENMT Ears: TM's normal bilaterally and EAC's normal Throat: Yes posterior oropharynx normal and Yes tonsils normal (no TP congestion noted) Neck Neck: Yes no lymphadenopathy and Yes supple Thyroid: Thyroid normal Resp Auscultation: clear to auscultation bilaterally, no rales, no wheezes and diminished lung sounds (slightly) diffuse Cardio Rate: regular rate Rhythm: regular rhythm Heart sounds: no murmurs GI Palpation (GI): Soft to palpation and nontender Auscultation: normal bowel sounds General: Yes no CVA tenderness Back/Spine/Pelvis Back: no CVA tenderness Cervical Spine: Cervical spine tenderness Thoracic/Lumbar Spine: lumbar spinal tenderness Skin Rashes: no rashes Extrem General: Yes no clubbing, cyanosis or edema Right upper extremity: wrist Details: tenderness; no swelling Left upper extremity: wrist ((+) Phalen's test) Right lower extremity: hip/thigh Details: tenderness Location: of the hip and knee Details: tenderness Left lower extremity: hip/thigh Details: tenderness Location: of the hip and knee Details: tenderness Assessment and Plan Assessment & Plan (1) Pure hypercholesterolemia: Code(s): E78.00 - Pure hypercholesterolemia, unspecified Plan: Patient has not had any follow up labs done recently Reinforced low cholesterol diet Will recheck her labs and fasting lipids in 4 months for follow up (2) Impaired fasting glucose: Code(s): R73.01 - Impaired fasting glucose Plan: Her HgbA1c was at 5.8% when last checked in January 2023 Reinforced low calorie/low carb diet Advised again that exercise and losing weight can also help but she states again that it is impossible for her to do any exercise given her current conditions Will recheck her FBS and HgbA1c again in 4 months for follow up (3) Asthma: Code(s): J45.909 - Unspecified asthma, uncomplicated Qualifiers: Asthma complication type: uncomplicated Asthma persistence: intermittent Asthma severity: mild Qualified Code(s): J45.20 - Mild intermittent asthma, uncomplicated Plan: Appears stable and better controlled lately Continue Flovent HFA 110 mcg 2 inhalations BID, Montelukast 10 mg QD and Albuterol HFA 2 inhalations every 6 hours as needed (4) Seronegative rheumatoid arthritis: Code(s): M06.00 - Rheumatoid arthritis without rheumatoid factor, unspecified site Plan: She was seen by rheumatology (Dr. Lucero) last year and no additional recommendations were provided/offered Is now seeing [facility] Rheumatology - was worked up for inflammatory arthritis and diagnosed with seronegative rheumatoid arthritis Patient declined offer to start her on Methotrexate previously due to fear of side effects and was started instead on Sulfasalazine 1 gm BID She was determined to have inadequate response to Tx at her last visit and was started additionally on Enbrel - she has been on Enbrel and Sulfasalazine for the past few months Follow-up with rheumatology as scheduled (5) Fibromyalgia: Code(s): M79.7 - Fibromyalgia Plan: She was again encouraged to continue with regular exercise and physical activity (as tolerated) to help manage her fibromyalgia symptoms better Was on Pregabalin 150 mg TID for a few months but states that it has not helped (6) Polyarthritis: Code(s): M13.0 - Polyarthritis, unspecified Plan: Follow up with [facility] and with [facility] rheumatology as scheduled Has received joint injections in the past but patient states that they did not help much although she recently started back up with pain management again and received some injections into her knee a couple of days ago, which she feels have not helped much Has been advised by orthopedics that they will only consider scheduling her for joint replacement surgery if she can lose weight and get her BMI down to at least <45 - patient reports that she can hardly do any activity or exercise and is not optimistic that she can lose any significant amount of weight She was recently diagnosed with RA and is being treated/managed by rheumatology for this (7) Chronic hip pain, bilateral: Code(s): M25.551 - Pain in right hip; M25.552 - Pain in left hip; G89.29 - Other chronic pain Plan: MRI of the hips done back in 2012 revealed minimal degenerative arthritis in the left hip and mild degenerative arthritis in the right hip Per request, was sent for repeat MRI of the hips for further evaluation of her increasing bilateral hip pain but this was denied by insurance Follow up with [facility] as scheduled (8) Degenerative cervical spinal stenosis: Comment: S/P anterior discectomy Code(s): M48.02 - Spinal stenosis, cervical region Plan: Patient reports (+) improvement of pain in her left wrist but still has weakness and on and off pain radiating down her left arm at times Follow up with neurosurgery as scheduled (9) Hives: Code(s): L50.9 - Urticaria, unspecified Plan: Continue Cetirizine 10 mg QD PRN (10) Vitamin D deficiency: Code(s): E55.9 - Vitamin D deficiency, unspecified Plan: Continue Vitamin D3 2000 units QD (11) Obstructive sleep apnea: Code(s): G47.33 - Obstructive sleep apnea (adult) (pediatric) Plan: She was scheduled for a repeat study at [facility] in December 2021 but states that she was recently advised by sleep specialist that it is not worth doing as it is not going to provide any additional useful information at this time Follow up with sleep medicine as scheduled (12) Glaucoma: Code(s): H40.9 - Unspecified glaucoma Qualifiers: Glaucoma type: unspecified Laterality: bilateral Qualified Code(s): H40.9 - Unspecified glaucoma Plan: Continue Rhopressa 1 drop into each eye Q HS, Latanoprost 0.005% 1 drop into each eye Q PM and Brimonidine 0.2% 1 drop into each eye TID Follow up with ophthalmology as scheduled (13) Anxiety: Code(s): F41.9 - Anxiety disorder, unspecified Plan: Patient feels that she has been having issues with anxiety lately - thinks she has PTSD Was seeing therapist at [facility] in the past but states that her therapist left the area months ago and she has not seen anybody since She does not want to go to [facility] as her mother supposedly works there Have offered to refer her back to [facility] but she declined at this time - states that she would like to think about it a little more and will call for referral if she makes up her mind to go back to [facility] (14) Smoker: Code(s): F17.200 - Nicotine dependence, unspecified, uncomplicated Plan: Counseled again on smoking cessation Per request, will start her on nicotine patches to help her quit smoking (15) Morbid obesity with body mass index (BMI) of 40.0 to 49.9: Code(s): E66.01 - Morbid (severe) obesity due to excess calories Plan: Reinforced diet/exercise as tolerated/lose weight but patient states that exercise is unrealistic given her current multiple conditions Plan Follow up in 4 months Orders: Orders Lipid Panel 4 Months E78.00 - Pure hypercholesterolemia, unspecified Complete Blood Count Auto Diff 4 Months D64.9 - Anemia, unspecified Comprehensive [place]. Panel Fast 4 Months E78.00 - Pure hypercholesterolemia, unspecified Hemoglobin A1c 4 Months E11.9 - Type 2 diabetes mellitus without complications Medications: New nicotine 1 patch transdermal DAILY 7 ea 0RF 7 days F17.200 - Nicotine dependence, unspecified, uncomplicated nicotine 1 patch transdermal Q24H 28 ea 5RF 28 days F17.200 - Nicotine dependence, unspecified, uncomplicated nicotine 1 patch transdermal DAILY 7 ea 0RF 7 days F17.200 - Nicotine dependence, unspecified, uncomplicated Coding Level of Care Code Est Pt Level 4 (78507) Diagnoses Pure hypercholesterolemia E78.00 Impaired fasting glucose R73.01 Mild intermittent asthma without complication J45.20 Asthma complication type: uncomplicated Asthma persistence: intermittent Asthma severity: mild Seronegative rheumatoid arthritis M06.00 Fibromyalgia M79.7 Polyarthritis M13.0 Chronic hip pain, bilateral M25.551; M25.552; G89.29 Degenerative cervical spinal stenosis M48.02 Hives L50.9 Vitamin D deficiency E55.9 Obstructive sleep apnea G47.33 Glaucoma of both eyes, unspecified glaucoma type H40.9 Glaucoma type: unspecified Laterality: bilateral Anxiety F41.9 Smoker F17.200 Morbid obesity with body mass index (BMI) of 40.0 to 49.9 E66.01 Additional Codes VIPUL-7 Assessment Billing - VIPUL-7 Assessment Tool: VIPUL-7 Assessment 18101 ([id number])
[2023-06-11 09:27] VITALS: BP 132/80; PULSE 91; O2SAT 98; BMI 48.1
== END 2023-06-11 10:18 | disposition home or self-care (01) ==
PROVIDERS: PCP Internal Medicine; Visit Provider Internal Medicine
DX: E78.00 Pure hypercholesterolemia, unspecified (principal); E66.01 Morbid (severe) obesity due to excess calories; M06.00 Rheumatoid arthritis without rheumatoid factor, unspecified site; Z68.42 Body mass index [BMI] 45.0-49.9, adult; R73.01 Impaired fasting glucose; J45.20 Mild intermittent asthma, uncomplicated; M79.7 Fibromyalgia; M13.0 Polyarthritis, unspecified; M25.551 Pain in right hip; M25.552 Pain in left hip; G89.29 Other chronic pain; M48.02 Spinal stenosis, cervical region; L50.9 Urticaria, unspecified; E55.9 Vitamin D deficiency, unspecified; G47.33 Obstructive sleep apnea (adult) (pediatric); H40.9 Unspecified glaucoma; F41.9 Anxiety disorder, unspecified; F17.200 Nicotine dependence, unspecified, uncomplicated
CPT/HCPCS: 99214

== ENCOUNTER 2023-07-27 10:44 | Outpatient (REF) | payer OTHER, SELFPAY ==
[2023-07-27 11:00] LABS: MANUAL DIFF FLAG NO
[2023-07-27 11:56] LABS: Basophils Absolute Auto 0.1 X10*3/uL (0.0-0.2); Basophils Percent Auto 0.8 % (0-2); Eosinophils Absolute Auto 0.1 X10*3/uL (0.0-0.4); Eosinophils Percent Auto 1.3 % (0-4); Hematocrit 46.2 % (37.0-47.0); Hemoglobin 15.4 g/dl (12.0-16.0); Imm Gran Abs Auto 0.02 X10*3/uL (0.00-0.03); Imm Gran Pct Auto 0.3 % (0.0-0.4); Lymphocytes Absolute Auto 3.3 X10*3/uL (1.2-4.9); Lymphocytes Percent Auto 43.4 % (20-40); Mean Corpuscular HGB Conc 33.3 g/dl (31.0-35.0); Mean Platelet Volume 11.8 fL (9.4-12.3); Monocytes Absolute Auto 0.7 X10*3/uL (0.1-1.2); Monocytes Percent Auto 9.8 % (2-11); Neutrophils Absolute Auto 3.4 x10*3/uL (2.0-8.3); Neutrophils Percent Auto 44.4 % (45-73); Platelet Count 205 X10*3/uL (160-400); Red Blood Count 4.97 X10*6/uL (4.20-5.50); Red Cell Distribution Width 15.6 % (11.0-16.0); White Blood Count 7.6 X10*3/uL (4.8-10.8)
[2023-07-27 12:36] LABS: Erythrocyte Sedimentation Rate 11 MM/HR (0-20)
[2023-07-27 12:53] LABS: Alanine Aminotransferase 15 U/L (0-31); Albumin Level 4.3 g/dL (3.5-5.0); Alkaline Phosphatase 71 U/L (39-117); Anion Gap 10 (12-20); Aspartate Amino Transferase 14 U/L (5-31); Bilirubin Total 0.5 mg/dL (0.0-1.0); Blood Urea Nitrogen 10 mg/dL (9-16); C Reactive Protein 0.51 mg/dL (< or = 0.50); Calcium 9.9 mg/dL (8.4-10.2); Carbon Dioxide 30 mmol/L (22-29); Chloride 106 mmol/L (96-108); Estimated Glomerular Filt Rate > 60; Glucose Random 95 mg/dL (60-115); Potassium 4.3 mmol/L (3.3-5.1); Sodium 142 mmol/L (135-145); Total Protein 7.3 g/dL (6.5-8.0)
== END 2023-07-27 10:45 | disposition home or self-care (01) ==
LOC: HO.LAB 10:44
PROVIDERS: PCP Internal Medicine; Visit Provider Student in an Organized Health Care Education/Training Program
DX: M06.00 Rheumatoid arthritis without rheumatoid factor, unspecified site (principal); Z79.899 Other long term (current) drug therapy
CPT/HCPCS: 36415; 80053; 85025; 85652; 86140

== ENCOUNTER 2023-07-29 13:27 | Outpatient (AMB) | payer OTHER, SELFPAY ==
[2023-07-29 13:35] VITALS: BP 122/64; PULSE 100; O2SAT 97; BMI 47.3
--- NOTE | 2023-07-29 13:35 | MHC.OFFVIS ---
Vital Signs 07/29/23 13:35 Height 5 ft 4 in Weight 275 lb 9.245 oz BMI 47.3 BP 122/64 Blood Pressure Location Rt brachial Position Sitting Pulse 100 Pulse Source Pulse Oximeter Pulse Oximetry (%) 97 Oxygen Delivery Method Room Air Intake Visit Reasons: RA Intake Note: Patient last seen 05/21/23, presents today for RA follow up. Reports increase in pain, states meds are not working. Access Clerk Required: No Accompanied by: Self / Same As Patient Allergies tramadol Allergy (Severe, Verified 07/29/23 13:42) n/v Penicillins [PENICILLINS] Allergy (Intermediate, Verified 07/29/23 13:42) HIVES Medication List - Last Reconciled 07/29/23 by Phil Peters MD brimonidine 0.2% 1 drp ophthalmic (eye) Q8H cetirizine (Zyrtec) 10 mg PO DAILY cholecalciferol (vitamin D3) 50 mcg PO DAILY 90 days fluticasone propionate 110 mcg/actuation (Flovent HFA) 2 puffs inhalation BID 30 days folic acid 1 mg PO DAILY latanoprost 0.005% 1 drp ophthalmic (eye) QPM lidocaine 5% 1 patch topical DAILY 30 days netarsudil 0.02% (Rhopressa) 1 drp ophthalmic (eye) BEDTIME nicotine 1 patch transdermal DAILY 7 days nicotine 1 patch transdermal Q24H 28 days nicotine 1 patch transdermal DAILY 7 days sulfasalazine 1.5 grams (3 x 500 mg) PO BID Ventolin HFA 90 mcg/actuation (albuterol sulfate) 2 puffs inhalation Q6H PRN NS HPI Comments Details: 53-year-old female with seronegative rheumatoid arthritis returns for follow-up. She is on sulfasalazine 1500 mg Twice daily and Enbrel weekly. States that she feels worse overall. Feels that the medications are no longer working. She continues to have pain in her knees, wrists, hands, ankles and feet. Morning stiffness lasting more than an hour. Intermittent swelling of her joints. Left knee injection done last visit was not helpful. Wonders about Celebrex. Initial history: This is a 52-year-old morbidly obese female with a past medical history of asthma, anxiety, fibromyalgia, REGINO, degenerative disc disease cervical spine presents for evaluation of bilateral hand pain and swelling. Per patient the condition started a little over a year ago with bilateral hands, wrist swelling and pain, associated with morning stiffness lasting 30 minutes. Patient would have difficulty grabbing objects. Recently been having left ankle swelling without pain. Patient states that adult dual action will provide some relief. She stated she had hives do weeks ago resolved with Zyrtec. She denies any history suggestive of Raynaud's. She continues to smoke. No history of DVT/PE. [facility] Medical History Cataract Anxiety Glaucoma Seronegative rheumatoid arthritis Hot flashes Pure hypercholesterolemia Impaired fasting glucose Numbness and tingling in left hand Obstructive sleep apnea Polyarthritis Degenerative cervical spinal stenosis Morbid obesity with body mass index (BMI) of 40.0 to 49.9 Right shoulder pain Pain and swelling of left upper extremity Dermatitis Tubular adenoma REGINO on CPAP Hives Smoker Asthma Fibromyalgia Bilateral hand pain Weakness of both hands Arthralgia Surgical History H/O neck surgery H/O colonoscopy History of History of repair of rotator cuff Family History Father Medical history unknown Mother Medical history unknown Paternal Grandfather Diabetes FH: HTN (hypertension) Social History Household Members: Family Housing: House Are you a primary rn acute care to a significant other at home: No Do you presently have visiting nurse or other home services: No Alcohol intake: current Alcohol intake frequency: holidays/special occasions only Patient Tobacco Use Status: Current everyday Tobacco user Tobacco use type: Cigarette Cigarettes Per Day: 10 e-Cigarette/Vaping Use: Never Used Second Hand Smoke Exposure: Yes service: No Current occupational status: disabled Gender identity: Female Cognitive needs: No Hearing needs: No Vision needs: No Female Reproductive History Menstrual Total pregnancies: 2 Number of Living Children: 0 Ab induced: 2 Date of last pap smear: 12/05/18 (neg pap and hpv) Date of Mammogram: 03/12/22 ([facility]ad 1) Review of Systems Musc Reports arthralgias, Reports joint swelling and Reports stiffness Physical Exam Vital Signs: Last Vital Signs Pulse 100 07/29/23 13:35 BP 122/64 07/29/23 13:35 Pulse Ox 97 07/29/23 13:35 Oxygen Delivery Method Room Air 07/29/23 13:35 BMI result Body Mass Index 47.3 Const General: cooperative, healthy appearing, comfortable and no acute distress Nutritional Appearance: obese morbidly obese Orientation/consciousness: patient oriented x3 Limitations: no limitations HEENT Head: Yes normocephalic and Yes atraumatic Resp Effort & Inspection: normal respiratory effort and able to speak in complete sentences Neuro General: patient oriented x3 Extrem Other: No wrist tenderness but pain with full flexion and extension bilaterally Negative MCP squeeze test bilaterally Bilateral diffuse MCP puffiness but no tenderness Mildly reduced right hand folder seamer automatic strength Bilateral ankle tenderness bilateral knee pain with any range of motion Negative MTP squeeze test bilaterally Assessment & Plan Assessment & Plan (1) Rheumatoid arthritis: Comment: seroneg 05/08 Refused Methotrexate SSZ started 09/07 incomplete response Enbrel added 12/08 Code(s): M06.9 - Rheumatoid arthritis, unspecified Category: Medical Qualifiers: Rheumatoid arthritis location: multiple sites Rheumatoid factor presence: without rheumatoid factor Qualified Code(s): M06.09 - Rheumatoid arthritis without rheumatoid factor, multiple sites Plan: This is a 53-year-old female with seronegative rheumatoid arthritis presents for follow-up. Shes is on sulfasalazine 1500 mg Twice daily and Enbrel 50 mg once weekly. She continues to have multiple tender joints. Morning stiffness more than 1 hour, elevated inflammatory markers. Will need to change DMARDs. Will DC Enbrel Discussed risks and benefits of Actemra. Patient agreed to proceed. She denied history of diverticulitis. Start prior authorization of Actemra Continue sulfasalazine 1500 mg Twice daily Patient wonders about NSAID use. Discussed term risks of NSAID use including GI, nephro, cardiac toxicity, elevated BP, patient would like to try, she will keep its use to a minimum Start Celebrex 200 mg Twice daily p.r.n. joint pain Labs before next visit in 3 months (2) On sulfasalazine therapy: Code(s): Z79.899 - Other jail (current) drug therapy Category: Medical Plan: Monitor safety labs for sulfasalazine Side effects of Actemra were discussed with the patient in detail including increased risk of infection, demyelinating disease, reactivation of latent TB, possible increased risk of solid and skin tumors. Patient fully aware. Advised patient to seek medical care DANIELA if patient has an infection and advised patient to stop the medication until the infection is resolved. Plan I spent 26 minutes reviewing patient's chart, evaluating patient, ordering diagnostic workup, counseling patient and documenting in the chart Orders: Orders Comprehensive Met. Panel 3 Months M06.00 - Rheumatoid arthritis without rheumatoid factor, unspecified site C Reactive Protein 3 Months M06.00 - Rheumatoid arthritis without rheumatoid factor, unspecified site Complete Blood Count Auto Diff 3 Months M06.00 - Rheumatoid arthritis without rheumatoid factor, unspecified site Erythrocyte Sedimentation Rate 3 Months M06.00 - Rheumatoid arthritis without rheumatoid factor, unspecified site Medications: New celecoxib (Celebrex) 200 mg PO BID PRN 60 caps 1RF pain Coding Level of Care Code Est Pt Level 4 (96185) Diagnoses Rheumatoid arthritis of multiple sites with negative rheumatoid factor M06.09 Rheumatoid arthritis location: multiple sites Rheumatoid factor presence: without rheumatoid factor On sulfasalazine therapy Z79.899
== END 2023-07-29 14:02 | disposition home or self-care (01) ==
PROVIDERS: PCP Internal Medicine; Visit Provider Student in an Organized Health Care Education/Training Program
DX: M06.09 Rheumatoid arthritis without rheumatoid factor, multiple sites (principal); Z79.899 Other long term (current) drug therapy
CPT/HCPCS: 99214

== ENCOUNTER → 2023-07-29 13:27 | Outpatient (BNVA) | payer OTHER, SELFPAY | PROVIDERS: PCP Internal Medicine; Visit Provider Student in an Organized Health Care Education/Training Program | DX: M06.09 Rheumatoid arthritis without rheumatoid factor, multiple sites (principal); Z79.899 Other long term (current) drug therapy | CPT/HCPCS: 99212 ==

== ENCOUNTER 2023-10-23 13:06 | Outpatient (REF) | payer OTHER, SELFPAY ==
[2023-10-23 13:22] LABS: MANUAL DIFF FLAG NO
[2023-10-23 13:43] LABS: Basophils Absolute Auto 0.1 X10*3/uL (0.0-0.2); Basophils Percent Auto 1.1 % (0-2); Eosinophils Absolute Auto 0.1 X10*3/uL (0.0-0.4); Hematocrit 42.5 % (37.0-47.0); Hemoglobin 14.3 g/dl (12.0-16.0); Imm Gran Abs Auto 0.01 X10*3/uL (0.00-0.03); Imm Gran Pct Auto 0.2 % (0.0-0.4); Lymphocytes Absolute Auto 2.6 X10*3/uL (1.2-4.9); Lymphocytes Percent Auto 38.7 % (20-40); Mean Corpuscular HGB Conc 33.6 g/dl (31.0-35.0); Mean Corpuscular Hemoglobin 31.1 pg (27.0-33.0); Mean Corpuscular Volume 92.4 fL (80.0-98.0); Mean Platelet Volume 11.4 fL (9.4-12.3); Monocytes Absolute Auto 0.9 X10*3/uL (0.1-1.2); Monocytes Percent Auto 13.3 % (2-11); Neutrophils Percent Auto 44.7 % (45-73); Platelet Count 181 X10*3/uL (160-400); Red Cell Distribution Width 15.1 % (11.0-16.0); White Blood Count 6.6 X10*3/uL (4.8-10.8)
[2023-10-23 14:12] LABS: Alanine Aminotransferase 13 U/L (0-31); Albumin Level 4.1 g/dL (3.5-5.0); Alkaline Phosphatase 70 U/L (39-117); Anion Gap 10 (12-20); Aspartate Amino Transferase 13 U/L (5-31); Bilirubin Total 0.2 mg/dL (0.0-1.0); Blood Urea Nitrogen 10 mg/dL (9-16); C Reactive Protein 0.61 mg/dL (< or = 0.50); Calcium 9.4 mg/dL (8.4-10.2); Carbon Dioxide 27 mmol/L (22-29); Chloride 109 mmol/L (96-108); Estimated Glomerular Filt Rate > 60; Glucose Random 69 mg/dL (60-115); Potassium 4.5 mmol/L (3.3-5.1); Sodium 141 mmol/L (135-145); Total Protein 6.7 g/dL (6.5-8.0)
[2023-10-23 14:33] LABS: Erythrocyte Sedimentation Rate 12 MM/HR (0-20)
== END 2023-10-23 13:07 | disposition home or self-care (01) ==
LOC: HO.LAB 13:06
PROVIDERS: PCP Internal Medicine; Visit Provider Student in an Organized Health Care Education/Training Program
DX: M06.00 Rheumatoid arthritis without rheumatoid factor, unspecified site (principal)
CPT/HCPCS: 36415; 80053; 85025; 85652; 86140

== ENCOUNTER 2023-10-27 07:11 | Outpatient (REF) | payer OTHER, SELFPAY ==
[2023-10-27 07:23] LABS: MANUAL DIFF FLAG NO
[2023-10-27 07:32] LABS: Basophils Absolute Auto 0.1 X10*3/uL (0.0-0.2); Eosinophils Absolute Auto 0.1 X10*3/uL (0.0-0.4); Eosinophils Percent Auto 2.2 % (0-4); Hematocrit 43.6 % (37.0-47.0); Hemoglobin 14.2 g/dl (12.0-16.0); Imm Gran Abs Auto 0.01 X10*3/uL (0.00-0.03); Imm Gran Pct Auto 0.2 % (0.0-0.4); Lymphocytes Absolute Auto 2.7 X10*3/uL (1.2-4.9); Lymphocytes Percent Auto 42.5 % (20-40); Mean Corpuscular HGB Conc 32.6 g/dl (31.0-35.0); Mean Corpuscular Hemoglobin 30.4 pg (27.0-33.0); Mean Corpuscular Volume 93.4 fL (80.0-98.0); Mean Platelet Volume 11.3 fL (9.4-12.3); Monocytes Absolute Auto 0.7 X10*3/uL (0.1-1.2); Monocytes Percent Auto 10.7 % (2-11); Neutrophils Absolute Auto 2.7 x10*3/uL (2.0-8.3); Neutrophils Percent Auto 43.4 % (45-73); Platelet Count 183 X10*3/uL (160-400); Red Blood Count 4.67 X10*6/uL (4.20-5.50); Red Cell Distribution Width 15.3 % (11.0-16.0); White Blood Count 6.2 X10*3/uL (4.8-10.8)
[2023-10-27 07:51] LABS: Estimated Average Glucose 111 mg/dL; Hemoglobin A1c % 5.5 % (<6.0)
[2023-10-27 08:03] LABS: Appearance Urine Cloudy; Color Urine Dark Yellow; Glucose Urine UA Negative (Negative); Leukocyte Esterase Urine Negative (Negative); Nitrite Urine Negative (Negative); PH 5.5 (5.0-9.0); Specific Gravity - Urine 1.025 (1.005-1.025); UMIC TRIGGER UACC YES; Urine Blood Trace (Negative); Urine Ketones Negative (Negative); Urine Protein Negative (Neg-Trace)
[2023-10-27 08:09] LABS: Bacteria Urine 2+ (None Seen); Hyaline Casts Urine 0-2 /LPF (0-2); Squamous Epithelial Cell Urine >20 /HPF (0-2); WBC Urine 0-5 /HPF (0-5)
[2023-10-27 08:22] LABS: Alanine Aminotransferase 16 U/L (0-31); Alkaline Phosphatase 70 U/L (39-117); Anion Gap 12 (12-20); Aspartate Amino Transferase 14 U/L (5-31); Bilirubin Total 0.2 mg/dL (0.0-1.0); Blood Urea Nitrogen 14 mg/dL (9-16); Calcium 9.5 mg/dL (8.4-10.2); Carbon Dioxide 25 mmol/L (22-29); Chloride 109 mmol/L (96-108); Cholesterol 230 mg/dL (<200); Estimated Glomerular Filt Rate > 60; Glucose Fasting 115 mg/dL (60-99); HDL Cholesterol 44 mg/dL (>40); LDL Cholesterol Calculated 165 mg/dL (<100); Potassium 4.7 mmol/L (3.3-5.1); Sodium 141 mmol/L (135-145); Total Protein 6.7 g/dL (6.5-8.0); Triglycerides 105 mg/dL (<150)
[2023-10-27 08:30] LABS: TSH reflex Free T4 1.71 uIU/mL (0.32-4.0); Vitamin D 25-OH Total 38.8 ng/mL (>30)
== END 2023-10-27 07:12 | disposition home or self-care (01) ==
LOC: HO.LAB 07:11
PROVIDERS: PCP Internal Medicine; Visit Provider Internal Medicine
DX: E78.00 Pure hypercholesterolemia, unspecified (principal); D64.9 Anemia, unspecified; E11.9 Type 2 diabetes mellitus without complications; E55.9 Vitamin D deficiency, unspecified; R30.0 Dysuria
CPT/HCPCS: 36415; 80053; 80061; 81001; 82306; 83036; 84443; 85025

== ENCOUNTER 2023-10-29 09:23 | Outpatient (AMB) | payer OTHER, SELFPAY ==
[2023-10-29 09:27] VITALS: BP 130/78; PULSE 86; O2SAT 95; BMI 48.1
--- NOTE | 2023-10-29 09:27 | MHC.PC.OV ---
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: No Accompanied by: Self / Same As Patient Allergies tramadol Allergy (Severe, Verified 10/29/23 09:50) n/v Penicillins [PENICILLINS] Allergy (Intermediate, Verified 10/29/23 09:50) HIVES Medication List - Last Reconciled 10/29/23 by Bunny Hdez MD brimonidine 0.2% 1 drp ophthalmic (eye) Q8H celecoxib (Celebrex) 200 mg PO BID PRN cetirizine (Zyrtec) 10 mg PO DAILY cholecalciferol (vitamin D3) 50 mcg PO DAILY 90 days fluticasone propionate 110 mcg/actuation (Flovent HFA) 2 puffs inhalation BID 30 days latanoprost 0.005% 1 drp ophthalmic (eye) QPM lidocaine 5% 1 patch topical DAILY 30 days netarsudil 0.02% (Rhopressa) 1 drp ophthalmic (eye) BEDTIME nicotine 1 patch transdermal DAILY 7 days nicotine 1 patch transdermal Q24H 28 days nicotine 1 patch transdermal DAILY 7 days sulfasalazine 1,500 mg (3 x 500 mg) PO BID Ventolin HFA 90 mcg/actuation (albuterol sulfate) 2 puffs inhalation Q6H PRN NS Tobacco use date assessed: 10/29/23 Dental Screening Dental Screen Date: 10/29/23 Did you have a dental visit in the last 12 months?: Yes Did you have a dental problem in the last 6 months where you did not have access to dental care?: No Was dental information given to patient?: Patient has dentist HPI 4 Months HPI Details Patient comes in today for her follow up visit She continues to experience increased diffuse joint pains, especially over both knees (worse on the left side) as well as pain and swelling over both ankles and feet (also worse on the left side) She is being treated for seronegative RA by rheumatology - was on Sulfasalazine and Enbrel previously but her Enbrel was discontinued at her last rheumatology follow up a few months ago as it seems to be ineffective and she was being switched over to Actemra but patient eventually decided not to start Actemra after reading up on its potential side effects and the fact that it is also used to treat certain forms of cancer States that she does not want any cancer drugs in her body She does have a follow up appointment with rheumatology later today and plans to discuss this further with Dr. Peters She denies any headaches or dizziness Denies any chest pains, no increased shortness of breath No nausea / vomiting, no abdominal pain No change in bowel habits noted She had her follow-up labs done a couple of days ago - to discuss her results [facility] Medical History Cataract Anxiety Glaucoma Seronegative rheumatoid arthritis Hot flashes Pure hypercholesterolemia Impaired fasting glucose Numbness and tingling in left hand Obstructive sleep apnea Polyarthritis Degenerative cervical spinal stenosis Morbid obesity with body mass index (BMI) of 40.0 to 49.9 Right shoulder pain Pain and swelling of left upper extremity Dermatitis Tubular adenoma REGINO on CPAP Hives Smoker Asthma Fibromyalgia Bilateral hand pain Weakness of both hands Arthralgia Surgical History H/O neck surgery H/O colonoscopy History of History of repair of rotator cuff Family History Father Medical history unknown Mother Medical history unknown Paternal Grandfather Diabetes FH: HTN (hypertension) Social History Household Members: Family Housing: House Are you a primary sub acute care nurse to a significant other at home: No Do you presently have visiting nurse or other home services: No Alcohol intake: current Alcohol intake frequency: holidays/special occasions only Patient Tobacco Use Status: Current everyday Tobacco user Tobacco use type: Cigarette Cigarettes Per Day: 10 e-Cigarette/Vaping Use: Never Used Second Hand Smoke Exposure: Yes service: No Current occupational status: disabled Gender identity: Female Cognitive needs: No Hearing needs: No Vision needs: No Questionnaire PHQ-9 Over the last 2 weeks, how often have you been bothered by any of the following problems? 1. Little interest or pleasure in doing things: several days 2. Feeling down, depressed, or hopeless: several days 3. Trouble falling or staying asleep, or sleeping too much: several days 4. Feeling tired or having little energy: several days 5. Poor appetite or overeating: not at all 6. Feeling bad about yourself - or that you are a failure or have let yourself or your family down: several days 7. Trouble concentrating on things, such as reading the newspaper or watching television: not at all 8. Moving or speaking so slowly that other people could have noticed. Or the opposite - being so fidgety or restless that you have been moving around a lot more than usual: not at all 9. Thoughts that you would be better off or of hurting yourself in some way: several days Total score: 6 Depression Screening Interpretation: Positive Depression Screening Follow-up: Existing condition and Community Mental Health Worker F/U Depression Screening Done: Yes 93073 - PHQ-9 Billing: Yes Source: Developed by Drs. Alberto Gaytan, Wendy Hernandez, Tonny Ward and colleagues, with an educational di from [employer]. Thrive Questionnaire Date Thrive assessed: 10/29/23 I am a: Patient What is your living situation today?: I have a steady place to live Within the past 12 months, did the food you bought not last and you didn't have the money to get more?: Never true Within the past 12 months, did you worry whether your food would run out before you got money to buy more?: Never true Do you have trouble paying for medicines?: No Do you have trouble getting transportation to medical appointments?: No Do you have trouble paying your heating and electricity bill?: No Do you have trouble taking care of your child, family member or friend?: No Do you have trouble with day-to-day activities such as bathing, preparing meals, shopping, managing finances, etc.?: No Are you currently unemployed and looking for a job?: No Are you interested in more education?: No Please select the resources that you would like help with: None Currently or been in a relationship where the following occur: No concerns reported THRIVE Score: 0 AUDIT C Alcohol Use Questionnaire (AUDIT-C) 1. How often do you have a drink containing alcohol?: Never 2. How many drinks containing alcohol do you have on a typical day when you are drinking?: 1 or 2 3. How often do you have six or more drinks on one occasion?: Never Total Score: 0 Score Reviewed/Action Taken: Yes VIPUL-7 AMB Questionnaire VIPUL-7 Date VIPUL - 7 assessed: 10/29/23 Feeling nervous, anxious, or on edge: 2 = More than half the days Not being able to stop or control worryin = More than half the days Worrying too much about different things: 0 = Not at all Trouble relaxin = Not at all Being so restless that it is hard to sit still: 1 = Several days Becoming easily annoyed or irritable: 3 = Nearly every day Feeling afraid as if something awful might happen: 0 = Not at all Total VIPUL-7 score (0-4 normal; 5-9 mild; 10-14 moderate; 15-21 severe): 8 Source: Developed by Drs. Alberto Gaytan, Wendy Hernandez, Tonny Ward and colleagues, with an educational di from [employer]. VIPUL-7 Assessment Billing VIPUL-7 Assessment Tool: VIPUL-7 Assessment 26974 Review of Systems Const Reports body aches, Reports difficulty sleeping, Reports fatigue, Denies fever(s) and Denies headache(s) ENT Denies dysphagia, Denies dizziness, Denies otalgia, Denies headache(s), Reports neck pain, Denies odynophagia and Denies sore throat Card Denies chest pain, Denies palpitations and Denies dyspnea Resp Denies chest congestion, Denies cough, Denies dyspnea and Denies wheezing GI Denies abdominal pain, Denies constipation, Denies dysphagia, Denies heartburn, Denies diarrhea, Denies nausea, Denies odynophagia and Denies vomiting Denies difficulty voiding, Denies nocturia, Denies dysuria and Denies urinary urgency Musc Reports back pain, Reports myalgias (diffuse), Reports arthralgias (over multiple joints; pain over both wrists and hands & knees), Reports neck pain and Reports stiffness (over multiple joints) Skin/Breast Denies rash Neuro Denies dizziness and Denies headache(s) Endo Reports fatigue and Denies palpitations Aller/Immun Denies wheezing Physical exam (Primary Care) Vital Signs: Last Vital Signs Pulse 86 10/29/23 09:27 BP 130/78 10/29/23 09:27 Pulse Ox 95 09/12/24 09:27 Oxygen Delivery Method Room Air 10/29/23 09:27 BMI result Body Mass Index 48.1 Tobacco/Smoking Status: Tobacco use Status Tobacco use date assessed 10/29/23 10/29/23 09:33 Patient Tobacco Use Status Current everyday Tobacco 10/29/23 09:33 Tobacco use type Cigarette 10/29/23 09:33 e-Cigarette/Vaping Use Never Used 10/29/23 09:33 PHQ-9: PHQ-9 Score PHQ-9: Total score 6 10/29/23 09:33 Depression Screening Interpretation: Positive Depression Screening Follow-up: Existing condition and Community Mental Health Worker F/U Thrive Assessment: Date of Thrive Assessment Date Thrive assessed 10/29/23 10/29/23 09:33 Currently or been in a relationship where the following occur: No concerns reported Const General: no acute distress and alert HENMT Ears: TM's normal bilaterally and EAC's normal Throat: Yes posterior oropharynx normal and Yes tonsils normal (no TP congestion noted) Neck Neck: Yes no lymphadenopathy and Yes supple Thyroid: Thyroid normal Resp Auscultation: clear to auscultation bilaterally, no rales, no wheezes and diminished lung sounds (slightly) diffuse Cardio Rate: regular rate Rhythm: regular rhythm Heart sounds: no murmurs GI Palpation (GI): Soft to palpation and nontender Auscultation: normal bowel sounds General: Yes no CVA tenderness Back/Spine/Pelvis Back: no CVA tenderness Cervical Spine: Cervical spine tenderness Thoracic/Lumbar Spine: lumbar spinal tenderness Skin Rashes: no rashes Extrem General: Yes no clubbing, cyanosis or edema Right upper extremity: wrist Details: tenderness; no swelling Left upper extremity: wrist ((+) Phalen's test) Right lower extremity: hip/thigh Details: tenderness Location: of the hip and knee Details: tenderness Left lower extremity: hip/thigh Details: tenderness Location: of the hip and knee Details: tenderness Results Reviewed Results Reviewed: Laboratory Tests 10/23/23 10/27/23 10/27/23 13:21 07:21 07:22 WBC 6.2 Hgb 14.2 Hct 43.6 Plt Count 183 ESR 12 Sodium 141 Potassium 4.7 Creatinine 0.85 Estimated GFR > 60 Fasting Glucose 115 H Hemoglobin A1c % 5.5 Calcium 9.5 AST 14 ALT 16 C-Reactive Protein 0.61 H Triglycerides 105 Cholesterol 230 H LDL Cholesterol, Calc 165 H HDL Cholesterol 44 25-OH Vitamin D Total 38.8 TSH 1.71 Ur Specific [place] 1.025 Urine Protein Negative Urine Glucose (UA) Negative Urine Blood Trace H Urine Nitrite Negative Ur Leukocyte Esterase Negative Assessment and Plan Assessment & Plan (1) Pure hypercholesterolemia: Code(s): E78.00 - Pure hypercholesterolemia, unspecified Plan: Results of her labs done a couple of days ago reviewed and discussed with patient - have cautioned patient that her cholesterol levels, particularly her total and LDL cholesterol, have increased again from her previous numbers last year Reinforced low cholesterol diet - low cholesterol diet info provided to patient in the office today to help clarify her questions on cholesterol-rich foods and diets She has declined offer to start her on cholesterol-lowering medications in the past and states that she has not changed her stance on this Will recheck her labs and fasting lipids in 4 months for follow up (2) Impaired fasting glucose: Code(s): R73.01 - Impaired fasting glucose Plan: Her HgbA1c was at 5.8% when previously checked in January 2023 and was again normal more recently at 5.5% on her labs done a couple of days ago Reinforced low calorie/low carb diet She is advised again that exercise and losing weight can also help but she states again that it is impossible for her to do any exercise other than some stationary ones that she can do in a sitting position, given her current conditions and physical issues Will recheck her FBS and HgbA1c again in 4 months for follow up (3) Asthma: Code(s): J45.909 - Unspecified asthma, uncomplicated Qualifiers: Asthma severity: mild Asthma persistence: intermittent Asthma complication type: uncomplicated Qualified Code(s): J45.20 - Mild intermittent asthma, uncomplicated Plan: Her asthma appears stable and better controlled lately Continue Flovent HFA 110 mcg 2 inhalations BID, Montelukast 10 mg QD and Albuterol HFA 2 inhalations every 6 hours as needed (4) Seronegative rheumatoid arthritis: Code(s): M06.00 - Rheumatoid arthritis without rheumatoid factor, unspecified site Plan: She was seen by rheumatology (Dr. Lucero) last year and no additional recommendations were provided/offered She is now seeing [facility] - was worked up for inflammatory arthritis and diagnosed with seronegative rheumatoid arthritis Patient declined offer to start her on Methotrexate previously due to fear of side effects and was started instead on Sulfasalazine 1 gm BID She was determined to have inadequate response to Tx and was started additionally on Enbrel several months ago Enbrel was discontinued at her last follow up with rheumatology a few months ago as it was determined to be ineffective She was being switched over to Actemra but patient eventually decided not to start Actemra after reading up on its potential side effects and the fact that it is also used to treat certain forms of cancer Follow-up with rheumatology as scheduled - she has an appointment with Dr. Peters later this afternoon (5) Fibromyalgia: Code(s): M79.7 - Fibromyalgia Plan: She was again encouraged to continue with regular exercise and physical activity (as tolerated) to help manage her fibromyalgia symptoms better She was tried on Pregabalin 150 mg TID for a few months but states that it did not help (6) Polyarthritis: Code(s): M13.0 - Polyarthritis, unspecified Plan: Follow up with [facility] and with [facility] rheumatology as scheduled She has received joint injections in the past but patient states that they did not help much although she recently started back up with pain management again and received some injections into her knee a dew months ago, which she feels have not helped much She has reportedly been advised by orthopedics that they will only consider scheduling her for joint replacement surgery if she can lose weight and get her BMI down to at least <45 - patient reports that she can hardly do any activity or exercise and is not optimistic that she can lose any significant amount of weight to get to where she needs to be She was also eventually diagnosed with RA and is being treated/managed by rheumatology for this (7) Chronic hip pain, bilateral: Code(s): M25.551 - Pain in right hip; M25.552 - Pain in left hip; G89.29 - Other chronic pain Plan: MRI of the hips done back in 2012 revealed minimal degenerative arthritis in the left hip and mild degenerative arthritis in the right hip Per request, was sent for repeat MRI of the hips for further evaluation of her increasing bilateral hip pain but this was denied by insurance Follow up with [facility] as scheduled (8) Degenerative cervical spinal stenosis: Comment: S/P anterior discectomy Code(s): M48.02 - Spinal stenosis, cervical region Plan: Patient reports (+) improvement of pain in her left wrist but still has weakness and on and off pain radiating down her left arm at times Follow up with neurosurgery as scheduled (9) Hives: Code(s): L50.9 - Urticaria, unspecified Plan: Continue Cetirizine 10 mg QD PRN (10) Vitamin D deficiency: Code(s): E55.9 - Vitamin D deficiency, unspecified Plan: Continue Vitamin D3 2000 units QD (11) Obstructive sleep apnea: Code(s): G47.33 - Obstructive sleep apnea (adult) (pediatric) Plan: She was scheduled for a repeat study at [facility] in December 2021 but states that she was recently advised by sleep specialist that it is not worth doing as it is not going to provide any additional useful information at this time Follow up with sleep medicine as scheduled or as needed (12) Glaucoma: Code(s): H40.9 - Unspecified glaucoma Qualifiers: Glaucoma type: unspecified Laterality: bilateral Qualified Code(s): H40.9 - Unspecified glaucoma Plan: Continue Rhopressa 1 drop into each eye Q HS, Latanoprost 0.005% 1 drop into each eye Q PM and Brimonidine 0.2% 1 drop into each eye TID Follow up with ophthalmology as scheduled (13) Anxiety: Code(s): F41.9 - Anxiety disorder, unspecified Plan: Patient feels that she has been having issues with anxiety lately - thinks she has PTSD Was seeing therapist at [facility] in the past but states that her therapist left the area months ago and she has not seen anybody since She does not want to go to [facility] as her mother supposedly works there Have offered to refer her back to [facility] but she declined at this time - states that she would like to think about it a little more and will call for referral if she makes up her mind to go back to [facility] (14) Smoker: Code(s): F17.200 - Nicotine dependence, unspecified, uncomplicated Plan: Counseled again on smoking cessation Per request, she was started on nicotine patches to help her quit smoking previously (15) Morbid obesity with body mass index (BMI) of 40.0 to 49.9: Code(s): E66.01 - Morbid (severe) obesity due to excess calories Plan: Reinforced diet/exercise as tolerated/lose weight but patient states that exercise is unrealistic given her current multiple conditions adn physical issues Plan Follow up in 4 months Orders: Orders Complete Blood Count Auto Diff 4 Months D64.9 - Anemia, unspecified Comprehensive [place]. Panel Fast 4 Months E78.00 - Pure hypercholesterolemia, unspecified Lipid Panel 4 Months E78.00 - Pure hypercholesterolemia, unspecified TSH reflex Free T4 4 Months E78.00 - Pure hypercholesterolemia, unspecified Vitamin D 25-OH Total 4 Months E55.9 - Vitamin D deficiency, unspecified UA CC w/rflx Micro + Cult 4 Months R30.0 - Dysuria Hemoglobin A1c 4 Months R73.01 - Impaired fasting glucose Coding Level of Care Code Est Pt Level 4 (65429) Diagnoses Pure hypercholesterolemia E78.00 Impaired fasting glucose R73.01 Mild intermittent asthma without complication J45.20 Asthma severity: mild Asthma persistence: intermittent Asthma complication type: uncomplicated Seronegative rheumatoid arthritis M06.00 Fibromyalgia M79.7 Polyarthritis M13.0 Chronic hip pain, bilateral M25.551; M25.552; G89.29 Degenerative cervical spinal stenosis M48.02 Hives L50.9 Vitamin D deficiency E55.9 Obstructive sleep apnea G47.33 Glaucoma of both eyes, unspecified glaucoma type H40.9 Glaucoma type: unspecified Laterality: bilateral Anxiety F41.9 Smoker F17.200 Morbid obesity with body mass index (BMI) of 40.0 to 49.9 E66.01 Additional Codes VIPUL-7 Assessment Billing - VIPUL-7 Assessment Tool: VIPUL-7 Assessment 99283 ([id number])
== END 2023-10-29 10:08 | disposition home or self-care (01) ==
PROVIDERS: PCP Internal Medicine; Visit Provider Internal Medicine
DX: E78.00 Pure hypercholesterolemia, unspecified (principal); M06.00 Rheumatoid arthritis without rheumatoid factor, unspecified site; E66.01 Morbid (severe) obesity due to excess calories; Z68.42 Body mass index [BMI] 45.0-49.9, adult; R73.01 Impaired fasting glucose; J45.20 Mild intermittent asthma, uncomplicated; M79.7 Fibromyalgia; M13.0 Polyarthritis, unspecified; M25.551 Pain in right hip; M25.552 Pain in left hip; G89.29 Other chronic pain; M48.02 Spinal stenosis, cervical region
CPT/HCPCS: 99214

== ENCOUNTER 2023-10-29 14:32 | Outpatient (AMB) | payer OTHER, SELFPAY ==
--- NOTE | 2023-10-29 14:43 | MHC.OFFVIS ---
Vital Signs 10/29/23 14:46 Height 5 ft 4 in Weight 282 lb 13.649 oz BMI 48.5 BP 134/80 Blood Pressure Location Rt brachial Position Sitting Pulse 86 Pulse Source Pulse Oximeter Pulse Oximetry (%) 96 Oxygen Delivery Method Room Air Intake Visit Reasons: RA Intake Note: Patient presents for RA. Allergies tramadol Allergy (Severe, Verified 10/29/23 14:47) n/v Penicillins [PENICILLINS] Allergy (Intermediate, Verified 10/29/23 14:47) HIVES Medication List - Last Reconciled 10/29/23 by Phil Peters MD brimonidine 0.2% 1 drp ophthalmic (eye) Q8H celecoxib (Celebrex) 200 mg PO BID PRN cetirizine (Zyrtec) 10 mg PO DAILY cholecalciferol (vitamin D3) 50 mcg PO DAILY 90 days fluticasone propionate 110 mcg/actuation (Flovent HFA) 2 puffs inhalation BID 30 days latanoprost 0.005% 1 drp ophthalmic (eye) QPM lidocaine 5% 1 patch topical DAILY 30 days netarsudil 0.02% (Rhopressa) 1 drp ophthalmic (eye) BEDTIME nicotine 1 patch transdermal DAILY 7 days nicotine 1 patch transdermal Q24H 28 days nicotine 1 patch transdermal DAILY 7 days sulfasalazine 1,500 mg (3 x 500 mg) PO BID Ventolin HFA 90 mcg/actuation (albuterol sulfate) 2 puffs inhalation Q6H PRN NS HPI Comments Details: 53-year-old female with seronegative rheumatoid arthritis returns for follow-up. She is on sulfasalazine 1500 mg Twice daily . After last visit, Actemra was approved. Patient did not started for fear of possible increased risk of cancer with Actemra. She did not take it. She states that she has been doing reasonably well overall. She gets intermittent pains, especially her knees, her knees crack. She does take Celebrex twice a day most days. It provides some relief. Initial history: This is a 52-year-old morbidly obese female with a past medical history of asthma, anxiety, fibromyalgia, REGINO, degenerative disc disease cervical spine presents for evaluation of bilateral hand pain and swelling. Per patient the condition started a little over a year ago with bilateral hands, wrist swelling and pain, associated with morning stiffness lasting 30 minutes. Patient would have difficulty grabbing objects. Recently been having left ankle swelling without pain. Patient states that adult dual action will provide some relief. She stated she had hives do weeks ago resolved with Zyrtec. She denies any history suggestive of Raynaud's. She continues to smoke. No history of DVT/PE. [facility] Medical History Cataract Anxiety Glaucoma Seronegative rheumatoid arthritis Hot flashes Pure hypercholesterolemia Impaired fasting glucose Numbness and tingling in left hand Obstructive sleep apnea Polyarthritis Degenerative cervical spinal stenosis Morbid obesity with body mass index (BMI) of 40.0 to 49.9 Right shoulder pain Pain and swelling of left upper extremity Dermatitis Tubular adenoma REGINO on CPAP Hives Smoker Asthma Fibromyalgia Bilateral hand pain Weakness of both hands Arthralgia Surgical History H/O neck surgery H/O colonoscopy History of History of repair of rotator cuff Family History Father Medical history unknown Mother Medical history unknown Paternal Grandfather Diabetes FH: HTN (hypertension) Social History Household Members: Family Housing: House Are you a primary care program resident to a significant other at home: No Do you presently have visiting nurse or other home services: No Alcohol intake: current Alcohol intake frequency: holidays/special occasions only Patient Tobacco Use Status: Current everyday Tobacco user Tobacco use type: Cigarette Cigarettes Per Day: 10 e-Cigarette/Vaping Use: Never Used Second Hand Smoke Exposure: Yes service: No Current occupational status: disabled Gender identity: Female Cognitive needs: No Hearing needs: No Vision needs: No Review of Systems Musc Reports arthralgias and Reports stiffness Physical Exam Vital Signs: Last Vital Signs Pulse 86 10/29/23 14:46 BP 134/80 10/29/23 14:46 Pulse Ox 96 10/29/23 14:46 Oxygen Delivery Method Room Air 10/29/23 14:46 BMI result Body Mass Index 48.5 Const General: cooperative, healthy appearing, comfortable and no acute distress Nutritional Appearance: obese morbidly obese Orientation/consciousness: patient oriented x3 Limitations: no limitations HEENT Head: Yes normocephalic and Yes atraumatic Resp Effort & Inspection: normal respiratory effort and able to speak in complete sentences Neuro General: patient oriented x3 Extrem Other: No wrist tenderness or pain with full flexion and extension bilaterally Negative MCP squeeze test bilaterally Bilateral diffuse MCP puffiness but no tenderness Normal bilateral hand sales and service consultant strength Bilateral knee crepitus but no pain with flexion-extension bilaterally No ankle swelling or tenderness bilaterally Negative MTP squeeze test bilaterally Assessment & Plan Assessment & Plan (1) Rheumatoid arthritis: Comment: seroneg 05/08 Refused Methotrexate SSZ started 09/07 incomplete response Enbrel added 12/08 DC 07/2023 ineffective Actemra approved 08/2022. Patient did not take it for fear of malignancy risk Code(s): M06.9 - Rheumatoid arthritis, unspecified Category: Medical Qualifiers: Rheumatoid arthritis location: multiple sites Rheumatoid factor presence: without rheumatoid factor Qualified Code(s): M06.09 - Rheumatoid arthritis without rheumatoid factor, multiple sites Plan: This is a 53-year-old female with seronegative rheumatoid arthritis presents for follow-up. Shes is on sulfasalazine 1500 mg Twice daily. She is doing well overall. There is no active synovitis on exam today. No need for additional DMARDs today. Today I had a long conversation with patient regarding risk of malignancy with rheumatoid arthritis and with different biologic DMARDs. Advised patient to use Celebrex sparingly Continue sulfasalazine 1500 mg Twice daily Labs before next visit 3 months (2) On sulfasalazine therapy: Code(s): Z79.899 - Other halfway (current) drug therapy Category: Medical Plan: Monitor safety labs for sulfasalazine (3) Smoker: Code(s): F17.200 - Nicotine dependence, unspecified, uncomplicated Category: Social Hx Plan: Patient continues to smoke. Discussed the association of poor outcomes in patients with rheumatoid arthritis who continues to smoke. 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 Advised patient to use Celebrex only as needed Plan I spent 26 minutes reviewing patient's chart, evaluating patient, ordering diagnostic workup, counseling patient and documenting in the chart Orders: Orders Comprehensive Met. Panel 3 Months M06.00 - Rheumatoid arthritis without rheumatoid factor, unspecified site Complete Blood Count Auto Diff 3 Months M06.00 - Rheumatoid arthritis without rheumatoid factor, unspecified site C Reactive Protein 3 Months M06.00 - Rheumatoid arthritis without rheumatoid factor, unspecified site Erythrocyte Sedimentation Rate 3 Months M06.00 - Rheumatoid arthritis without rheumatoid factor, unspecified site Medications: Refilled celecoxib (Celebrex) 200 mg PO BID PRN 60 caps 1RF pain Coding Level of Care Code Est Pt Level 5 (21809) Diagnoses Rheumatoid arthritis of multiple sites with negative rheumatoid factor M06.09 Rheumatoid arthritis location: multiple sites Rheumatoid factor presence: without rheumatoid factor On sulfasalazine therapy Z79.899 Smoker F17.200 penitentiary (current) use of non-steroidal anti-inflammatories (nsaid) Z79.1
[2023-10-29 14:46] VITALS: BP 134/80; PULSE 86; O2SAT 96; BMI 48.5
== END 2023-10-29 15:23 | disposition home or self-care (01) ==
PROVIDERS: PCP Internal Medicine; Visit Provider Student in an Organized Health Care Education/Training Program
DX: M06.09 Rheumatoid arthritis without rheumatoid factor, multiple sites (principal); Z79.899 Other long term (current) drug therapy; F17.200 Nicotine dependence, unspecified, uncomplicated; Z79.1 Long term (current) use of non-steroidal anti-inflammatories (NSAID)
CPT/HCPCS: 99214

== ENCOUNTER → 2023-10-29 14:32 | Outpatient (BNVA) | payer OTHER, SELFPAY | PROVIDERS: PCP Internal Medicine; Visit Provider Student in an Organized Health Care Education/Training Program | DX: M06.09 Rheumatoid arthritis without rheumatoid factor, multiple sites (principal); F17.210 Nicotine dependence, cigarettes, uncomplicated; Z79.1 Long term (current) use of non-steroidal anti-inflammatories (NSAID); Z79.899 Other long term (current) drug therapy | CPT/HCPCS: 99212 ==

== ENCOUNTER 2023-10-30 | Outpatient (REF) | payer OTHER, SELFPAY ==
[2023-11-04 15:24] LABS: HPV mRNA E6/E7 Not Detected (Not Detected)
== END 2023-10-30 00:01 | disposition home or self-care (01) ==
LOC: HO.LNP
PROVIDERS: Visit Provider Advanced Practice Midwife
DX: Z01.419 Encounter for gynecological examination (general) (routine) without abnormal findings (principal)
CPT/HCPCS: 87624; 88175

== ENCOUNTER 2023-10-30 09:42 | Outpatient (AMB) | payer OTHER, SELFPAY ==
--- NOTE | 2023-10-30 09:44 | MHC.OFFVIS ---
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 She is doing well with no concerns. Attempting to eat a healthy diet with calcium and vitamin D and stays active with exercise. Currently not sexually active. Denies any vaginal dryness or irritation. STI testing offered; she accepts. Last pap smear; 2018. Last mammogram; 2023. Colonoscopy is UTD. Denies any family history of breast, ovarian or colon cancer. [facility] Medical History Cataract Anxiety Glaucoma Seronegative rheumatoid arthritis Hot flashes Pure hypercholesterolemia Impaired fasting glucose Numbness and tingling in left hand Obstructive sleep apnea Polyarthritis Degenerative cervical spinal stenosis Morbid obesity with body mass index (BMI) of 40.0 to 49.9 Right shoulder pain Pain and swelling of left upper extremity Dermatitis Tubular adenoma REGINO on CPAP Hives Smoker Asthma Fibromyalgia Bilateral hand pain Weakness of both hands Arthralgia Surgical History H/O neck surgery H/O colonoscopy History of History of repair of rotator cuff Family History Father Medical history unknown Mother Medical history unknown Paternal Grandfather Diabetes FH: HTN (hypertension) Social History Household Members: Family Housing: House Are you a primary physician assistant primary care to a significant other at home: No Do you presently have visiting nurse or other home services: No Alcohol intake: current Alcohol intake frequency: holidays/special occasions only Patient Tobacco Use Status: Current everyday Tobacco user Tobacco use type: Cigarette Cigarettes Per Day: 10 e-Cigarette/Vaping Use: Never Used Second Hand Smoke Exposure: Yes service: No Current occupational status: disabled Gender identity: Female Cognitive needs: No Hearing needs: No Vision needs: No Female Reproductive History Menstrual Menopause type: natural Total pregnancies: 2 Number of Living Children: 0 Ab induced: 2 Date of last pap smear: 12/05/18 (neg pap and hpv) Date of Mammogram: 04/16/23 (Birad 1) Review of Systems Const All systems reviewed & are unremarkable except as noted in HPI and below Reports as per HPI Eyes Reports no additional complaints ENT Reports no additional complaints Card Reports no additional complaints Resp Reports no additional complaints GI Reports as per HPI and Reports no additional complaints Reports as per HPI Musc Reports no additional complaints Skin/Breast Reports as per HPI Neuro Reports no additional complaints Psych Reports no additional complaints Endo Reports no additional complaints Marco Antonio/Lymph Reports no additional complaints Aller/Immun Reports no additional complaints Physical Exam Vital Signs: Last Vital Signs BP 110/70 10/30/23 09:45 BMI result Body Mass Index 48.4 Const General: cooperative, healthy appearing, no acute distress, well developed and alert Orientation/consciousness: patient oriented x3 HEENT Head: Yes normal to inspection Eyes General: appearance normal, both eyes and all related structures Neck Neck: Yes normal visual inspection Thyroid: Thyroid normal Chest Chest palpation & inspection: normal inspection of the chest and other (no puckering, dimpling, peau de orange, retraction, discharge, masses) Breast/axilla inspection: normal inspection of the breasts Breast/axilla palpation: normal palpation of the breasts Resp Effort & Inspection: normal respiratory effort GI Inspection: Yes normal to inspection Palpation (GI): Soft to palpation Rectal Exam - Female: deferred General: Yes bladder normal to palpation External Female Exam: normal external appearance and normal appearance of the urethra Speculum Exam - Vagina: normal appearance of the vagina, normal palpation, normal vaginal discharge and vagina atrophic Speculum Exam - Cervix: normal appearance of the cervix, normal palpation and Other cervical findings present (Atrophic changes bled slightly with Pap) Bimanual exam- vagina & uterus: normal bimanual exam, normal palpation, uterine size normal, bladder normal to palpation, normal palpation and non-tender Bimanual Exam- Adnexa, other: no masses Skin General skin exam: no rashes or lesions noted Rashes: no rashes Neuro General: patient oriented x3 Cognition (Neuro): normal cognition Extrem General: Yes normal to inspection Psych Attitude: cooperative Thought process: Normal thought process present Assessment & Plan Assessment & Plan (1) Encounter for well woman exam with routine gynecological exam: Code(s): Z01.419 - Encounter for gynecological examination (general) (routine) without abnormal findings Category: Medical Plan Discussed: Current recommendations for pap smears per ASCCP guidelines. Breast awareness, periodic self breast exams and yearly mammogram. Maintain a healthy lifestyle, well balanced diet including Calcium 1,200 mg and Vitamin D 600 IU daily, and routine exercise. Use of condoms for STI prevention if indicated. Contact the office with any postmenopausal bleeding. Patient verbalizes understanding and agrees to the plan of care. She was given opportunity to ask questions and all questions were answered to the best of my ability. 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 This note is constructed using voice recognition software. While every effort has been made to ensure accuracy, loan servicing specialist errors may have been included. Orders: Orders PAP + HPV E6/E7 rfx 18/45 Today Z01.419 - Encounter for gynecological examination (general) (routine) without abnormal findings Coding Level of Care Code Est Pt Prev Care 40-64y(19808) Diagnoses Encounter for well woman exam with routine gynecological exam Z01.419
[2023-10-30 09:45] VITALS: BP 110/70; BMI 48.4
== END 2023-10-30 10:24 | disposition home or self-care (01) ==
LOC: HO.HWS 09:42
PROVIDERS: PCP Internal Medicine; Visit Provider Advanced Practice Midwife
DX: Z01.419 Encounter for gynecological examination (general) (routine) without abnormal findings (principal)
CPT/HCPCS: 99396

== ENCOUNTER → 2023-10-30 09:42 | Outpatient (BNVA) | payer OTHER, SELFPAY | PROVIDERS: PCP Internal Medicine; Visit Provider Advanced Practice Midwife | DX: Z01.419 Encounter for gynecological examination (general) (routine) without abnormal findings (principal) | CPT/HCPCS: 99396 ==

== ENCOUNTER 2024-01-21 12:50 | Outpatient (REF) | payer OTHER, SELFPAY ==
[2024-01-21 13:35] LABS: Hematocrit 41.5 % (37.0-47.0); Hemoglobin 13.7 g/dl (12.0-16.0); Mean Corpuscular Hemoglobin 30.2 pg (27.0-33.0); Mean Corpuscular Volume 91.4 fL (80.0-98.0); Platelet Count 200 X10*3/uL (160-400); Red Blood Count 4.54 X10*6/uL (4.20-5.50); Red Cell Distribution Width 15.9 % (11.0-16.0)
[2024-01-21 13:36] LABS: WBC ABN SCTR FOR CBC 1
[2024-01-21 13:50] LABS: Alanine Aminotransferase 19 U/L (0-31); Alkaline Phosphatase 68 U/L (39-117); Anion Gap 9 (12-20); Aspartate Amino Transferase 15 U/L (5-31); Bilirubin Total 0.2 mg/dL (0.0-1.0); Blood Urea Nitrogen 9 mg/dL (9-16); C Reactive Protein 0.43 mg/dL (< or = 0.50); Calcium 9.2 mg/dL (8.4-10.2); Carbon Dioxide 28 mmol/L (22-29); Chloride 108 mmol/L (96-108); Estimated Glomerular Filt Rate > 60; Glucose Random 107 mg/dL (60-115); Potassium 4.5 mmol/L (3.3-5.1); Sodium 140 mmol/L (135-145); Total Protein 6.7 g/dL (6.5-8.0)
[2024-01-21 14:06] LABS: Atypical Lymphs Percent Manual 2 % (0-6); Band Neutrophils Percent 0 % (3-5); Basophils Percent Manual 1 % (0-2); Eosinophils Percent Manual 1 % (0-4); Lymphocytes Percent Manual 34 % (20-40); Monocytes Percent Manual 12 % (2-11); Neutrophils Percent Manual 50 % (45-73)
[2024-01-21 14:07] LABS: Large Platelet PRESENT; Platelet Estimate NORMAL (NORMAL); Platelet Morphology Comment NOTED; RBC Morphology NORMAL
[2024-01-21 14:22] LABS: Atypical Lymph Absolute Manual 0.1 x10*3/uL; Basophils Abs Manual 0.1 X10*3/uL (0.0-0.2); Eosinophils Absolute Manual 0.1 X10*3/uL (0.0-0.4); Lymphocytes Absolute Manual 2.3 X10*3/uL (1.2-4.9); Monocytes Absolute Manual 0.8 X10*3/uL (0.1-1.2); Neutrophils Absolute Manual 3.5 X10*3/uL (2.0-8.3); White Blood Count 6.9 X10*3/uL (4.8-10.8)
[2024-01-21 14:25] LABS: Erythrocyte Sedimentation Rate 14 MM/HR (0-20)
== END 2024-01-21 12:51 | disposition home or self-care (01) ==
LOC: HO.LAB 12:50
PROVIDERS: PCP Internal Medicine; Visit Provider Student in an Organized Health Care Education/Training Program
DX: M06.00 Rheumatoid arthritis without rheumatoid factor, unspecified site (principal); Z79.899 Other long term (current) drug therapy
CPT/HCPCS: 36415; 80053; 85007; 85027; 85652; 86140

== ENCOUNTER 2024-01-25 14:24 | Outpatient (AMB) | payer OTHER, SELFPAY ==
[2024-01-25 14:28] VITALS: BP 142/80; PULSE 87; O2SAT 98; BMI 46.5
--- NOTE | 2024-01-25 14:28 | A.OFFVIS_ITS ---
Vital Signs 01/25/24 14:28 Height 5 ft 4 in Weight 271 lb 2.697 oz BMI 46.5 BP 142/80 H Blood Pressure Location Lt brachial Position Sitting Pulse 87 Pulse Source Pulse Oximeter Pulse Oximetry (%) 98 Oxygen Delivery Method Room Air Intake Visit Reasons: RA Intake Note: Patient last seen by doctor Phil Peters on 10/29/23. Presents today for RA follow up and test results. Allergies tramadol Allergy (Severe, Verified 01/25/24 14:30) n/v Penicillins [PENICILLINS] Allergy (Intermediate, Verified 01/25/24 14:30) HIVES Medication List - Last Reconciled 01/25/24 by Phil Peters MD celecoxib (Celebrex) 200 mg PO BID PRN cetirizine (Zyrtec) 10 mg PO DAILY cholecalciferol (vitamin D3) 50 mcg PO DAILY 90 days fluticasone propionate 110 mcg/actuation (Flovent HFA) 2 puffs inhalation BID 30 days latanoprost 0.005% 1 drp ophthalmic (eye) QPM lidocaine 5% 1 patch topical DAILY 30 days netarsudil 0.02% (Rhopressa) 1 drp ophthalmic (eye) BEDTIME nicotine 1 patch transdermal DAILY 7 days nicotine 1 patch transdermal Q24H 28 days nicotine 1 patch transdermal DAILY 7 days sulfasalazine 1.5 grams (3 x 500 mg) PO BID Ventolin HFA 90 mcg/actuation (albuterol sulfate) 2 puffs inhalation Q6H PRN NS HPI Comments Details: 54-year-old female with seronegative rheumatoid arthritis returns for follow-up. She is on sulfasalazine 1500 mg Twice daily. She states that she has been taking on dieting and exercise, she has lost about 10 lb since last visit. She states that she continues to get intermittent joint pains and cracking in her knees, cramping feeling in her hands. She takes Celebrex about once or twice a week. Initial history: This is a 52-year-old morbidly obese female with a past medical history of asthma, anxiety, fibromyalgia, REGINO, degenerative disc disease cervical spine presents for evaluation of bilateral hand pain and swelling. Per patient the condition started a little over a year ago with bilateral hands, wrist swelling and pain, associated with morning stiffness lasting 30 minutes. Patient would have difficulty grabbing objects. Recently been having left ankle swelling without pain. Patient states that adult dual action will provide some relief. She stated she had hives do weeks ago resolved with Zyrtec. She denies any history suggestive of Raynaud's. She continues to smoke. No history of DVT/PE. [facility] Medical History Cataract Anxiety Glaucoma Seronegative rheumatoid arthritis Hot flashes Pure hypercholesterolemia Impaired fasting glucose Numbness and tingling in left hand Obstructive sleep apnea Polyarthritis Degenerative cervical spinal stenosis Morbid obesity with body mass index (BMI) of 40.0 to 49.9 Right shoulder pain Pain and swelling of left upper extremity Dermatitis Tubular adenoma REGINO on CPAP Hives Smoker Asthma Fibromyalgia Bilateral hand pain Weakness of both hands Arthralgia Surgical History H/O neck surgery H/O colonoscopy History of History of repair of rotator cuff Family History Father Medical history unknown Mother Medical history unknown Paternal Grandfather Diabetes FH: HTN (hypertension) Social History Household Members: Family Housing: House Are you a primary career consultant to a significant other at home: No Do you presently have visiting nurse or other home services: No Alcohol intake: current Alcohol intake frequency: holidays/special occasions only Patient Tobacco Use Status: Current everyday Tobacco user Tobacco use type: Cigarette Cigarettes Per Day: 10 e-Cigarette/Vaping Use: Never Used Second Hand Smoke Exposure: Yes service: No Current occupational status: disabled Gender identity: Female Cognitive needs: No Hearing needs: No Vision needs: No Female Reproductive History Menstrual Menopause type: natural Total pregnancies: 2 Number of Living Children: 0 Ab induced: 2 Date of last pap smear: 12/05/18 (neg pap and hpv) Date of Mammogram: 04/16/23 (Birad 1) Review of Systems Musc Reports arthralgias and Reports stiffness Physical Exam Vital Signs: Last Vital Signs Pulse 87 01/25/24 14:28 BP 142/80 H 01/25/24 14:28 Pulse Ox 98 01/25/24 14:28 Oxygen Delivery Method Room Air 01/25/24 14:28 BMI result Body Mass Index 46.5 Const General: cooperative, healthy appearing, comfortable and no acute distress Nutritional Appearance: obese morbidly obese Orientation/consciousness: patient oriented x3 Limitations: no limitations HEENT Head: Yes normocephalic and Yes atraumatic Resp Effort & Inspection: normal respiratory effort and able to speak in complete sentences Neuro General: patient oriented x3 Extrem Other: No wrist tenderness or pain with full flexion and extension bilaterally Negative MCP squeeze test bilaterally Normal bilateral hand academic records specialist strength Bilateral knee crepitus but no pain with flexion-extension bilaterally No ankle swelling or tenderness bilaterally Negative MTP squeeze test bilaterally Assessment & Plan Assessment & Plan (1) Rheumatoid arthritis: Comment: seroneg 05/08 Refused Methotrexate SSZ started 09/07 incomplete response Enbrel added 12/08 DC 07/2023 ineffective Actemra approved 08/2022. Patient did not take it for fear of malignancy risk Code(s): M06.9 - Rheumatoid arthritis, unspecified Category: Medical Qualifiers: Rheumatoid arthritis location: multiple sites Rheumatoid factor presence: without rheumatoid factor Qualified Code(s): M06.09 - Rheumatoid arthritis without rheumatoid factor, multiple sites Plan: This is a 54-year-old female with seronegative rheumatoid arthritis presents for follow-up. Shes is on sulfasalazine 1500 mg Twice daily. She is doing well overall. There is no active synovitis on exam today. No need for additional DMARDs today. Today I had a long conversation with patient regarding risk of malignancy with rheumatoid arthritis and with different biologic DMARDs. 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 Discussed the association of poor outcomes in patients with rheumatoid arthritis who continues to smoke. 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 Advised patient to use Celebrex only as needed Plan I spent 26 minutes reviewing patient's chart, evaluating patient, ordering diagnostic workup, counseling patient and documenting in the chart Orders: Orders C Reactive Protein 4 Months M06.00 - Rheumatoid arthritis without rheumatoid factor, unspecified site, Z79.1 - residential (current) use of non-steroidal anti- inflammatories (NSAID), Z79.899 - Other custodial (current) drug therapy Complete Blood Count Auto Diff 4 Months M06.00 - Rheumatoid arthritis without rheumatoid factor, unspecified site, Z79.1 - residential (current) use of non- steroidal anti-inflammatories (NSAID), Z79.899 - Other exterminator helper termite (current) drug therapy Comprehensive Met. Panel 4 Months M06.00 - Rheumatoid arthritis without rheumatoid factor, unspecified site, Z79.1 - residential (current) use of non- steroidal anti-inflammatories (NSAID), Z79.899 - Other exterminator helper termite (current) drug therapy Erythrocyte Sedimentation Rate 4 Months M06.00 - Rheumatoid arthritis without rheumatoid factor, unspecified site, Z79.1 - oysterman (current) use of non- steroidal anti-inflammatories (NSAID), Z79.899 - Other exterminator helper termite (current) drug therapy Coding Level of Care Code Est Pt Level 4 (53918) Complex EM visit Add On G2211 Diagnoses Rheumatoid arthritis of multiple sites with negative rheumatoid factor M06.09 Rheumatoid arthritis location: multiple sites Rheumatoid factor presence: without rheumatoid factor On sulfasalazine therapy Z79.899 Smoker F17.200 oysterman (current) use of non-steroidal anti-inflammatories (nsaid) Z79.1
== END 2024-01-25 14:48 | disposition home or self-care (01) ==
PROVIDERS: PCP Internal Medicine; Visit Provider Student in an Organized Health Care Education/Training Program
DX: M06.09 Rheumatoid arthritis without rheumatoid factor, multiple sites (principal); Z79.899 Other long term (current) drug therapy; F17.200 Nicotine dependence, unspecified, uncomplicated; Z79.1 Long term (current) use of non-steroidal anti-inflammatories (NSAID)
CPT/HCPCS: 99214; G2211

== ENCOUNTER → 2024-01-25 14:24 | Outpatient (BNVA) | payer OTHER, SELFPAY | PROVIDERS: PCP Internal Medicine; Visit Provider Student in an Organized Health Care Education/Training Program | DX: M06.09 Rheumatoid arthritis without rheumatoid factor, multiple sites (principal); F17.210 Nicotine dependence, cigarettes, uncomplicated; Z79.1 Long term (current) use of non-steroidal anti-inflammatories (NSAID); Z79.899 Other long term (current) drug therapy | CPT/HCPCS: 99212 ==

== ENCOUNTER 2024-03-11 10:24 | Outpatient (REF) | payer OTHER, SELFPAY ==
[2024-03-11 10:39] LABS: MANUAL DIFF FLAG NO
[2024-03-11 11:07] LABS: Basophils Absolute Auto 0.1 X10*3/uL (0.0-0.2); Basophils Percent Auto 1.1 % (0-2); Eosinophils Absolute Auto 0.2 X10*3/uL (0.0-0.4); Eosinophils Percent Auto 2.5 % (0-4); Hematocrit 43.3 % (37.0-47.0); Hemoglobin 14.4 g/dl (12.0-16.0); Imm Gran Abs Auto 0.02 X10*3/uL (0.00-0.03); Imm Gran Pct Auto 0.3 % (0.0-0.4); Lymphocytes Absolute Auto 2.5 X10*3/uL (1.2-4.9); Lymphocytes Percent Auto 38.4 % (20-40); Mean Corpuscular HGB Conc 33.3 g/dl (31.0-35.0); Mean Corpuscular Hemoglobin 30.1 pg (27.0-33.0); Mean Corpuscular Volume 90.6 fL (80.0-98.0); Mean Platelet Volume 11.3 fL (9.4-12.3); Monocytes Absolute Auto 0.6 X10*3/uL (0.1-1.2); Monocytes Percent Auto 9.8 % (2-11); Neutrophils Absolute Auto 3.1 x10*3/uL (2.0-8.3); Neutrophils Percent Auto 47.9 % (45-73); Platelet Count 180 X10*3/uL (160-400); Red Blood Count 4.78 X10*6/uL (4.20-5.50); Red Cell Distribution Width 15.5 % (11.0-16.0); White Blood Count 6.5 X10*3/uL (4.8-10.8)
[2024-03-11 11:18] LABS: Estimated Average Glucose 117 mg/dL; Hemoglobin A1C 144.6475 umol/L; Hemoglobin A1c % 5.7 % (<6.0); Total Hemoglobin (HGBA1C) 3759.1144 umol/L
[2024-03-11 11:45] LABS: Erythrocyte Sedimentation Rate 14 MM/HR (0-20)
[2024-03-11 13:31] LABS: Alanine Aminotransferase 15 U/L (0-31); Albumin Level 4.1 g/dL (3.5-5.0); Anion Gap 13 (12-20); Aspartate Amino Transferase 18 U/L (5-31); Bilirubin Total 0.3 mg/dL (0.0-1.0); Blood Urea Nitrogen 12 mg/dL (9-16); C Reactive Protein 0.52 mg/dL (< or = 0.50); Calcium 9.7 mg/dL (8.4-10.2); Carbon Dioxide 26 mmol/L (22-29); Chloride 107 mmol/L (96-108); Cholesterol 220 mg/dL (<200); Estimated Glomerular Filt Rate > 60; Glucose Fasting 99 mg/dL (60-99); HDL Cholesterol 44 mg/dL (>40); LDL Cholesterol Calculated 151 mg/dL (<100); Potassium 4.6 mmol/L (3.3-5.1); Sodium 141 mmol/L (135-145); TSH reflex Free T4 2.12 uIU/mL (0.32-4.0); Total Protein 7.2 g/dL (6.5-8.0); Triglycerides 126 mg/dL (<150)
[2024-03-11 14:21] LABS: Alkaline Phosphatase 68 U/L (39-117)
== END 2024-03-11 10:25 | disposition home or self-care (01) ==
LOC: HO.LAB 10:24
PROVIDERS: Student in an Organized Health Care Education/Training Program; PCP Internal Medicine; Visit Provider Internal Medicine
DX: I10 Essential (primary) hypertension (principal); E78.00 Pure hypercholesterolemia, unspecified; E55.9 Vitamin D deficiency, unspecified; R73.01 Impaired fasting glucose; M06.00 Rheumatoid arthritis without rheumatoid factor, unspecified site; Z79.899 Other long term (current) drug therapy
CPT/HCPCS: 36415; 80053; 80061; 82306; 83036; 84443; 85025; 85652; 86140

== ENCOUNTER → 2024-03-14 09:12 | Outpatient (BNVA) | payer OTHER, SELFPAY | PROVIDERS: PCP Internal Medicine; Visit Provider Internal Medicine | DX: M06.00 Rheumatoid arthritis without rheumatoid factor, unspecified site (principal); E78.5 Hyperlipidemia, unspecified; J45.909 Unspecified asthma, uncomplicated; Z53.21 Procedure and treatment not carried out due to patient leaving prior to being seen by health care provider | CPT/HCPCS: 96127 ==

== ENCOUNTER 2024-04-21 12:50 | Outpatient (REF) | payer OTHER, SELFPAY ==
--- OUTSIDE RECORDS SUMMARY | 2024-04-21 15:30 | XMS_ITS | Clinical Summary ---
Author Organization [facility] Address [address] [place] [id number] Care Team Providers Care Back Strip Machine Operator Name Role Phone Bunny Hdez MD Primary Care Provider [phone] Social History Tobacco Use Types Packs/Day Years Used Date Smoking Tobacco: Never Assessed Sex and Gender Information Value Date Recorded Sex Assigned at Not on file Gender Identity Not on file Sexual Orientation Not on file Plan of Treatment Health Maintenance Due Date Last Done Comments Hepatitis B Vaccines (1 of 3 - 3-dose series) 1968 Hepatitis C Screening 1968 COVID-19 Vaccine (#1) 1968 Depression Screening 1980 Preventative Health Evaluation 01/20/1986 DTap / Tdap / Td (1 - Tdap) 01/20/1987 Cervical Cancer Screening (P ap Smear) 01/20/1989 Colon Cancer Screening (Colonoscopy) 01/20/2013 Breast Cancer Screening (Mammogram) 01/20/2018 Shingrix-Zoster Vaccine (1 of 2) 01/20/2018 Influenza Vaccine (#1) 2023 Pneumococcal Vaccine Aged Out No long er eligible based on patient's age to complete this topic RSV Ped < 20 months Aged Out No longe r eligible based on patient's age to complete this topic Care Teams Back Strip Machine Operator Relationship Specialty Start Date End Date Bunny Hdez MD [address] [place] [address] [place] [id number] PCP - General Internal Medicine 08/14/20
== END 2024-04-21 12:51 | disposition home or self-care (01) ==
LOC: HO.MAMMO 12:50
PROVIDERS: PCP Internal Medicine; Visit Provider Internal Medicine
DX: Z12.31 Encounter for screening mammogram for malignant neoplasm of breast (principal)
CPT/HCPCS: 77063; 77067

== ENCOUNTER → 2024-04-21 13:00 | Outpatient (BNV) | payer OTHER, SELFPAY | PROVIDERS: PCP Internal Medicine; Visit Provider Internal Medicine | DX: Z12.31 Encounter for screening mammogram for malignant neoplasm of breast (principal) | CPT/HCPCS: 77063; 77067 ==

== ENCOUNTER 2024-04-27 13:50 | Outpatient (AMB) | payer OTHER, SELFPAY ==
[2024-04-27 14:01] VITALS: BP 134/88; PULSE 90; RESP 18; TEMP 37.2; BMI 47.9
--- NOTE | 2024-04-27 14:01 | A.OFFPC_ITS ---
Vital Signs 04/27/24 14:01 Height 5 ft 4 in Weight 278 lb 12.8 oz BMI 47.9 BP 134/88 Blood Pressure Location Lt brachial Position Sitting Respiration 18 Pulse 90 Pulse Source Pulse Oximeter Temp 99 F Temp Source Oral Intake Visit Reasons: cataract laser center 05/20 & 05/31 Intake Note: Patient is here for a Pre-op for cataract removal surgery scheduled with [facility] on OD: 05/20/2024 and OS: 05/31/2024. Contract Negotiation Specialist Required: No Accompanied by: Self / Same As Patient Allergies tramadol Allergy (Severe, Verified 04/27/24 14:03) n/v Penicillins [PENICILLINS] Allergy (Intermediate, Verified 04/27/24 14:03) HIVES Medication List - Last Reconciled 04/28/24 by ANDER Ewing celecoxib (Celebrex) 200 mg PO BID PRN cetirizine (Zyrtec) 10 mg PO DAILY cholecalciferol (vitamin D3) 50 mcg PO DAILY 90 days fluticasone propionate 110 mcg/actuation (Flovent HFA) 2 puffs inhalation BID 30 days latanoprost 0.005% 1 drp ophthalmic (eye) QPM lidocaine 5% 1 patch topical DAILY 30 days netarsudil 0.02% (Rhopressa) 1 drp ophthalmic (eye) BEDTIME nicotine 1 patch transdermal DAILY 7 days nicotine 1 patch transdermal DAILY 7 days nicotine 1 patch transdermal Q24H 28 days sulfasalazine 1,500 mg (3 x 500 mg) PO BID 30 days Ventolin HFA 90 mcg/actuation (albuterol sulfate) 2 puffs inhalation Q6H PRN NS Tobacco use date assessed: 04/27/24 Dental Screening Dental Screen Date: 03/14/24 HPI cataract laser center 05/20 & 05/31 HPI Details The patient is a 54-year-old female who is presenting today for preop clearance, patient of Dr. Hdez, last seen on 10/29/2023 Surgery: Cataract surgery for left eye on 05/20/2024 and right eye on 05/31/[address] Churchill. The patient was diagnosed with a nuclear sclerosis OU and cortical age-related cataract OU Surgeon/location: Dr. Churchill at [facility] and [place], [place] Anesthesia: Local The patient denies history of perioperative hypothermia or blood clotting disorder. The patient is not on any blood thinners Medical history is significant for PTSD, depression, seronegative rheumatoid arthritis, pure hypercholesterolemia, impaired fasting glucose, obstructive sleep apnea, morbid obesity, gout, glaucoma The patient denies chest pain, shortness of breath, heart palpitation, dizziness or feeling faint Patient reports that when she had her colonoscopy, they had issues waking her up but this reason was not explained to her Discussed with patient that the risk is less because this procedure won't be getting generalized anesthesia Unable to obtain oxygen saturation due to black finger nail Urdu. Respiration regular and unlabored, the patient spoke in full sentences, no s/sx of any distress. The patient wanted to know how she could get an emotional support dog. Report that she still dealing with PTSD and feels like [facility] is giving her the runner round-will connect her with the community navigator for guidance Discussed with patient that all her medications could be taken with sips of water the day of surgery [facility] Medical History (Updated 04/28/24 @ 23:10 by ANDER Ewing) Cataract Anxiety Glaucoma Seronegative rheumatoid arthritis Hot flashes Pure hypercholesterolemia Impaired fasting glucose Numbness and tingling in left hand Obstructive sleep apnea Polyarthritis Degenerative cervical spinal stenosis Morbid obesity with body mass index (BMI) of 40.0 to 49.9 Right shoulder pain Pain and swelling of left upper extremity Dermatitis Tubular adenoma REGINO on CPAP Hives Smoker Asthma Fibromyalgia Bilateral hand pain Weakness of both hands Arthralgia Surgical History H/O neck surgery H/O colonoscopy History of History of repair of rotator cuff Family History Father Medical history unknown Mother Medical history unknown Paternal Grandfather Diabetes FH: HTN (hypertension) Social History Household Members: Family Housing: House Are you a primary dog day care attendant to a significant other at home: No Do you presently have visiting nurse or other home services: No Alcohol intake: current Alcohol intake frequency: holidays/special occasions only Patient Tobacco Use Status: Current everyday Tobacco user Tobacco use type: Cigarette Cigarettes Per Day: 10 e-Cigarette/Vaping Use: Never Used Second Hand Smoke Exposure: Yes service: No Current occupational status: disabled Gender identity: Female Cognitive needs: No Hearing needs: No Vision needs: Yes Questionnaire Thrive Questionnaire Date Thrive assessed: 04/27/24 I am a: Patient What is your living situation today?: I have a steady place to live Within the past 12 months, did the food you bought not last and you didn't have the money to get more?: Never true Within the past 12 months, did you worry whether your food would run out before you got money to buy more?: Never true Do you have trouble paying for medicines?: No Do you have trouble getting transportation to medical appointments?: No Do you have trouble paying your heating and electricity bill?: No Do you have trouble taking care of your child, family member or friend?: No Do you have trouble with day-to-day activities such as bathing, preparing meals, shopping, managing finances, etc.?: No Are you currently unemployed and looking for a job?: No Are you interested in more education?: No Please select the resources that you would like help with: None Currently or been in a relationship where the following occur: No concerns reported THRIVE Score: 0 AUDIT C Alcohol Use Questionnaire (AUDIT-C) 1. How often do you have a drink containing alcohol?: Never 3. How often do you have six or more drinks on one occasion?: Never Total Score: 0 VIPUL-7 AMB Questionnaire VIPUL-7 Date VIPUL - 7 assessed: 03/14/24 Source: Developed by Drs. Alberto Gaytan, Wendy Hernandez, Tonny Ward and colleagues, with an educational di from [employer]. Review of Systems Const Denies headache(s) Eyes Denies loss of vision ENT Denies vertigo, Denies dizziness, Denies headache(s) and Denies sore throat Card Denies chest pain, Denies leg edema and Denies lightheadedness Resp Denies cough, Denies hemoptysis and Denies wheezing GI Denies abdominal pain, Denies melena, Denies constipation, Denies diarrhea and Denies vomiting Denies urinary frequency, Denies dysuria and Denies urinary urgency Musc Reports arthralgias (Diffuse joint pain involving multiple joints), Reports joint swelling (Intermittent swelling of multiple joints), Denies numbness and Denies tingling Neuro Denies Abnormal speech present, Denies behavioral changes, Denies vertigo, Denies dizziness, Denies headache(s), Denies loss of vision, Denies memory loss, Denies numbness and Denies tingling Psych Reports anxiety (With PTSD), Denies behavioral changes, Denies depression, Denies memory loss and Denies panic attacks Marco Antonio/Lymph Denies easy bleeding and Denies easy bruising Aller/Immun Denies wheezing Physical exam (Primary Care) Vital Signs: Last Vital Signs Temp 99 F 04/27/24 14:01 Pulse 90 04/27/24 14:01 Resp 18 04/27/24 14:01 BP 134/88 04/27/24 14:01 BMI result Body Mass Index 47.9 Tobacco/Smoking Status: Tobacco use Status Tobacco use date assessed 04/27/24 04/27/24 14:16 Patient Tobacco Use Status Current everyday Tobacco 04/27/24 14:16 Tobacco use type Cigarette 04/27/24 14:16 e-Cigarette/Vaping Use Never Used 04/27/24 14:16 Thrive Assessment: Date of Thrive Assessment Date Thrive assessed 04/27/24 04/27/24 14:16 Currently or been in a relationship where the following occur: No concerns reported Const General: healthy appearing, no acute distress, alert and awake Nutritional Appearance: well nourished Orientation/consciousness: oriented to person, oriented to place and oriented to time HENMT Ears: TM's normal bilaterally General nose exam: Normal nasal mucous membranes and turbinates present Eyes Conjunctivae: conjunctivae normal Sclerae: sclerae normal Pupils: Equal, round and reactive pupils present Neck Neck: Yes no lymphadenopathy and Yes no JVD Thyroid: Thyroid normal Carotids: no bruits Resp Effort & Inspection: normal respiratory effort and not tachypneic Auscultation: no crackles, no rales, no rhonchi and no wheezes Cardio Rate: regular rate Rhythm: regular rhythm Heart sounds: no murmurs and normal S1 and S2 GI Palpation (GI): Soft to palpation, nontender, no hepatomegaly and no splenomegaly Auscultation: normal bowel sounds Back/Spine/Pelvis Cervical Spine: Cervical spine tenderness Thoracic/Lumbar Spine: thoracic spinal tenderness and lumbar spinal tenderness Skin General skin exam: no rashes or lesions noted and dry skin Neuro General: oriented to person, oriented to place and oriented to time Cranial nerves: Yes Equal, round and reactive pupils present Speech: No Abnormal speech present Gait exam (Neuro): Normal gait present Motor exam (neuro): no tremor noted Extrem General: Yes capillary refill normal Right upper extremity: full ROM and shoulder/upper arm Details: tenderness Left upper extremity: full ROM and shoulder/upper arm Details: tenderness Right lower extremity: full ROM, knee Details: tenderness and ankle Details: tenderness; no edema Left lower extremity: full ROM, knee Details: tenderness and ankle Details: tenderness; no edema Psych Mental Status: mental status grossly normal Speech and movement: Normal speech and movement present Affect: normal affect Attitude: cooperative Thought process: Normal thought process present Results Reviewed Results Reviewed: Laboratory Tests 03/11/24 10:37 WBC 6.5 RBC 4.78 Hgb 14.4 Hct 43.3 Plt Count 180 Sodium 141 Potassium 4.6 Chloride 107 BUN 12 Creatinine 0.84 Estimated GFR > 60 Fasting Glucose 99 Hemoglobin A1c % 5.7 AST 18 ALT 15 Alkaline Phosphatase 68 C-Reactive Protein 0.52 H Triglycerides 126 Cholesterol 220 H LDL Cholesterol, Calc 151 H HDL Cholesterol 44 25-OH Vitamin D Total 39.0 TSH 2.12 Coding Level of Care Code Est Pt Level 4 (76845) Diagnoses Preoperative clearance Z01.818 Cortical age-related cataract of both eyes H25.013 Age-related cataract type: cortical Cataract type: age-related Laterality: bilateral Seronegative rheumatoid arthritis M06.00 Pure hypercholesterolemia E78.00 Impaired fasting glucose R73.01 Obstructive sleep apnea G47.33 Vitamin D deficiency E55.9 Polyarthralgia M25.50 Smoker F17.200 PTSD (post-traumatic stress disorder) F43.10 Time Spent (min) 38 Assessment & Plan Assessment & Plan (1) Preoperative clearance: Code(s): Z01.818 - Encounter for other preprocedural examination Category: Medical Plan: Regarding preop clearance, the patient is at acceptable risk for proposed surgery. Reviewed with the patient that no surgery is completely free of risk and that this examination is to assist the surgeon in reviewing informed consent. (2) Cataract: Code(s): H26.9 - Unspecified cataract Category: Medical Qualifiers: Age-related cataract type: cortical Cataract type: age-related Laterality: bilateral Qualified Code(s): H25.013 - Cortical age-related cataract, bilateral Plan: Cataract surgery for left eye on 05/20/2024 and right eye on 05/31/[address] Churchill. The patient was diagnosed with a nuclear sclerosis OU and cortical age-related cataract OU (3) Seronegative rheumatoid arthritis: Code(s): M06.00 - Rheumatoid arthritis without rheumatoid factor, unspecified site Category: Medical Plan: continue sulfasalazine 1500 mg BID Follow up with rheumatology as scheduled (4) Pure hypercholesterolemia: Code(s): E78.00 - Pure hypercholesterolemia, unspecified Category: Medical Plan: Total cholesterol 200, LDL 151, HDL 44, tri 126 Reinforced low-cholesterol diet/activity as tolerated (5) Impaired fasting glucose: Code(s): R73.01 - Impaired fasting glucose Category: Medical Plan: Fasting glucose 99, A1c 5.7% Reinforced low sugar/carbohydrate diet (6) Obstructive sleep apnea: Code(s): G47.33 - Obstructive sleep apnea (adult) (pediatric) Category: Medical Plan: Patient was diagnosed obstructive sleep apnea, but has been unable to tolerate CPAP machine. She tried multiple different mask and was unable to be comfortable due to constantly moving because of chronic joint pain (7) Vitamin D deficiency: Code(s): E55.9 - Vitamin D deficiency, unspecified Category: Medical Plan: Continue cholecalciferol 50 mcg daily (8) Polyarthralgia: Comment: multiple joints Code(s): M25.50 - Pain in unspecified joint Category: Medical Plan: Continue Celebrex 200 mg b.i.d. p.r.n. and sulfasalazine 1500 mg BID FOLLOW UP WITH RHEUMATOLOGY SCHEDULED (9) Smoker: Code(s): F17.200 - Nicotine dependence, unspecified, uncomplicated Category: Social Hx Plan: Patient reports that she is smoking about 10 cigarettes a day Encouraged smoking cessation (10) PTSD (post-traumatic stress disorder): Code(s): F43.10 - Post-traumatic stress disorder, unspecified Category: Medical Plan: Psychology referral placed Orders: Referrals Psychology Referral F32.A - Depression, unspecified, F41.9 - Anxiety disorder, unspecified, F43.10 - Post-traumatic stress disorder, unspecified Medications: Refilled nicotine 1 patch transdermal DAILY 7 ea 0RF 7 days F17.200 - Nicotine d ependence, unspecified, uncomplicated nicotine 1 patch transdermal DAILY 7 ea 0RF 7 days F17.200 - Nicotine dependence, unspecified, uncomplicated nicotine 1 patch transdermal Q24H 28 ea 5RF 28 days F17.200 - Nicotine dependence, unspecified, uncomplicated
--- OUTSIDE RECORDS SUMMARY | 2024-04-27 16:18 | XMS_ITS | Clinical Summary ---
Author Organization [facility] Address [address] [place] [id number] Care Team Providers Care Rn On Site Name Role Phone Bunny Hdez MD Primary Care Provider [phone] Social History Tobacco Use Types Packs/Day Years [...] age to complete this topic Care Teams Rn On Site Relationship Specialty Start Date End Date Bunny Hdez MD [address] [place] [address] [place] [id number] PCP - General Internal Medicine 08/14/20
== END 2024-04-27 14:54 | disposition home or self-care (01) ==
LOC: HO.HMCH 13:50
PROVIDERS: PCP Internal Medicine
DX: Z01.818 Encounter for other preprocedural examination (principal); H25.013 Cortical age-related cataract, bilateral; M06.00 Rheumatoid arthritis without rheumatoid factor, unspecified site; E78.00 Pure hypercholesterolemia, unspecified; R73.01 Impaired fasting glucose; G47.33 Obstructive sleep apnea (adult) (pediatric); E55.9 Vitamin D deficiency, unspecified; M25.50 Pain in unspecified joint; F17.200 Nicotine dependence, unspecified, uncomplicated; F43.10 Post-traumatic stress disorder, unspecified

== ENCOUNTER → 2024-04-27 13:50 | Outpatient (BNVA) | payer OTHER, SELFPAY | PROVIDERS: PCP Internal Medicine | DX: Z01.818 Encounter for other preprocedural examination (principal); H02.0 Entropion and trichiasis of eyelid; M06.00 Rheumatoid arthritis without rheumatoid factor, unspecified site; R73.01 Impaired fasting glucose; E78.00 Pure hypercholesterolemia, unspecified; G47.33 Obstructive sleep apnea (adult) (pediatric); E55.9 Vitamin D deficiency, unspecified; M25.50 Pain in unspecified joint; F17.200 Nicotine dependence, unspecified, uncomplicated; Z71.6 Tobacco abuse counseling | CPT/HCPCS: 99212 ==

== ENCOUNTER 2024-06-16 14:24 | Outpatient (AMB) | payer OTHER, SELFPAY ==
--- NOTE | 2024-06-16 14:26 | MHC.OFFVIS ---
Vital Signs 06/16/24 14:27 Height 5 ft 4 in Weight 284 lb BMI 48.7 BP 126/76 Blood Pressure Location Lt brachial Position Sitting Pulse 94 Pulse Source Pulse Oximeter Pulse Oximetry (%) 97 Oxygen Delivery Method Room Air Intake Visit Reasons: RA Intake Note: Patient presents for follow up on RA and lab review. She was last seen in the office on 01/25/[address] Peters. Patient would like refill of Sulfasalzine today, and vitamin D, and Cetirizine, if possible. Allergies tramadol Allergy (Severe, Verified 06/16/24 14:30) n/v Penicillins [PENICILLINS] Allergy (Intermediate, Verified 06/16/24 14:30) HIVES Medication List - Last Reconciled 06/16/24 by Rhina Lucio MD cetirizine (Zyrtec) 10 mg PO DAILY cholecalciferol (vitamin D3) 50 mcg PO DAILY 90 days fluticasone propionate 110 mcg/actuation (Flovent HFA) 2 puffs inhalation BID 30 days ketorolac 0.5% drps ophthalmic (eye) latanoprost 0.005% 1 drp ophthalmic (eye) QPM lidocaine 5% 1 patch topical DAILY 30 days netarsudil 0.02% (Rhopressa) 1 drp ophthalmic (eye) BEDTIME nicotine 1 patch transdermal DAILY 7 days nicotine 1 patch transdermal DAILY 7 days nicotine 1 patch transdermal Q24H 28 days prednisolone acetate 1% drps ophthalmic (eye) sulfasalazine 1,500 mg (3 x 500 mg) PO BID 30 days Ventolin HFA 90 mcg/actuation (albuterol sulfate) 2 puffs inhalation Q6H PRN NS HPI Comments Details: Patient is a 54-year-old female current everyday smoker with depression, PTSD, polyarticular osteoarthritis, hyperlipidemia, seronegative rheumatoid arthritis here today for follow up Interval History: Patient last followed up 01/25/[address] Peters. At that time she was following up for seronegative rheumatoid arthritis. She was on sulfasalazine 1500 mg twice a day and doing well. Gets with the with the joint pain and cracking in her knees requiring Celebrex once or twice per week Today, Patient no longer taking celebrex as this stopped being efficacious Doing well Having more aches in her hands since the weather has been inconsistent Rheumatologic History: seroneg 05/08 Refused Methotrexate SSZ started 09/07 incomplete response Enbrel added 12/08 DC 07/2023 ineffective Actemra approved 08/2022. Patient did not take it for fear of malignancy risk Initial history: This is a 52-year-old morbidly obese female with a past medical history of asthma, anxiety, fibromyalgia, REGINO, degenerative disc disease cervical spine presents for evaluation of bilateral hand pain and swelling. Per patient the condition started a little over a year ago with bilateral hands, wrist swelling and pain, associated with morning stiffness lasting 30 minutes. Patient would have difficulty grabbing objects. Recently been having left ankle swelling without pain. Patient states that adult dual action will provide some relief. She stated she had hives do weeks ago resolved with Zyrtec. She denies any history suggestive of Raynaud's. She continues to smoke. No history of DVT/PE. Current Rheumatology Medication(s): Sulfasalazine 1500mg bid PFS Medical History (Updated 04/28/24 @ 23:10 by ANDER Ewing) Cataract Anxiety Glaucoma Seronegative rheumatoid arthritis Hot flashes Pure hypercholesterolemia Impaired fasting glucose Numbness and tingling in left hand Obstructive sleep apnea Polyarthritis Degenerative cervical spinal stenosis Morbid obesity with body mass index (BMI) of 40.0 to 49.9 Right shoulder pain Pain and swelling of left upper extremity Dermatitis Tubular adenoma REGINO on CPAP Hives Smoker Asthma Fibromyalgia Bilateral hand pain Weakness of both hands Arthralgia Surgical History H/O neck surgery H/O colonoscopy History of History of repair of rotator cuff Family History Father Medical history unknown Mother Medical history unknown Paternal Grandfather Diabetes FH: HTN (hypertension) Social History Household Members: Family Housing: House Are you a primary special needs child caregiver to a significant other at home: No Do you presently have visiting nurse or other home services: No Alcohol intake: current Alcohol intake frequency: holidays/special occasions only Patient Tobacco Use Status: Current everyday Tobacco user Tobacco use type: Cigarette Cigarettes Per Day: 10 e-Cigarette/Vaping Use: Never Used Second Hand Smoke Exposure: Yes service: No Current occupational status: disabled Gender identity: Female Cognitive needs: No Hearing needs: No Vision needs: Yes Review of Systems Const Details: Review of Systems Constitutional: Denies fever, chills, weight loss ENT: Denies vision changes, eye pain or eye redness, dental caries, dry mouth GI: Denies nausea, vomiting, diarrhea, abdominal pain, change in BM Pulm: Denies SOB, YOU, hemoptysis, wheezing Cards: Denies chest pain, palpitations Skin: Denies Raynaud's, rash, nail changes, photosensitivity, CLINICAL TRAINER: Denies headaches, weakness, paresthesias, recurrent falls MSK: as per HPI All other systems reviewed and are unremarkable except noted above Physical Exam Vital Signs: Last Vital Signs Pulse 94 06/16/24 14:27 BP 126/76 06/16/24 14:27 Pulse Ox 97 06/16/24 14:27 Oxygen Delivery Method Room Air 06/16/24 14:27 BMI result Body Mass Index 48.7 Vital signs reviewed Physical Examination CONSTITUITIONAL Patient alert and cooperative. Well appearing and in no apparent painful distress. Obese HEENT Conjunctiva and sclera clear. ?Pupils equal round and reactive to light. ?No lymphadenopathy. ? CHEST/RESPIRATORY SYSTEM Normal respiratory effort and able to speak in complete sentences. ?Clear to auscultation bilaterally. ?No crackles, rales, rhonchi, wheezes heard. CARDIAC SYSTEM Regular rate and rhythm. ?S1 and S2 heard no murmurs. ?Radial pulses intact bilaterally MSK Hands: ?Able to make a fist. No synovitis noted to the MCPs, PIPs or DIPs. ?No tenderness to palpation of these joints. No deformities noted. ?Hands are puffy but the joint itself is without swelling Wrists: ?Full range of motion at the wrists without pain. ?Tenderness to palpation of the wrist joints bilaterally Elbows: Full range of motion without pain. No tenderness, weakness, swelling, increased warmth or erythema. Shoulders: Decreased range of motion bilaterally secondary to pain able to do active range of motion up to about 160 degrees and then passive range of motion full 180 degrees. Tenderness to palpation of the AC joints bilaterally. Knees: ?Full range of motion. ?No tenderness, swelling, increased warmth or erythema.? Crepitations noted bilaterally Ankles: Full range of motion. ?No tenderness, swelling, increased warmth or erythema.? Dependent edema Feet: ?Negative squeeze test. ?No tenderness to palpation or swelling of the MTPs. Tender points:?No tenderness to palpation of the bilateral trapezius, supraspinatus, greater trochanters, anterior costochondral junctions, bilateral gluteal areas, bilateral suboccipital muscle insertions SKIN Skin intact without rashes. Results Reviewed Results Reviewed: Laboratory Tests 01/21/24 03/11/24 13:06 10:37 WBC 6.5 RBC 4.78 Hgb 14.4 Hct 43.3 Plt Count 180 ESR 14 Sodium 141 Potassium 4.6 Chloride 107 Carbon Dioxide 26 BUN 12 Creatinine 0.84 AST 18 ALT 15 Alkaline Phosphatase 68 C-Reactive Protein 0.43 0.52 H 25-OH Vitamin D Total 39.0 Immunology labs 04/07/22 13:50 Rheumatoid Factor < 13.0 Cycl Citrul Peptide IgG <16 LIZ Screen NEGATIVE Infectious serologies 04/07/22 09/05/22 13:50 14:31 Hepatitis A IgM Ab Nonreactive Hep Bs Antigen Negative Hep Bs Antibody NONREACTIVE Hep B Core Total Ab Nonreactive Hepatitis C Ab (EIA) Nonreactive TB Test (T-Spot) Com Negative Assessment & Plan Assessment & Plan (1) Seronegative rheumatoid arthritis: Code(s): M06.00 - Rheumatoid arthritis without rheumatoid factor, unspecified site Category: Medical Plan: #Seronegative RA Patient is a 54-year-old female with seronegative rheumatoid arthritis. Currently on sulfasalazine and no evidence of active synovitis on examination today Plan - Sulfasalzine 1500mg bid - Prednisone 5mg bid x 1 week for achy joints - RTC 6 months - Labs before visit: CBC, CMP, ESR, CRP (2) Polyarticular osteoarthritis: Code(s): M15.9 - Polyosteoarthritis, unspecified Plan: #Polyarticular OA Patient with polyarticular osteoarthritis. 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 (current) use of non-steroidal anti-inflammatories (nsaid): Code(s): Z79.1 - group home (current) use of non-steroidal anti-inflammatories (NSAID) Category: Medical Plan: #Long-term Use of NSAIDs Discussed with patient the benefits and risk of NSAIDs for managing the rheumatic condition Benefits include: - Reduced the pain, improved mobility, and increased participation in activities Risks include: - GI upset, potential also worsening or formation (especially in patients > 65 years old) Recommended using proton pump inhibitors (PPIs) for the duration of NSAID use to reduce the risk of gastric ulcers Plan I spent 30 minutes reviewing the record and labs, taking a history, examining the patient, discussing the treatment plan, ordering diagnostic work up and documenting in the medical record Medications: New diclofenac sodium 1% Bilateral hands 4 times a day 4 grams topical QID 100 grams 5RF M19.041 - Primary osteoarthritis, right hand, M19.042 - Primary osteoarthritis, left hand prednisone 10 mg (2 x 5 mg) PO DAILY 14 tabs 0RF M06.00 - Rheumatoid arthritis without rheumatoid factor, unspecified site Changed From sulfasalazine 1,500 mg (3 x 500 mg) PO BID 30 days 180 tabs 4RF M06.00 - Rheumatoid arthritis without rheumatoid factor, unspecified site To sulfasalazine 1,500 mg (3 x 500 mg) PO BID 90 days 540 tabs 1RF M06.00 - Rheumatoid arthritis without rheumatoid factor, unspecified site Coding Level of Care Code Est Pt Level 4 (86015) Complex EM visit Add On G2211 Diagnoses Seronegative rheumatoid arthritis M06.00 Polyarticular osteoarthritis M15.9 On sulfasalazine therapy Z79.899 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
[2024-06-16 14:27] VITALS: BP 126/76; PULSE 94; O2SAT 97; BMI 48.7
== END 2024-06-16 15:13 | disposition home or self-care (01) ==
LOC: HO.RHE 14:25
PROVIDERS: PCP Internal Medicine; Visit Provider Student in an Organized Health Care Education/Training Program
DX: M06.00 Rheumatoid arthritis without rheumatoid factor, unspecified site (principal); M15.9 Polyosteoarthritis, unspecified; Z79.899 Other long term (current) drug therapy; Z79.1 Long term (current) use of non-steroidal anti-inflammatories (NSAID)
CPT/HCPCS: 99214; G2211

== ENCOUNTER → 2024-06-16 14:24 | Outpatient (BNVA) | payer OTHER, SELFPAY | PROVIDERS: PCP Internal Medicine; Visit Provider Student in an Organized Health Care Education/Training Program | DX: M06.00 Rheumatoid arthritis without rheumatoid factor, unspecified site (principal); M15.9 Polyosteoarthritis, unspecified; Z79.899 Other long term (current) drug therapy; Z79.1 Long term (current) use of non-steroidal anti-inflammatories (NSAID) | CPT/HCPCS: 99212 ==

== ENCOUNTER 2024-09-13 09:16 | Outpatient (REF) | payer OTHER, SELFPAY ==
[2024-09-13 09:29] LABS: MANUAL DIFF FLAG NO
--- OUTSIDE RECORDS SUMMARY | 2024-09-13 09:43 | XMS_ITS | Clinical Summary ---
Author Organization [facility] Address [address] [place] [id number] Care Team Providers Care Data Solutions Architect Name Role Phone Bunny Hdez MD Primary Care Provider [phone] Social History Tobacco Use Types Packs/Day Years [...] (1 of 2) 01/20/2018 Influenza Vaccine (#1) 2024 Pneumococcal Vaccine Aged Out No long er eligible based on patient's age to complete this topic RSV Ped < 20 months Aged Out No longe r eligible based on patient's age to complete this topic Care Teams Data Solutions Architect Relationship Specialty Start Date End Date Bunny Hdez MD [address] [place] [address] [place] [id number] PCP - General Internal Medicine 08/14/20
[2024-09-13 09:46] LABS: Hematocrit 39.0 % (37.0-47.0); Hemoglobin 12.9 g/dl (12.0-16.0); Imm Gran Abs Auto 0.03 X10*3/uL (0.00-0.03); Imm Gran Pct Auto 0.4 % (0.0-0.4); Lymphocytes Absolute Auto 3.0 X10*3/uL (1.2-4.9); Mean Corpuscular HGB Conc 33.1 g/dl (31.0-35.0); Mean Corpuscular Hemoglobin 30.1 pg (27.0-33.0); Mean Corpuscular Volume 91.1 fL (80.0-98.0); NRBC Abs Auto 0.000 X10*3/uL (0.0-0.012); NRBC Pct Auto 0.0 /100WBC (0.0-0.2); Platelet Count 175 X10*3/uL (160-400); Red Blood Count 4.28 X10*6/uL (4.20-5.50); White Blood Count 6.7 X10*3/uL (4.8-10.8)
== END 2024-09-13 09:17 | disposition home or self-care (01) ==
LOC: HO.LAB 09:16
PROVIDERS: Student in an Organized Health Care Education/Training Program; Visit Provider Internal Medicine
DX: R30.0 Dysuria (principal); M06.00 Rheumatoid arthritis without rheumatoid factor, unspecified site; D64.9 Anemia, unspecified; Z79.1 Long term (current) use of non-steroidal anti-inflammatories (NSAID); Z79.899 Other long term (current) drug therapy
CPT/HCPCS: 36415; 85025; 86140

== ENCOUNTER 2024-09-14 08:50 | Outpatient (AMB) | payer OTHER, SELFPAY ==
[2024-09-14 08:52] VITALS: BP 126/84; PULSE 90; O2SAT 95; BMI 48.6
--- NOTE | 2024-09-14 08:52 | A.OFFPC_ITS ---
Vital Signs 09/14/24 08:52 Height 5 ft 4 in Weight 283 lb 6 oz BMI 48.6 BP 126/84 Blood Pressure Location Lt brachial Position Sitting Pulse 90 Pulse Source Pulse Oximeter Pulse Oximetry (%) 95 Oxygen Delivery Method Room Air Intake Visit Reasons: REGINO/VIT D Route Rider Required: No Accompanied by: Self / Same As Patient Allergies tramadol Allergy (Severe, Verified 09/14/24 09:11) n/v Penicillins (PENICILLINS) Allergy (Intermediate, Verified 09/14/24 09:11) HIVES Medication List - Last Reconciled 09/14/24 by Bunny Hdez MD cetirizine (Zyrtec) 10 mg PO DAILY cholecalciferol (vitamin D3) 50 mcg PO DAILY 90 days diclofenac sodium 1% 4 grams topical QID fluticasone propionate 110 mcg/actuation (Flovent HFA) 2 puffs inhalation BID 30 days ketorolac 0.5% drps ophthalmic (eye) latanoprost 0.005% 1 drp ophthalmic (eye) QPM lidocaine 5% 1 patch topical DAILY 30 days nicotine 1 patch transdermal DAILY 7 days nicotine 1 patch transdermal DAILY 7 days nicotine 1 patch transdermal Q24H 28 days prednisolone acetate 1% drps ophthalmic (eye) sulfasalazine 1,500 mg (3 x 500 mg) PO BID 90 days Ventolin HFA 90 mcg/actuation (albuterol sulfate) 2 puffs inhalation Q6H PRN NS Tobacco use date assessed: 09/14/24 Dental Screening Dental Screen Date: 09/14/24 Did you have a dental visit in the last 12 months?: Yes Did you have a dental problem in the last 6 months where you did not have access to dental care?: No Was dental information given to patient?: Patient has dentist HPI REGINO/VIT D HPI Details Patient comes in today for her follow up visit States that she continues to experience increased diffuse joint pains although she states that these have decreased somewhat with the warmer weather that we've had lately She is requesting for Rx for another round of oral Prednisone for a week for her left wrist pain; feels that her wrist is also somewhat swollen and states that this is likely from activities she did lately that involved the use of her left wrist She is still being treated for seronegative RA by [facility] Rheumatology - was on Sulfasalazine and Enbrel previously but Enbrel was discontinued last year due to ineffectiveness She was switched over to Actemra but patient decided not to start Actemra after reading up on its potential side effects and the fact that it is also used to treat certain forms of cancer She is currently only on Sulfasalzine and oral Prednisone PRN She denies any headaches or dizziness Denies any chest pains, no increased shortness of breath No nausea / vomiting, no abdominal pain No change in bowel habits noted She just had a CBC done for rheumatology yesterday and has no other follow up labs done since February 2024 [facility] Medical History (Updated 09/14/24 @ 09:49 by Bunny Hdez MD) Osteoarthritis of hips, bilateral Cataract Anxiety Glaucoma Seronegative rheumatoid arthritis Hot flashes Pure hypercholesterolemia Impaired fasting glucose Numbness and tingling in left hand Obstructive sleep apnea Polyarthritis Degenerative cervical spinal stenosis Morbid obesity with body mass index (BMI) of 40.0 to 49.9 Right shoulder pain Pain and swelling of left upper extremity Dermatitis Tubular adenoma REGINO on CPAP Hives Smoker Asthma Fibromyalgia Bilateral hand pain Weakness of both hands Arthralgia Surgical History H/O neck surgery H/O colonoscopy History of History of repair of rotator cuff Family History Father Medical history unknown Mother Medical history unknown Paternal Grandfather Diabetes FH: HTN (hypertension) Social History Household Members: Family Housing: House Are you a primary field care coordinator to a significant other at home: No Do you presently have visiting nurse or other home services: No Alcohol intake: current Alcohol intake frequency: holidays/special occasions only Patient Tobacco Use Status: Current everyday Tobacco user Tobacco use type: Cigarette Cigarettes Per Day: 10 e-Cigarette/Vaping Use: Never Used Second Hand Smoke Exposure: Yes service: No Current occupational status: disabled Gender identity: Female Cognitive needs: No Hearing needs: No Vision needs: Yes Questionnaire PHQ-9 Over the last 2 weeks, how often have you been bothered by any of the following problems? 1. Little interest or pleasure in doing things: not at all 2. Feeling down, depressed, or hopeless: several days 3. Trouble falling or staying asleep, or sleeping too much: not at all 4. Feeling tired or having little energy: more than half the days 5. Poor appetite or overeating: not at all 6. Feeling bad about yourself - or that you are a failure or have let yourself or your family down: several days 7. Trouble concentrating on things, such as reading the newspaper or watching television: not at all 8. Moving or speaking so slowly that other people could have noticed. Or the opposite - being so fidgety or restless that you have been moving around a lot more than usual: not at all 9. Thoughts that you would be better off or of hurting yourself in some way: not at all Total score: 4 Depression Screening Interpretation: Positive Depression Screening Follow-up: Existing condition and Community Mental Health Worker F/U Depression Screening Done: Yes 08683 - PHQ-9 Billing: Yes Source: Developed by Drs. Alberto Gaytan, Wendy Hernandez, Tonny Ward and colleagues, with an educational di from [employer]. Thrive Questionnaire Date Thrive assessed: 09/14/24 I am a: Patient What is your living situation today?: I have a steady place to live Within the past 12 months, did the food you bought not last and you didn't have the money to get more?: Sometimes True Within the past 12 months, did you worry whether your food would run out before you got money to buy more?: Often true Do you have trouble paying for medicines?: No Do you have trouble getting transportation to medical appointments?: No Do you have trouble paying your heating and electricity bill?: Yes Do you have trouble taking care of your child, family member or friend?: No Do you have trouble with day-to-day activities such as bathing, preparing meals, shopping, managing finances, etc.?: Yes Are you currently unemployed and looking for a job?: No Are you interested in more education?: No Please select the resources that you would like help with: None Currently or been in a relationship where the following occur: No concerns reported THRIVE Score: 3 AUDIT C Alcohol Use Questionnaire (AUDIT-C) 1. How often do you have a drink containing alcohol?: Monthly or less 3. How often do you have six or more drinks on one occasion?: Never Total Score: 1 Score Reviewed/Action Taken: Yes VIPUL-7 AMB Questionnaire VIPUL-7 Date VIPUL - 7 assessed: 09/14/24 Feeling nervous, anxious, or on edge: 2 = More than half the days Not being able to stop or control worryin = More than half the days Worrying too much about different things: 3 = Nearly every day Trouble relaxin = More than half the days Being so restless that it is hard to sit still: 0 = Not at all Becoming easily annoyed or irritable: 3 = Nearly every day Feeling afraid as if something awful might happen: 1 = Several days Total VIPUL-7 score (0-4 normal; 5-9 mild; 10-14 moderate; 15-21 severe): 13 Source: Developed by Drs. Alberto Gaytan, Wendy Hernandez, Tonny Ward and colleagues, with an educational di from [employer]. Review of Systems Const Reports body aches, Reports difficulty sleeping, Reports fatigue, Denies fever( s) and Denies headache(s) ENT Denies dysphagia, Denies dizziness, Denies otalgia, Denies headache(s), Reports neck pain, Denies odynophagia and Denies sore throat Card Denies chest pain, Denies palpitations and Denies dyspnea Resp Denies chest congestion, Denies cough and Denies dyspnea GI Denies abdominal pain, Denies constipation, Denies dysphagia, Denies heartburn, Denies diarrhea, Denies nausea, Denies odynophagia and Denies vomiting Denies difficulty voiding, Denies nocturia, Denies dysuria and Denies urinary urgency Musc Reports back pain, Reports myalgias (diffuse), Reports arthralgias (over multiple joints; increased pain over the left wrist at present), Reports neck pain and Reports stiffness (over multiple joints) Skin/Breast Denies rash Neuro Denies dizziness and Denies headache(s) Endo Reports fatigue and Denies palpitations Physical exam (Primary Care) Vital Signs: Last Vital Signs Pulse 90 09/14/24 08:52 BP 126/84 09/14/24 08:52 Pulse Ox 95 09/14/24 08:52 Oxygen Delivery Method Room Air 09/14/24 08:52 BMI result Body Mass Index 48.6 Tobacco/Smoking Status: Tobacco use Status Tobacco use date assessed 09/14/24 09/14/24 08:59 Patient Tobacco Use Status Current everyday Tobacco 09/14/24 08:59 Tobacco use type Cigarette 09/14/24 08:59 e-Cigarette/Vaping Use Never Used 09/14/24 08:59 PHQ-9: PHQ-9 Score PHQ-9: Total score 4 09/14/24 08:59 Depression Screening Interpretation: Positive Depression Screening Follow-up: Existing condition and Community Mental Health Worker F/U Thrive Assessment: Date of Thrive Assessment Date Thrive assessed 09/14/24 09/14/24 08:59 Currently or been in a relationship where the following occur: No concerns reported Const General: no acute distress and alert HENMT Ears: TM's normal bilaterally and EAC's normal Throat: Yes posterior oropharynx normal and Yes tonsils normal (no TP congestion noted) Neck Neck: Yes supple and No lymphadenopathy Thyroid: Thyroid normal Resp Auscultation: clear to auscultation bilaterally, no rales, no wheezes and diminished lung sounds (slightly) diffuse Cardio Rate: regular rate Rhythm: regular rhythm Heart sounds: no murmurs GI Palpation (GI): Soft to palpation and nontender Auscultation: normal bowel sounds General: Yes no CVA tenderness Back/Spine/Pelvis Back: no CVA tenderness Cervical Spine: Cervical spine tenderness Thoracic/Lumbar Spine: lumbar spinal tenderness Skin Rashes: no rashes Extrem General: Yes no clubbing, cyanosis or edema Right upper extremity: wrist Details: tenderness; no swelling Left upper extremity: wrist ((+) Phalen's test) Right lower extremity: hip/thigh Details: tenderness Location: of the hip and knee Details: tenderness Left lower extremity: hip/thigh Details: tenderness Location: of the hip and knee Details: tenderness Results Reviewed Results Reviewed: Laboratory Tests 03/11/24 09/13/24 10:37 09:27 WBC 6.5 6.7 Hgb 14.4 12.9 Hct 43.3 39.0 Plt Count 180 175 ESR 14 Sodium 141 Potassium 4.6 Creatinine 0.84 Estimated GFR > 60 Fasting Glucose 99 Hemoglobin A1c % 5.7 Calcium 9.7 AST 18 ALT 15 C-Reactive Protein 0.52 H 0.66 H Triglycerides 126 Cholesterol 220 H LDL Cholesterol, Calc 151 H HDL Cholesterol 44 25-OH Vitamin D Total 39.0 TSH 2.12 Coding Level of Care Code Est Pt Level 4 (78758) Diagnoses Pure hypercholesterolemia E78.00 Mild intermittent asthma without complication J45.20 Asthma severity: mild Asthma persistence: intermittent Asthma complication type: uncomplicated Impaired fasting glucose R73.01 Seronegative rheumatoid arthritis M06.00 Fibromyalgia M79.7 Polyarthritis M13.0 Primary osteoarthritis of both hips M16.0 Osteoarthritis type: primary Degenerative cervical spinal stenosis M48.02 Hives L50.9 Vitamin D deficiency E55.9 Obstructive sleep apnea G47.33 Glaucoma of both eyes, unspecified glaucoma type H40.9 Glaucoma type: unspecified Laterality: bilateral Anxiety F41.9 Smoker F17.200 Morbid obesity with body mass index (BMI) of 40.0 to 49.9 E66.01 Additional Codes PHQ-9 - 31385 - PHQ-9 Billing: Yes ([id number]) Assessment & Plan Assessment & Plan (1) Pure hypercholesterolemia: Code(s): E78.00 - Pure hypercholesterolemia, unspecified Category: Medical Plan: Patient has not had her cholesterol levels checked since February 2024 - her LDL cholesterol at the time was still elevated at 151 mg/dl Reinforced low cholesterol diet She has declined offer to start her on cholesterol-lowering medications in the past and continues to decline pharmacotherapy for her cholesterol Will recheck her labs and fasting lipids in 4 months for follow up (2) Asthma: Code(s): J45.909 - Unspecified asthma, uncomplicated Category: Medical Qualifiers: Asthma severity: mild Asthma persistence: intermittent Asthma complication type: uncomplicated Qualified Code(s): J45.20 - Mild intermittent asthma, uncomplicated Plan: Her asthma again appears better controlled lately Continue Flovent HFA 110 mcg 2 inhalations BID, Montelukast 10 mg QD and Albuterol HFA 2 inhalations every 6 hours as needed (3) Impaired fasting glucose: Code(s): R73.01 - Impaired fasting glucose Category: Medical Plan: Her HgbA1c was at 5.8% when previously checked in January 2023 and at 5.5% on her labs done back in February 2024 Reinforced low calorie/low carb diet She is advised again that exercise and losing weight can also help but she again states that it is impossible for her to do any exercise other than some stationary ones that she can do in a sitting position, given her current conditions and physical issues Will recheck her FBS and HgbA1c in 4 months for follow up (4) Seronegative rheumatoid arthritis: Code(s): M06.00 - Rheumatoid arthritis without rheumatoid factor, unspecified site Category: Medical Plan: She was seen by Dr. Lucero in [place] a couple of years ago and no additional recommendations were provided/offered She started seeing Dr. Peters at [facility] Rheumatology last year and was worked up for inflammatory arthritis and diagnosed with seronegative rheumatoid arthritis Patient declined offer to start her on Methotrexate previously due to fear of side effects and was started instead on Sulfasalazine 1 gm BID She was determined to have inadequate response to Tx and was started additionally on Enbrel last year but this was also eventually discontinued due to lack of efficacy She was then switched over to Actemra but patient decided not to start Actemra after reading up on its potential side effects and the fact that it is also used to treat certain forms of cancer She has since stayed on Sulfasalazine and PRN Prednisone She is now seeing Dr. Lucio - to follow-up with rheumatology as scheduled (5) Fibromyalgia: Code(s): M79.7 - Fibromyalgia Category: Medical Plan: She is again encouraged to continue with regular exercise and physical activity (as tolerated) to help manage her fibromyalgia symptoms better She was tried on Pregabalin 150 mg TID for a few months but states that it did not help (6) Polyarthritis: Code(s): M13.0 - Polyarthritis, unspecified Category: Medical Plan: Follow up with [facility] and with [facility] rheumatology as scheduled She has received joint injections in the past but patient states that they did not help much although she recently started back up with pain management again for injections/interventional Tx She has reportedly been advised by orthopedics that they will only consider scheduling her for joint replacement surgery if she can lose weight and get her BMI down to at least <45 - patient reports that she can hardly do any activity or exercise and is not optimistic that she can lose any significant amount of weight to get to where she needs to be She was also eventually diagnosed with RA and is being treated/managed by rheumatology for this Per request, will start her again on 7 days of oral Prednisone 5 mg BID for her increased left wrist pain and swelling recently (7) Osteoarthritis of hips, bilateral: Code(s): M16.0 - Bilateral primary osteoarthritis of hip Category: Medical Qualifiers: Osteoarthritis type: primary Qualified Code(s): M16.0 - Bilateral primary osteoarthritis of hip Plan: MRI of the hips done back in 2012 revealed minimal degenerative arthritis in the left hip and mild degenerative arthritis in the right hip Per request, was sent for repeat MRI of the hips for further evaluation of her increasing bilateral hip pain but this was denied by insurance Follow up with [facility] as scheduled (8) Degenerative cervical spinal stenosis: Comment: S/P anterior discectomy Code(s): M48.02 - Spinal stenosis, cervical region Category: Medical Plan: Patient reports (+) improvement of pain in her left wrist since her cervical spine discectomy but she still has weakness and on and off pain radiating down her left arm at times Follow up with neurosurgery as scheduled (9) Hives: Code(s): L50.9 - Urticaria, unspecified Category: Medical Plan: Continue Cetirizine 10 mg QD PRN (10) Vitamin D deficiency: Code(s): E55.9 - Vitamin D deficiency, unspecified Category: Medical Plan: Continue Vitamin D3 2000 units QD (11) Obstructive sleep apnea: Code(s): G47.33 - Obstructive sleep apnea (adult) (pediatric) Category: Medical Plan: She was scheduled for a repeat study at [facility] in December 2021 but states that she was eventually advised by her sleep specialist that it is not worth doing as it is not going to provide any additional useful information at this time Follow up with sleep medicine as scheduled or as needed (12) Glaucoma: Code(s): H40.9 - Unspecified glaucoma Category: Medical Qualifiers: Glaucoma type: unspecified Laterality: bilateral Qualified Code(s): H40.9 - Unspecified glaucoma Plan: S/P eye surgery in April 2024 for her cataract and glaucoma Continue Rhopressa 1 drop into each eye Q HS, Latanoprost 0.005% 1 drop into each eye Q PM and Brimonidine 0.2% 1 drop into each eye TID Follow up with ophthalmology as scheduled (13) Anxiety: Code(s): F41.9 - Anxiety disorder, unspecified Category: Medical Plan: Patient feels that she has been having issues with increasing anxiety earlier this year and thinks she has PTSD She was seeing a therapist at [facility] in the past but states that her therapist left the area months ago and she has not seen anybody since She does not want to go to [facility] as her mother supposedly works there Have offered to refer her back to [facility] [place] but she declined - states that she will call for referral if she decides to go back to [place] (14) Smoker: Code(s): F17.200 - Nicotine dependence, unspecified, uncomplicated Category: Social Hx Plan: Patient is counseled again on smoking cessation Continue Nicotine patches QD to help her quit smoking (15) Morbid obesity with body mass index (BMI) of 40.0 to 49.9: Code(s): E66.01 - Morbid (severe) obesity due to excess calories Category: Medical Plan: Reinforced diet/exercise as tolerated/lose weight but patient states that exercise is unrealistic given her current multiple conditions and physical issues Plan Follow up in 4 months Orders: Orders TSH reflex Free T4 4 Months E78.00 - Pure hypercholesterolemia, unspecified Lipid Panel 4 Months E78.00 - Pure hypercholesterolemia, unspecified Complete Blood Count Auto Diff 4 Months D64.9 - Anemia, unspecified Comprehensive [place]. Panel Fast 4 Months E78.00 - Pure hypercholesterolemia, unspecified Hemoglobin A1c 4 Months R73.01 - Impaired fasting glucose UA CC w/rflx Micro + Cult 4 Months R30.0 - Dysuria Erythrocyte Sedimentation Rate 4 Months M25.50 - Pain in unspecified joint Vitamin D 25-OH Total 4 Months E55.9 - Vitamin D deficiency, unspecified Medications: Changed From prednisone 10 mg (2 x 5 mg) PO DAILY 14 tabs 0RF M06.00 - Rheumatoid arthritis without rheumatoid factor, unspecified site To prednisone 10 mg (2 x 5 mg) PO DAILY 14 tabs 0RF 7 days M06.00 - Rheumatoid arthritis without rheumatoid factor, unspecified site
--- OUTSIDE RECORDS SUMMARY | 2024-09-14 09:10 | XMS_ITS | Clinical Summary ---
Author Organization [facility] Address [address] [place] [id number] Care Team Providers Care Sleep Lab Technician Name Role Phone Bunny Hdez MD Primary Care Provider [phone] Social History Tobacco Use Types Packs/Day Years [...] age to complete this topic Care Teams Sleep Lab Technician Relationship Specialty Start Date End Date Bunny Hdez MD [address] [place] [address] [place] [id number] PCP - General Internal Medicine 08/14/20
== END 2024-09-14 09:28 | disposition home or self-care (01) ==
LOC: HO.HMCH 08:51
PROVIDERS: PCP Internal Medicine; Visit Provider Internal Medicine
DX: E78.00 Pure hypercholesterolemia, unspecified (principal); M06.00 Rheumatoid arthritis without rheumatoid factor, unspecified site; E66.01 Morbid (severe) obesity due to excess calories; Z68.42 Body mass index [BMI] 45.0-49.9, adult; J45.20 Mild intermittent asthma, uncomplicated; R73.01 Impaired fasting glucose; M79.7 Fibromyalgia; M13.0 Polyarthritis, unspecified; M16.0 Bilateral primary osteoarthritis of hip; M48.02 Spinal stenosis, cervical region; L50.9 Urticaria, unspecified; E55.9 Vitamin D deficiency, unspecified

== ENCOUNTER → 2024-09-14 08:50 | Outpatient (BNVA) | payer OTHER, SELFPAY | PROVIDERS: PCP Internal Medicine; Visit Provider Internal Medicine | DX: G47.33 Obstructive sleep apnea (adult) (pediatric) (principal); M25.532 Pain in left wrist; M06.00 Rheumatoid arthritis without rheumatoid factor, unspecified site; E78.00 Pure hypercholesterolemia, unspecified; J45.20 Mild intermittent asthma, uncomplicated; R73.01 Impaired fasting glucose; M79.7 Fibromyalgia; M16.0 Bilateral primary osteoarthritis of hip; M48.02 Spinal stenosis, cervical region; L50.9 Urticaria, unspecified; E55.9 Vitamin D deficiency, unspecified; H40.9 Unspecified glaucoma; F41.9 Anxiety disorder, unspecified; F17.210 Nicotine dependence, cigarettes, uncomplicated; E66.01 Morbid (severe) obesity due to excess calories; Z68.42 Body mass index [BMI] 45.0-49.9, adult; Z99.89 Dependence on other enabling machines and devices | CPT/HCPCS: 96127; 99212 ==

== ENCOUNTER 2024-11-02 10:43 | Outpatient (AMB) | payer OTHER, SELFPAY ==
--- NOTE | 2024-11-02 11:05 | MHC.OFFVIS ---
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 Has trouble sleeping. Currently not sexually active. Denies any vaginal dryness or irritation. STI testing offered; she declines. Attempting to eat a healthy diet with calcium and vitamin D and stays active with exercise. Last pap smear; 2023, negative. Last mammogram; 2024. Colonoscopy is UTD. Denies any family history of breast, ovarian or colon cancer. [facility] Medical History Osteoarthritis of hips, bilateral Cataract Anxiety Glaucoma Seronegative rheumatoid arthritis Hot flashes Pure hypercholesterolemia Impaired fasting glucose Numbness and tingling in left hand Obstructive sleep apnea Polyarthritis Degenerative cervical spinal stenosis Morbid obesity with body mass index (BMI) of 40.0 to 49.9 Right shoulder pain Pain and swelling of left upper extremity Dermatitis Tubular adenoma REGINO on CPAP Hives Smoker Asthma Fibromyalgia Bilateral hand pain Weakness of both hands Arthralgia Surgical History H/O neck surgery H/O colonoscopy History of History of repair of rotator cuff Family History Father Medical history unknown Mother Medical history unknown Paternal Grandfather Diabetes FH: HTN (hypertension) Social History Household Members: Family Housing: House Are you a primary healthcare financial analyst to a significant other at home: No Do you presently have visiting nurse or other home services: No Alcohol intake: current Alcohol intake frequency: holidays/special occasions only Patient Tobacco Use Status: Current everyday Tobacco user Tobacco use type: Cigarette Cigarettes Per Day: 10 e-Cigarette/Vaping Use: Never Used Second Hand Smoke Exposure: Yes service: No Current occupational status: disabled Gender identity: Female Cognitive needs: No Hearing needs: No Vision needs: Yes Female Reproductive History Menstrual Total pregnancies: 2 Number of Living Children: 0 Ab induced: 2 Date of last pap smear: 10/30/23 (neg pap and hpv) Date of Mammogram: 04/21/24 (Birad 1) Review of Systems Const All systems reviewed & are unremarkable except as noted in HPI and below Reports as per HPI Eyes Reports no additional complaints ENT Reports no additional complaints Card Reports no additional complaints Resp Reports no additional complaints GI Reports as per HPI and Reports no additional complaints Reports as per HPI Musc Reports no additional complaints Skin/Breast Reports as per HPI Neuro Reports no additional complaints Psych Reports no additional complaints Endo Reports no additional complaints Marco Antonio/Lymph Reports no additional complaints Aller/Immun Reports no additional complaints Physical Exam Const General: cooperative, healthy appearing, no acute distress, well developed and alert Orientation/consciousness: patient oriented x3 HEENT Head: Yes normal to inspection Eyes General: appearance normal, both eyes and all related structures Neck Neck: Yes normal visual inspection Thyroid: Thyroid normal Chest Chest palpation & inspection: normal inspection of the chest and other (no puckering, dimpling, peau de orange, retraction, discharge, masses) Breast/axilla inspection: normal inspection of the breasts Breast/axilla palpation: normal palpation of the breasts Resp Effort & Inspection: normal respiratory effort GI Inspection: Yes normal to inspection Palpation (GI): Soft to palpation Rectal Exam - Female: deferred General: Yes bladder normal to palpation External Female Exam: normal external appearance and normal appearance of the urethra Speculum Exam - Vagina: normal appearance of the vagina, normal palpation, normal vaginal discharge and vagina atrophic Speculum Exam - Cervix: normal appearance of the cervix and normal palpation Bimanual exam- vagina & uterus: normal bimanual exam, normal palpation, uterine size normal, bladder normal to palpation, normal palpation and non-tender Bimanual Exam- Adnexa, other: no masses Skin General skin exam: no rashes or lesions noted Rashes: no rashes Neuro General: patient oriented x3 Cognition (Neuro): normal cognition Extrem General: Yes normal to inspection Psych Attitude: cooperative Thought process: Normal thought process present Assessment & Plan Assessment & Plan (1) Encounter for well woman exam with routine gynecological exam: Code(s): Z01.419 - Encounter for gynecological examination (general) (routine) without abnormal findings Category: Medical Plan Discussed: Current recommendations for pap smears per ASCCP guidelines. Breast awareness, periodic self breast exams and yearly mammogram. Maintain a healthy lifestyle, well balanced diet including Calcium 1,200 mg and Vitamin D 600 IU daily, and routine exercise. Contact the office with any postmenopausal bleeding. Patient verbalizes understanding and agrees to the plan of care. She was given opportunity to ask questions and all questions were answered to the best of my ability. 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 This note is constructed using voice recognition software. While every effort has been made to ensure accuracy, nocturnist errors may have been included. Coding Level of Care Code Est Pt Prev Care 40-64y(00973) Diagnoses Encounter for well woman exam with routine gynecological exam Z01.419
[2024-11-02 11:07] VITALS: BP 120/84; BMI 49.8
--- OUTSIDE RECORDS SUMMARY | 2024-11-02 13:31 | XMS_ITS | Clinical Summary ---
Author Organization [facility] Address [address] [place] [id number] Care Team Providers Care Woodyard Crane Operator Name Role Phone Bunny Hdez MD Primary Care Provider [phone]- [phone] Social History Tobacco Use Types Packs/Day Years [...] age to complete this topic Care Teams Woodyard Crane Operator Relationship Specialty Start Date End Date Bunny Hdez MD [address] [place] [address] [place] [id number] PCP - General Internal Medicine 08/14/20
== END 2024-11-02 11:33 | disposition home or self-care (01) ==
LOC: HO.HWS 10:43
PROVIDERS: PCP Internal Medicine; Visit Provider Advanced Practice Midwife
DX: Z01.419 Encounter for gynecological examination (general) (routine) without abnormal findings (principal)
CPT/HCPCS: 99396; 99459

== ENCOUNTER → 2024-11-02 10:43 | Outpatient (BNVA) | payer OTHER, SELFPAY | PROVIDERS: PCP Internal Medicine; Visit Provider Advanced Practice Midwife | DX: Z01.419 Encounter for gynecological examination (general) (routine) without abnormal findings (principal) | CPT/HCPCS: 99396 ==

== ENCOUNTER 2025-01-16 13:45 | Outpatient (REF) | payer OTHER, SELFPAY ==
[2025-01-16 14:11] LABS: Hematocrit 42.1 % (37.0-47.0); Hemoglobin 13.8 g/dl (12.0-16.0); Mean Corpuscular HGB Conc 32.8 g/dl (31.0-35.0); Mean Corpuscular Hemoglobin 29.8 pg (27.0-33.0); Mean Corpuscular Volume 90.9 fL (80.0-98.0); NRBC Abs Auto 0.000 X10*3/uL (0.0-0.012); NRBC Pct Auto 0.0 /100WBC (0.0-0.2); Platelet Count 207 X10*3/uL (160-400); Red Blood Count 4.63 X10*6/uL (4.20-5.50); WBC ABN SCTR FOR CBC 1
[2025-01-16 14:27] LABS: Appearance Urine Cloudy; Glucose Urine UA Negative (Negative); PH 5.5 (5.0-9.0); Specific Gravity - Urine 1.020 (1.005-1.025); UMIC TRIGGER UACC YES
[2025-01-16 14:34] LABS: Total Hemoglobin (HGBA1C) 2424.3776 umol/L
[2025-01-16 14:44] LABS: Atypical Lymphs Percent Manual 3 % (0-6); Band Neutrophils Percent 0 % (3-5); Eosinophils Percent Manual 2 % (0-4); Lymphocytes Percent Manual 32 % (20-40); Monocytes Percent Manual 9 % (2-11); Neutrophils Percent Manual 54 % (45-73); RBC Morphology NORMAL
[2025-01-16 14:47] LABS: Target Cells 1+ (5-14) /OIF
[2025-01-16 14:48] LABS: Large Platelet PRESENT
[2025-01-16 14:49] LABS: Basophilic Stippling 1+ (0-2) /OIF
[2025-01-16 14:50] LABS: Alanine Aminotransferase 21 U/L (0-31); Albumin Level 4.4 g/dL (3.5-5.0); Alkaline Phosphatase 80 U/L (39-117); Anion Gap 11 (12-20); Aspartate Amino Transferase 19 U/L (5-31); Atypical Lymph Absolute Manual 0.2 x10*3/uL; Blood Urea Nitrogen 14 mg/dL (9-16); Burr Cells 1+ (0-2) /OIF; Calcium 9.1 mg/dL (8.4-10.2); Carbon Dioxide 27 mmol/L (22-29); Chloride 108 mmol/L (96-108); Cholesterol 201 mg/dL (<200); Eosinophils Absolute Manual 0.1 X10*3/uL (0.0-0.4); Estimated Glomerular Filt Rate > 60; HDL Cholesterol 42 mg/dL (>40); Lymphocytes Absolute Manual 2.0 X10*3/uL (1.2-4.9); Monocytes Absolute Manual 0.5 X10*3/uL (0.1-1.2); Neutrophils Absolute Manual 3.3 X10*3/uL (2.0-8.3); Potassium 4.6 mmol/L (3.3-5.1); Schistocytes 1+ (0-2) /OIF; Sodium 141 mmol/L (135-145); Total Protein 6.9 g/dL (6.5-8.0); Triglycerides 101 mg/dL (<150); White Blood Count 6.1 X10*3/uL (4.8-10.8)
--- OUTSIDE RECORDS SUMMARY | 2025-01-16 17:16 | XMS_ITS | Clinical Summary ---
Author Organization [facility] Address [address] [place] [id number] Care Team Providers Care Valuation Consultant Name Role Phone Bunny Hdez MD Primary Care Provider [phone]- [phone] Social History Tobacco Use Types Packs/Day Years [...] age to complete this topic Care Teams Valuation Consultant Relationship Specialty Start Date End Date Bunny Hdez MD [address] [place] [address] [place] [id number] PCP - General Internal Medicine 08/14/20
== END 2025-01-16 13:46 | disposition home or self-care (01) ==
LOC: HO.LAB 13:45
PROVIDERS: PCP Internal Medicine; Visit Provider Internal Medicine
DX: R73.01 Impaired fasting glucose (principal); E78.00 Pure hypercholesterolemia, unspecified; M25.50 Pain in unspecified joint; E55.9 Vitamin D deficiency, unspecified
CPT/HCPCS: 36415; 80053; 80061; 81001; 82306; 83036; 84443; 85007; 85025; 85027; 85652

== ENCOUNTER 2025-01-19 08:52 | Outpatient (AMB) | payer OTHER, SELFPAY ==
[2025-01-19 08:54] VITALS: BP 136/84; PULSE 97; O2SAT 93; BMI 50.3
--- NOTE | 2025-01-19 08:54 | MHC.PC.OV ---
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: No Accompanied by: Self / Same As Patient Allergies tramadol Allergy (Severe, Verified 01/19/25 09:17) n/v Penicillins (PENICILLINS) Allergy (Intermediate, Verified 01/19/25 09:17) HIVES Medication List - Last Reconciled 01/19/25 by Bunny Hdze MD celecoxib (Celebrex) 200 mg PO BID cetirizine (Zyrtec) 10 mg PO DAILY cholecalciferol (vitamin D3) 50 mcg PO DAILY 90 days fluticasone propionate 110 mcg/actuation (Flovent HFA) 2 puffs inhalation BID 30 days ketorolac 0.5% drps ophthalmic (eye) latanoprost 0.005% 1 drp ophthalmic (eye) QPM lidocaine 5% 1 patch topical DAILY 30 days nicotine 1 patch transdermal DAILY 7 days nicotine 1 patch transdermal DAILY 7 days nicotine 1 patch transdermal Q24H 28 days prednisolone acetate 1% drps ophthalmic (eye) sulfasalazine 1,500 mg (3 x 500 mg) PO BID 90 days Ventolin HFA 90 mcg/actuation (albuterol sulfate) 2 puffs inhalation Q6H PRN NS Tobacco use date assessed: 01/19/25 Dental Screening Dental Screen Date: 01/19/25 Did you have a dental visit in the last 12 months?: Yes Did you have a dental problem in the last 6 months where you did not have access to dental care?: No Was dental information given to patient?: Patient has dentist HPI 4 mnth f/u HPI Details - The patient is a 54 year old female presenting with multiple complaints including foot swelling, insomnia, eye floaters, and weight gain. - She reports developing bilateral foot and leg swelling since moving to a new apartment approximately 3 weeks ago. - She suspected her sulfasalazine medication was the cause of the swelling, stopped taking it, and has noted improvement, though the swelling does not resolve completely. The swelling is noted to be worse at the end of the day. - She states the sulfasalazine was not providing significant relief for her aches. - For the last month, she has had significant difficulty sleeping, estimating a total of only 30 hours of sleep in that period. - She is unable to sleep in her bed at her apartment, but can get a couple of hours of sleep if she lies back on the loveseat at her home or her mother's home. - This sleeping habit may be contributing to her leg swelling as her legs are in a dependent position for prolonged periods, as she does not sleep flat in a bed. - The patient also reports a sudden onset of increased eye floaters which have not gone away. - She has also noted recurring, hard lesions on her finger and hands, which she is able to pick off but they tend to grow back. - She has gained approximately 10 pounds since August, with a current weight of 293 pounds, compared to 283 pounds in August. 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 Lucio, moved to a different office location. - She is also requesting for a referral to weight management and is open to having gastric bypass surgery done if it will help her lose weight effectively She denies any headaches or dizziness lately Denies any chest pains, no increased SOB No nausea/vomiting, no abdominal pain No change in bowel habits noted She had her follow up labs done a few days ago - to discuss her results [facility] Medical History Osteoarthritis of hips, bilateral Cataract Anxiety Glaucoma Seronegative rheumatoid arthritis Hot flashes Pure hypercholesterolemia Impaired fasting glucose Numbness and tingling in left hand Obstructive sleep apnea Polyarthritis Degenerative cervical spinal stenosis Morbid obesity with body mass index (BMI) of 40.0 to 49.9 Right shoulder pain Pain and swelling of left upper extremity Dermatitis Tubular adenoma REGINO on CPAP Hives Smoker Asthma Fibromyalgia Bilateral hand pain Weakness of both hands Arthralgia Surgical History H/O neck surgery H/O colonoscopy History of History of repair of rotator cuff Family History Father Medical history unknown Mother Medical history unknown Paternal Grandfather Diabetes FH: HTN (hypertension) Social History Household Members: Family Housing: House Are you a primary nurse behavioral health care to a significant other at home: No Do you presently have visiting nurse or other home services: No Alcohol intake: current Alcohol intake frequency: holidays/special occasions only Patient Tobacco Use Status: Current everyday Tobacco user Tobacco use type: Cigarette Cigarettes Per Day: 10 e-Cigarette/Vaping Use: Never Used Second Hand Smoke Exposure: Yes service: No Current occupational status: disabled Gender identity: Female Cognitive needs: No Hearing needs: No Vision needs: Yes Questionnaire PHQ-9 Over the last 2 weeks, how often have you been bothered by any of the following problems? 1. Little interest or pleasure in doing things: not at all 2. Feeling down, depressed, or hopeless: several days 3. Trouble falling or staying asleep, or sleeping too much: not at all 4. Feeling tired or having little energy: more than half the days 5. Poor appetite or overeating: not at all 6. Feeling bad about yourself - or that you are a failure or have let yourself or your family down: several days 7. Trouble concentrating on things, such as reading the newspaper or watching television: not at all 8. Moving or speaking so slowly that other people could have noticed. Or the opposite - being so fidgety or restless that you have been moving around a lot more than usual: not at all 9. Thoughts that you would be better off or of hurting yourself in some way: not at all Total score: 4 Depression Screening Interpretation: Positive Depression Screening Follow-up: Existing condition and In treatment Depression Screening Done: Yes 29850 - PHQ-9 Billing: Yes Source: Developed by Drs. Alberto Gaytan, Wendy Hernandez, Tonny Ward and colleagues, with an educational di from [employer]. Thrive Questionnaire Date Thrive assessed: 01/19/25 I am a: Patient What is your living situation today?: I have a steady place to live Within the past 12 months, did the food you bought not last and you didn't have the money to get more?: Sometimes True Within the past 12 months, did you worry whether your food would run out before you got money to buy more?: Often true Do you have trouble paying for medicines?: No Do you have trouble getting transportation to medical appointments?: No Do you have trouble paying your heating and electricity bill?: Yes Do you have trouble taking care of your child, family member or friend?: No Do you have trouble with day-to-day activities such as bathing, preparing meals, shopping, managing finances, etc.?: Yes Are you currently unemployed and looking for a job?: No Are you interested in more education?: No Please select the resources that you would like help with: None Currently or been in a relationship where the following occur: No concerns reported THRIVE Score: 3 AUDIT C Alcohol Use Questionnaire (AUDIT-C) 1. How often do you have a drink containing alcohol?: Monthly or less 2. How many drinks containing alcohol do you have on a typical day when you are drinking?: 1 or 2 3. How often do you have six or more drinks on one occasion?: Never Total Score: 1 Score Reviewed/Action Taken: Yes VIPUL-7 AMB Questionnaire VIPUL-7 Date VIPUL - 7 assessed: 01/19/25 Feeling nervous, anxious, or on edge: 2 = More than half the days Not being able to stop or control worryin = More than half the days Worrying too much about different things: 3 = Nearly every day Trouble relaxin = More than half the days Being so restless that it is hard to sit still: 0 = Not at all Becoming easily annoyed or irritable: 3 = Nearly every day Feeling afraid as if something awful might happen: 1 = Several days Total VIPUL-7 score (0-4 normal; 5-9 mild; 10-14 moderate; 15-21 severe): 13 Source: Developed by Drs. Alberto Gaytan, Wendy Hernandez, Tonny Ward and colleagues, with an educational di from [employer]. Review of Systems Const Reports body aches, Reports difficulty sleeping, Reports fatigue, Denies fever(s) and Denies headache(s) ENT Denies dysphagia, Denies dizziness, Denies otalgia, Denies headache(s), Reports neck pain, Denies odynophagia and Denies sore throat Card Denies chest pain, Denies palpitations and Denies dyspnea Resp Denies chest congestion, Denies cough and Denies dyspnea GI Denies abdominal pain, Denies constipation, Denies dysphagia, Denies heartburn, Denies diarrhea, Denies nausea, Denies odynophagia and Denies vomiting Denies difficulty voiding, Denies nocturia, Denies dysuria and Denies urinary urgency Musc Reports back pain, Reports myalgias (diffuse), Reports arthralgias (over multiple joints; increased pain over the left wrist at present), Reports neck pain and Reports stiffness (over multiple joints) Skin/Breast Denies rash Neuro Denies dizziness and Denies headache(s) Endo Reports fatigue and Denies palpitations Marco Antonio/Lymph Details: on and off swelling of both legs - see HPI for details Physical exam (Primary Care) Vital Signs: Last Vital Signs Pulse 97 01/19/25 08:54 BP 136/84 01/19/25 08:54 Pulse Ox 93 01/19/25 08:54 Oxygen Delivery Method Room Air 01/19/25 08:54 BMI result Body Mass Index 50.3 Tobacco/Smoking Status: Tobacco use Status Tobacco use date assessed 01/19/25 01/19/25 09:00 Patient Tobacco Use Status Current everyday Tobacco 01/19/25 09:00 Tobacco use type Cigarette 01/19/25 09:00 e-Cigarette/Vaping Use Never Used 01/19/25 09:00 PHQ-9: PHQ-9 Score PHQ-9: Total score 4 01/19/25 09:00 Depression Screening Interpretation: Positive Depression Screening Follow-up: Existing condition and In treatment Thrive Assessment: Date of Thrive Assessment Date Thrive assessed 01/19/25 01/19/25 09:00 Currently or been in a relationship where the following occur: No concerns reported Const General: no acute distress and alert HENMT Ears: TM's normal bilaterally and EAC's normal Throat: Yes posterior oropharynx normal and Yes tonsils normal (no TP congestion noted) Neck Neck: Yes supple and No lymphadenopathy Thyroid: Thyroid normal Resp Auscultation: clear to auscultation bilaterally, no rales, no wheezes and diminished lung sounds (slightly) diffuse Cardio Rate: regular rate Rhythm: regular rhythm Heart sounds: no murmurs GI Palpation (GI): Soft to palpation and nontender Auscultation: normal bowel sounds General: Yes no CVA tenderness Back/Spine/Pelvis Back: no CVA tenderness Cervical Spine: Cervical spine tenderness Thoracic/Lumbar Spine: lumbar spinal tenderness Skin Rashes: no rashes Extrem General: No clubbing, No cyanosis and Yes pedal edema (1+ bilateral) Right upper extremity: wrist Details: tenderness; no swelling Left upper extremity: wrist ((+) Phalen's test) Right lower extremity: hip/thigh Details: tenderness Location: of the hip and knee Details: tenderness Left lower extremity: hip/thigh Details: tenderness Location: of the hip and knee Details: tenderness Results Reviewed Results Reviewed: Laboratory Tests 03/11/24 01/16/25 01/16/25 10:37 13:50 13:59 WBC 6.1 Hgb 13.8 Hct 42.1 Plt Count 207 ESR 18 Sodium 141 Potassium 4.6 Creatinine 0.74 Estimated GFR > 60 Fasting Glucose 106 H Hemoglobin A1c % 5.8 Calcium 9.1 D AST 19 ALT 21 Cholesterol 220 H 201 H Triglycerides 101 LDL Cholesterol, Calc 151 H 139 H HDL Cholesterol 42 25-OH Vitamin D Total 35.0 TSH 1.24 Ur Specific [place] 1.020 Urine Protein Negative Urine Glucose (UA) Negative Urine Blood Small (1+) H Urine Nitrite Negative Ur Leukocyte Esterase Negative Coding Level of Care Code Est Pt Level 4 (62762) Diagnoses Pure hypercholesterolemia E78.00 Mild intermittent asthma without complication J45.20 Asthma severity: mild Asthma persistence: intermittent Asthma complication type: uncomplicated Impaired fasting glucose R73.01 Seronegative rheumatoid arthritis M06.00 Fibromyalgia M79.7 Polyarthritis M13.0 Primary osteoarthritis of both hips M16.0 Osteoarthritis type: primary Degenerative cervical spinal stenosis M48.02 Hives L50.9 Vitamin D deficiency E55.9 Obstructive sleep apnea G47.33 Glaucoma of both eyes, unspecified glaucoma type H40.9 Glaucoma type: unspecified Laterality: bilateral Insomnia, unspecified type G47.00 Insomnia type: unspecified Anxiety F41.9 Smoker F17.200 Morbid obesity with BMI of 50.0-59.9, adult E66.01; Z68.43 Additional Codes PHQ-9 - 95819 - PHQ-9 Billing: Yes ([id number]) Assessment & Plan Assessment & Plan (1) Pure hypercholesterolemia: Code(s): E78.00 - Pure hypercholesterolemia, unspecified Category: Medical Plan: Results of her labs done a few days ago reviewed and discussed with patient - she is advised that her cholesterol levels are still high but have improved significantly from before Reinforced low cholesterol diet She has declined offer to start her on cholesterol-lowering medications in the past and continues to decline pharmacotherapy for her cholesterol Will recheck her labs and fasting lipids in 4 months for follow up (2) Asthma: Code(s): J45.909 - Unspecified asthma, uncomplicated Category: Medical Qualifiers: Asthma severity: mild Asthma persistence: intermittent Asthma complication type: uncomplicated Qualified Code(s): J45.20 - Mild intermittent asthma, uncomplicated Plan: Controlled Continue Flovent HFA 110 mcg 2 inhalations BID, Montelukast 10 mg QD and Albuterol HFA 2 inhalations every 6 hours as needed (3) Impaired fasting glucose: Code(s): R73.01 - Impaired fasting glucose Category: Medical Plan: Her HgbA1c remains unchanged from before at 5.8% on her recent labs - was also at 5.8% when previously checked in January 2023 and at 5.5% on her labs done back in February 2024 Reinforced low calorie/low carb diet She is advised again that exercise and losing weight can also help but she again states that it is impossible for her to do any exercise other than some stationary ones that she can do in a sitting position, given her current conditions and physical issues Will recheck her FBS and HgbA1c in 4 months for follow up (4) Seronegative rheumatoid arthritis: Code(s): M06.00 - Rheumatoid arthritis without rheumatoid factor, unspecified site Category: Medical Plan: She was seen by Dr. Lucero in [place] a couple of years ago and no additional recommendations were provided/offered She started seeing Dr. Peters at [facility] last year and was worked up for inflammatory arthritis and diagnosed with seronegative rheumatoid arthritis Patient declined offer to start her on Methotrexate previously due to fear of side effects and was started instead on Sulfasalazine 1 gm BID She was determined to have inadequate response to Tx and was started additionally on Enbrel last year but this was also eventually discontinued due to lack of efficacy She was then switched over to Actemra but patient decided not to start Actemra after reading up on its potential side effects and the fact that it is also used to treat certain forms of cancer She has since stayed on Sulfasalazine and PRN Prednisone but stopped taking Sulfasalazine due to increased swelling of her legs and feet, which she believes is a side effect of her Sulfasalazine She is now seeing Dr. Lucio - to follow-up with rheumatology as scheduled Have advised her that there are no other local rheumatologists here at [place] and rheumatology as a whole was moved down to our [place] location and it is not that hard to get to and [facility] (5) Fibromyalgia: Code(s): M79.7 - Fibromyalgia Category: Medical Plan: She is again encouraged to continue with regular exercise and physical activity (as tolerated) to help manage her fibromyalgia symptoms better She was tried on Pregabalin 150 mg TID for a few months but states that it did not help (6) Polyarthritis: Code(s): M13.0 - Polyarthritis, unspecified Category: Medical Plan: Follow up with [facility] and with [facility] as scheduled She has received joint injections in the past but patient states that they did not help much although she recently started back up with pain management again for injections/interventional Tx She has reportedly been advised by orthopedics that they will only consider scheduling her for joint replacement surgery if she can lose weight and get her BMI down to at least <45 - patient reports that she can hardly do any activity or exercise and is not optimistic that she can lose any significant amount of weight to get to where she needs to be She was also eventually diagnosed with RA and is being treated/managed by rheumatology for this Per request, will start her again on 7 days of oral Prednisone 5 mg BID for her increased left wrist pain and swelling recently (7) Osteoarthritis of hips, bilateral: Code(s): M16.0 - Bilateral primary osteoarthritis of hip Category: Medical Qualifiers: Osteoarthritis type: primary Qualified Code(s): M16.0 - Bilateral primary osteoarthritis of hip Plan: MRI of the hips done back in 2012 revealed minimal degenerative arthritis in the left hip and mild degenerative arthritis in the right hip Per request, was sent for repeat MRI of the hips for further evaluation of her increasing bilateral hip pain but this was denied by insurance Follow up with [facility] as scheduled (8) Degenerative cervical spinal stenosis: Comment: S/P anterior discectomy Code(s): M48.02 - Spinal stenosis, cervical region Category: Medical Plan: Patient reports (+) improvement of pain in her left wrist since her cervical spine discectomy but she still has weakness and on and off pain radiating down her left arm at times Follow up with neurosurgery as scheduled (9) Hives: Code(s): L50.9 - Urticaria, unspecified Category: Medical Plan: Continue Cetirizine 10 mg QD PRN (10) Vitamin D deficiency: Code(s): E55.9 - Vitamin D deficiency, unspecified Category: Medical Plan: Continue Vitamin D3 2000 units QD (11) Obstructive sleep apnea: Code(s): G47.33 - Obstructive sleep apnea (adult) (pediatric) Category: Medical Plan: She was scheduled for a repeat study at [facility] in December 2021 but states that she was eventually advised by her sleep specialist that it is not worth doing as it is not going to provide any additional useful information at this time Follow up with sleep medicine as scheduled or as needed (12) Glaucoma: Code(s): H40.9 - Unspecified glaucoma Category: Medical Qualifiers: Glaucoma type: unspecified Laterality: bilateral Qualified Code(s): H40.9 - Unspecified glaucoma Plan: S/P eye surgery in April 2024 for her cataract and glaucoma Continue Rhopressa 1 drop into each eye Q HS, Latanoprost 0.005% 1 drop into each eye Q PM and Brimonidine 0.2% 1 drop into each eye TID Follow up with ophthalmology as scheduled (13) Insomnia: Code(s): G47.00 - Insomnia, unspecified Category: Medical Qualifiers: Insomnia type: unspecified Qualified Code(s): G47.00 - Insomnia, unspecified Plan: Sleep hygiene discussed although have advised patient that based on what she is telling us (see HPI), it seems like her issues with sleeping are more due to anxiety Will try her on some Trazodone 50 mg Q HS PRN but advised that if she can figure out what is triggering or aggravating her anxiety and get it controlled better, then her issues with falling asleep may just resolve on their own (14) Anxiety: Code(s): F41.9 - Anxiety disorder, unspecified Category: Medical Plan: Patient felt that she was having issues with increasing anxiety earlier this year and thought that she has PTSD She was seeing a therapist at [facility] in the past but states that her therapist left the area months ago and she has not seen anybody since She does not want to go to [facility] as her mother supposedly works there We have offered to refer her back to [facility] but she declined - states that she will call for referral if she decides to go back to [facility] (15) Smoker: Code(s): F17.200 - Nicotine dependence, unspecified, uncomplicated Category: Social Hx Plan: Patient is counseled again on complete smoking cessation Continue Nicotine patches QD to help her quit smoking (16) Morbid obesity with BMI of 50.0-59.9, adult: Code(s): E66.01 - Morbid (severe) obesity due to excess calories; Z68.43 - Body mass index [BMI] 50.0-59.9, adult Category: Medical Plan: Reinforced diet/exercise as tolerated/lose weight but patient states that exercise is unrealistic given her current multiple conditions and physical issues She has gained about 10 pounds since her last visit and is not happy about this and is looking for anything that can help her lose weight - states that she is even open to having gastric bypass surgery if it will be effective for her Will refer her to weight management here at [facility] to help her explore her weight loss options Plan Follow up in 4 months Orders: Orders Complete Blood Count Auto Diff 4 Months D64.9 - Anemia, unspecified Comprehensive [place]. Panel Fast 4 Months E78.00 - Pure hypercholesterolemia, unspecified Lipid Panel 4 Months E78.00 - Pure hypercholesterolemia, unspecified TSH reflex Free T4 4 Months E78.00 - Pure hypercholesterolemia, unspecified UA CC w/rflx Micro + Cult 4 Months R30.0 - Dysuria Hemoglobin A1c 4 Months R73.01 - Impaired fasting glucose Vitamin D 25-OH Total 4 Months E55.9 - Vitamin D deficiency, unspecified Referrals Medical Weight Management Referral E66.01 - Morbid (severe) obesity due to excess calories, Z68.43 - Body mass index [BMI] 50.0-59.9, adult Medications: New trazodone 50 mg PO BEDTIME PRN 30 tabs 1RF sleep 30 days
== END 2025-01-19 09:42 | disposition home or self-care (01) ==
LOC: HO.HMCH 08:53
PROVIDERS: PCP Internal Medicine; Visit Provider Internal Medicine
DX: E78.00 Pure hypercholesterolemia, unspecified (principal); J45.20 Mild intermittent asthma, uncomplicated; R73.01 Impaired fasting glucose; M06.00 Rheumatoid arthritis without rheumatoid factor, unspecified site; M79.7 Fibromyalgia; M13.0 Polyarthritis, unspecified; M16.0 Bilateral primary osteoarthritis of hip; M48.02 Spinal stenosis, cervical region; L50.9 Urticaria, unspecified; E55.9 Vitamin D deficiency, unspecified; E66.01 Morbid (severe) obesity due to excess calories; Z68.43 Body mass index [BMI] 50.0-59.9, adult; G47.33 Obstructive sleep apnea (adult) (pediatric); H40.9 Unspecified glaucoma; G47.00 Insomnia, unspecified; F41.9 Anxiety disorder, unspecified; F17.200 Nicotine dependence, unspecified, uncomplicated

== ENCOUNTER → 2025-01-19 08:52 | Outpatient (BNVA) | payer OTHER, SELFPAY | PROVIDERS: PCP Internal Medicine; Visit Provider Internal Medicine | DX: E78.00 Pure hypercholesterolemia, unspecified (principal); J45.20 Mild intermittent asthma, uncomplicated; R73.01 Impaired fasting glucose; M06.00 Rheumatoid arthritis without rheumatoid factor, unspecified site; M79.7 Fibromyalgia; M13.0 Polyarthritis, unspecified; M16.0 Bilateral primary osteoarthritis of hip; M48.02 Spinal stenosis, cervical region; L50.9 Urticaria, unspecified; E55.9 Vitamin D deficiency, unspecified; G47.33 Obstructive sleep apnea (adult) (pediatric); H40.9 Unspecified glaucoma; G47.00 Insomnia, unspecified; F41.9 Anxiety disorder, unspecified; F17.210 Nicotine dependence, cigarettes, uncomplicated; E66.01 Morbid (severe) obesity due to excess calories; Z68.43 Body mass index [BMI] 50.0-59.9, adult | CPT/HCPCS: 96127; 99212 ==